=== PATIENT | male | born 1990 | race Caucasian/White ===

== ENCOUNTER 2020-04-14 19:24 | Inpatient (IN) | payer BC, OTHER ==
[~2020-04-14] VITALS: Ht 185.4 cm; Wt 106.0 kg
--- NOTE | 2020-04-14 19:30 | NUR ---
PT IGNACIA SOLIZ TO THIS ED FROM , PT TRANSFERRED HERE FOR ABNORMAL LABS H/H OF 5.7/16.3. PT GIVEN TRANSFUSION OF ONE UNIT PRIOR TO TRANSFER. PT STATES HE FEELS EXTREMELY DIZZY WHEN STANDING AND MOVING AROUND. ALSO REPORTS SLIGHT SOB WITH EXERTION LIKELY D/T ANEMIA. PT PLACED ON SPO2/BP/ECG MONITORING. PROVIDED WARM BLANKET FOR COMFORT, WCTM.
[2020-04-14] MEDS ORDERED: HYDROmorphone 1 MG/ML, 1ML INJ IVPush PRN (21:00)
[2020-04-14] MEDS ORDERED: HYDROmorphone 1 MG/ML, 1ML INJ ONE (21:04)
--- NOTE | 2020-04-14 21:24 | NUR ---
PT MEDICATED PER MAR FOR PAIN, CT COMPLETED WAITING FOR READ, PT RESTING ON GURNEY, NAD, DENIES ADDITIONAL QUESTIONS OR NEEDS AT THIS TIME. APPEARS COMFORTABLE, BED IN LOWEST, CALL LIGHT ON LAP, WCTM. WAITING FOR TEST RESULTS.
[2020-04-14 22:34] LABS: MEAN CORPUSCULAR HEMOGLOBIN 34.7 pg (27.5-34.5); RED BLOOD COUNT 1.86 x10^6/uL (4.38-5.82); RED CELL DISTRIBUTION WIDTH 17.4 % (9.4-14.8)
[2020-04-14 22:39] LABS: ALANINE AMINOTRANSFERASE 30 U/L (12-78); ALBUMIN 3.8 g/dL (3.4-5.0); ANION GAP 4 mmol/L (5-15); CALCIUM 8.7 mg/dL (8.5-10.1); CHLORIDE 109 mmol/L (98-107); CREATININE 0.91 mg/dL (0.7-1.3)
[2020-04-14 22:41] LABS: ALKALINE PHOSPHATASE 87 U/L (45-117); BILIRUBIN,TOTAL 0.4 mg/dL (0.2-1.0); TOTAL PROTEIN 7.6 g/dL (6.4-8.2)
[2020-04-14 23:13] LABS: PLATELET COUNT 11 x10^3/uL (130-400)
[2020-04-14 23:23] LABS: MD YES
[2020-04-14 23:34] LABS: LYMPH#(MANUAL) 1.95 x10^3/uL (1-3.4); LYMPHS% (MANUAL) 75 % (22-44); MONOS#(MANUAL) 0.03 x10^3/uL (0.3-2.7); MONOS% (MANUAL) 1 % (2-9); OTHER CELLS # (MANUAL) 0.16 x10^3/uL (0-0); REACTIVE LYMPHS # (MANUAL) 0.03 x10^3/uL (0-0); REACTIVE LYMPHS % (MANUAL) 1 % (0-0); SEG#(MANUAL) 0.44 x10^3/uL (1.8-6.8); SEGS% (MANUAL) 17 % (42-75)
--- NOTE | 2020-04-14 23:35 | NUR ---
ABSOLUTE NEUT COUNT 0.44
[2020-04-14 23:37] LABS: ANISOCYTOSIS 1+
[2020-04-14 23:39] LABS: OVALOCYTES 1+; ROULEAUX 1+
[2020-04-14 23:41] LABS: <PLATELET ESTIMATE> DECREASED; <PLT MORPHOLOGY> NORMAL PLT MORPH
[2020-04-14 23:46] LABS: OTHER CELLS % (MANUAL) 6 % (0-0)
[2020-04-15] VITALS (11 sets, daily range): BP systolic 113–133; BP diastolic 59–77
[2020-04-15 00:14] LABS: HCT (SEDRATE) 18.4 % (39.2-51.8)
--- NOTE | 2020-04-15 00:16 | NUR ---
PT RESTING ON GURNEY, EYES CLOSED, NAD, APPEARS COMFORTABLE, EVEN AND UNLABORED RESPIRATIONS, WCTM, WAITING FOR ADMIT BED.
--- NOTE | 2020-04-15 00:59 | NUR ---
REPORT FROM MILIND SAINZ
--- NOTE | 2020-04-15 01:03 | NUR ---
BEDSIDE REPORT TO ANANDA SAINZ, PT CARE TRANSFERRED AT THIS TIME. PT NAD, RESTING ON GURNEY, DENIES ADDITIONAL NEEDS, NO CHANGE IN CONDITION
--- NOTE | 2020-04-15 02:00 | NUR ---
PER LAB DO NOT WANT TO RUN ANTIBODY SCREEN "BECAUSE PT HAS ALREADY GOTTEN BLOOD AND IT WOULD NOT HELP TO RUN THE TEST." LAB INFORMED THAT DR VASQUEZ LIKELY WANTS THIS DONE FOR A PURPOSE AND RN WILL NOT CANCEL THE TEST BUT THEY ARE WELCOME TO CALL HER WITH THE CONCERNS. 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 ER SUP AND HOUSE SUP NOTIFIED OF LAB UNWILLINGNESS TO RUN TESTS.
--- NOTE | 2020-04-15 02:12 | NUR ---
BLOOD STILL INFUSING AT THIS TIME, NO ADVERSE REACTIONS NOTED. PT TOLERATING WELL
--- NOTE | 2020-04-15 02:43 | NUR ---
REPORT RECEIVED FROM ANANDA SAINZ
--- NOTE | 2020-04-15 02:44 | NUR ---
report received from bonita minor
--- NOTE | 2020-04-15 03:53 | NUR ---
pt placed on hospital bed.
--- NOTE | 2020-04-15 05:00 | NUR ---
PT SLEEPING, NO NEDS AT THIS TIME.
--- NOTE | 2020-04-15 06:07 | NUR ---
PT SLEEPING, NO NEEDS AT THIS TIME. RESP EVEN AND UNLABORED
[2020-04-15 06:15] LABS: ABSOLUTE RETICS # 0.029 x10^6/uL (0.5-1.5); MEAN CORPUSCULAR HGB CONC 34.7 g/dL (33.2-36.2); MEAN PLATELET VOLUME 8.1 fL (7.4-10.4); RED BLOOD COUNT 2.04 x10^6/uL (4.38-5.82); RETICULOCYTE COUNT % 1.43 % (0.5-1.5)
[2020-04-15 06:55] LABS: MD YES; PLATELET COUNT 12 x10^3/uL (130-400)
--- NOTE | 2020-04-15 06:58 | NUR ---
report given to rm minor
[2020-04-15 07:00] LABS: BAND#(MANUAL) 0.02 x10^3/uL; BANDS%(MANUAL) 1 % (0-7); EOS#(MANUAL) 0.02 x10^3/uL (0.0-0.4); EOS% (MANUAL) 1 % (1-7); LYMPH#(MANUAL) 1.05 x10^3/uL (1-3.4); LYMPHS% (MANUAL) 55 % (22-44); MONOS#(MANUAL) 0.04 x10^3/uL (0.3-2.7); MONOS% (MANUAL) 2 % (2-9); MYELOCYTES# (MANUAL) 0.02 x10^3/uL (0-0); MYELOCYTES% (MANUAL) 1 % (0-0); SEG#(MANUAL) 0.55 x10^3/uL (1.8-6.8); SEGS% (MANUAL) 29 % (42-75)
[2020-04-15 07:01] LABS: OTHER CELLS # (MANUAL) 0.21 x10^3/uL (0-0); OTHER CELLS % (MANUAL) 11 % (0-0)
[2020-04-15 07:03] LABS: <PLATELET ESTIMATE> DECREASED; ANISOCYTOSIS 1+; OVALOCYTES 1+
[2020-04-15 07:04] LABS: <PLT MORPHOLOGY> NORMAL PLT MORPH
[2020-04-15] MEDS: NICOTINE 14MG/24 HR PATCH.TD24 TD SCH (09:29)
[2020-04-15] MEDS ORDERED: ACETAMINOPHEN 325 MG TABLET PO ONE (12:00)
[2020-04-15] MEDS ORDERED: DIPHENHYDRAMINE 12.5MG/5ML, 10ML UDC PO ONE (12:00)
[2020-04-15] MEDS: OXYcodone IR 5MG TABLET PO PRN (16:04)
[2020-04-15 21:37] LABS: ABSOLUTE RETICS # 0.038 x10^6/uL (0.5-1.5); MEAN CORPUSCULAR HEMOGLOBIN 34.7 pg (27.5-34.5); MEAN CORPUSCULAR HGB CONC 35.9 g/dL (33.2-36.2); MEAN PLATELET VOLUME 7.8 fL (7.4-10.4); RED BLOOD COUNT 2.42 x10^6/uL (4.38-5.82); RED CELL DISTRIBUTION WIDTH 16.2 % (9.4-14.8); RETICULOCYTE COUNT % 1.57 % (0.5-1.5)
[2020-04-15 21:39] LABS: MD YES; PLATELET COUNT 40 x10^3/uL (130-400)
[2020-04-15 22:19] LABS: SEG#(MANUAL) 0.67 x10^3/uL (1.8-6.8); SEGS% (MANUAL) 29 % (42-75)
[2020-04-15 22:25] LABS: EOS#(MANUAL) 0.02 x10^3/uL (0.0-0.4); EOS% (MANUAL) 1 % (1-7); LYMPH#(MANUAL) 1.43 x10^3/uL (1-3.4); LYMPHS% (MANUAL) 62 % (22-44)
[2020-04-15 22:26] LABS: OTHER CELLS # (MANUAL) 0.18 x10^3/uL (0-0)
[2020-04-15 22:31] LABS: OTHER CELLS % (MANUAL) 8 % (0-0)
[2020-04-15 22:36] LABS: ANISOCYTOSIS 1+; OVALOCYTES 1+
[2020-04-15 22:37] LABS: <PLATELET ESTIMATE> DECREASED; <PLT MORPHOLOGY> NORMAL PLT MORPH; ROULEAUX 1+
[2020-04-16 04:00] VITALS: BP 126/75
[2020-04-16 05:08] VITALS: BP 126/75
[2020-04-16 06:13] LABS: MEAN CORPUSCULAR HEMOGLOBIN 34.5 pg (27.5-34.5); MEAN CORPUSCULAR HGB CONC 35.8 g/dL (33.2-36.2); MEAN PLATELET VOLUME 7.8 fL (7.4-10.4); RED BLOOD COUNT 2.51 x10^6/uL (4.38-5.82); RED CELL DISTRIBUTION WIDTH 16.3 % (9.4-14.8)
[2020-04-16 06:27] LABS: ALBUMIN 3.8 g/dL (3.4-5.0); ANION GAP 5 mmol/L (5-15); CALCIUM 9.1 mg/dL (8.5-10.1); CHLORIDE 107 mmol/L (98-107)
[2020-04-16 06:38] LABS: ALANINE AMINOTRANSFERASE 27 U/L (12-78); ALKALINE PHOSPHATASE 96 U/L (45-117); BILIRUBIN,TOTAL 0.4 mg/dL (0.2-1.0); CREATININE 1.02 mg/dL (0.7-1.3); TOTAL PROTEIN 7.9 g/dL (6.4-8.2)
[2020-04-16 06:40] LABS: PLATELET COUNT 36 x10^3/uL (130-400)
[2020-04-16 06:41] LABS: MD YES
[2020-04-16 06:45] LABS: ANISOCYTOSIS 1+; BLASTS # (MANUAL) 0.29 x10^3/uL (0-0); LYMPH#(MANUAL) 0.96 x10^3/uL (1-3.4); LYMPHS% (MANUAL) 37 % (22-44); METAMYELOCYTES# (MANUAL) 0.08 x10^3/uL (0-0); METAMYELOCYTES% (MANUAL) 3 % (0-1); OVALOCYTES 1+; SEG#(MANUAL) 1.27 x10^3/uL (1.8-6.8); SEGS% (MANUAL) 49 % (42-75)
[2020-04-16 06:46] LABS: POLYCHROMASIA 1+
[2020-04-16 06:48] LABS: <PLATELET ESTIMATE> DECREASED; <PLT MORPHOLOGY> NORMAL PLT MORPH; BLASTS % (MANUAL) 11 % (0-0)
[2020-04-16 06:50] LABS: TEAR DROPS 1+
[2020-04-16] MEDS: NICOTINE 14MG/24 HR PATCH.TD24 TD SCH (07:18)
[2020-04-16 07:55] VITALS: BP 128/79
[2020-04-16] MEDS: OXYcodone IR 5MG TABLET PO PRN ×2 (08:06→18:00)
[2020-04-16 11:06] LABS: D-DIMER 0.42 ug/mlFEU (0.00-0.52)
[2020-04-16 12:01] VITALS: BP 121/69
[2020-04-16 13:31] LABS: MICROSCOPIC NOT IND
[2020-04-16 18:54] VITALS: BP 182/82
[2020-04-16] MEDS: ACETAMINOPHEN 325 MG TABLET PO PRN (20:14)
[2020-04-17 00:36] VITALS: BP 123/76
[2020-04-17 05:58] LABS: MEAN CORPUSCULAR HEMOGLOBIN 34.8 pg (27.5-34.5); MEAN CORPUSCULAR HGB CONC 36.1 g/dL (33.2-36.2); MEAN PLATELET VOLUME 7.8 fL (7.4-10.4); RED BLOOD COUNT 2.72 x10^6/uL (4.38-5.82); RED CELL DISTRIBUTION WIDTH 15.9 % (9.4-14.8)
[2020-04-17 06:51] LABS: MD YES
[2020-04-17 06:53] LABS: BAND#(MANUAL) 0.03 x10^3/uL; BANDS%(MANUAL) 1 % (0-7); LYMPH#(MANUAL) 1.39 x10^3/uL (1-3.4); LYMPHS% (MANUAL) 41 % (22-44); MONOS#(MANUAL) 0.03 x10^3/uL (0.3-2.7); MONOS% (MANUAL) 1 % (2-9); SEG#(MANUAL) 1.53 x10^3/uL (1.8-6.8); SEGS% (MANUAL) 45 % (42-75)
[2020-04-17 06:58] LABS: ANISOCYTOSIS 1+; BLASTS # (MANUAL) 0.41 x10^3/uL (0-0); BLASTS % (MANUAL) 12 % (0-0); OVALOCYTES 1+; POLYCHROMASIA 1+; TEAR DROPS 1+
[2020-04-17 06:59] LABS: <PLATELET ESTIMATE> DECREASED; <PLT MORPHOLOGY> NORMAL PLT MORPH; PLATELET COUNT 28 x10^3/uL (130-400)
[2020-04-17] MEDS: NICOTINE 14MG/24 HR PATCH.TD24 TD SCH (07:05)
[2020-04-17] MEDS: ONDANSETRON 2MG/ML, 2ML IVPush PRN (07:43)
[2020-04-17 07:46] VITALS: BP 123/76
[2020-04-17] MEDS: OXYcodone IR 5MG TABLET PO PRN ×3 (08:46→19:41)
[2020-04-17 12:40] VITALS: BP 142/78
[2020-04-17] MEDS ORDERED: OMNIPAQUE 350 MG/ML, 100ML BOTTLE ONE (13:39)
[2020-04-17] MEDS ORDERED: ERTAPENEM 1 GM in SODIUM CHLORIDE 0.9% 50 ML IV SCH (15:00)
[2020-04-17] MEDS: ACETAMINOPHEN 325 MG TABLET PO PRN ×2 (16:23→20:37)
[2020-04-17 19:37] VITALS: BP 121/74
[2020-04-18 02:57] VITALS: BP 132/78
[2020-04-18] MEDS: ACETAMINOPHEN 325 MG TABLET PO PRN ×2 (03:09→18:44)
[2020-04-18] MEDS: OXYcodone IR 5MG TABLET PO PRN ×2 (03:10→13:13)
[2020-04-18 06:52] LABS: MEAN CORPUSCULAR HEMOGLOBIN 34.8 pg (27.5-34.5); MEAN CORPUSCULAR HGB CONC 35.8 g/dL (33.2-36.2); MEAN PLATELET VOLUME 7.7 fL (7.4-10.4); RED BLOOD COUNT 2.53 x10^6/uL (4.38-5.82); RED CELL DISTRIBUTION WIDTH 15.9 % (9.4-14.8)
[2020-04-18 07:00] LABS: ALBUMIN 3.6 g/dL (3.4-5.0); ANION GAP 8 mmol/L (5-15); CALCIUM 9.3 mg/dL (8.5-10.1); CHLORIDE 102 mmol/L (98-107)
[2020-04-18 07:04] LABS: ALANINE AMINOTRANSFERASE 24 U/L (12-78); ALKALINE PHOSPHATASE 84 U/L (45-117); BILIRUBIN,TOTAL 0.4 mg/dL (0.2-1.0); CREATININE 1.04 mg/dL (0.7-1.3); TOTAL PROTEIN 8.3 g/dL (6.4-8.2)
[2020-04-18 07:20] VITALS: BP 114/66
[2020-04-18] MEDS: ALLOPURINOL 300 MG TABLET PO SCH (07:55)
[2020-04-18 08:44] LABS: MD YES
[2020-04-18 08:45] LABS: PLATELET COUNT 21 x10^3/uL (130-400)
[2020-04-18 08:49] LABS: <PLATELET ESTIMATE> DECREASED; <PLT MORPHOLOGY> NORMAL PLT MORPH; ANISOCYTOSIS 1+; BAND#(MANUAL) 0.17 x10^3/uL; BANDS%(MANUAL) 5 % (0-7); BLASTS # (MANUAL) 0.99 x10^3/uL (0-0); LYMPH#(MANUAL) 0.79 x10^3/uL (1-3.4); LYMPHS% (MANUAL) 24 % (22-44); METAMYELOCYTES# (MANUAL) 0.07 x10^3/uL (0-0); METAMYELOCYTES% (MANUAL) 2 % (0-1); OVALOCYTES 1+; POLYCHROMASIA 1+; SEG#(MANUAL) 1.29 x10^3/uL (1.8-6.8); SEGS% (MANUAL) 39 % (42-75); TEAR DROPS 1+
[2020-04-18 08:51] LABS: BLASTS % (MANUAL) 30 % (0-0)
[2020-04-18 09:01] LABS: D-DIMER 0.48 ug/mlFEU (0.00-0.52); INTERNATIONAL NORMALIZED RATIO 1.08 (0.93-1.1); PROTHROMBIN TIME 11.4 Seconds (9.6-11.5)
[2020-04-18] MEDS ORDERED: FENTANYL PF 100 MCG/2ML ONE (10:07)
[2020-04-18] MEDS ORDERED: MIDAZOLAM 1 MG/ML, 5ML ONE ×2 (10:07)
[2020-04-18] MEDS ORDERED: NALOXONE 1 MG/ML, 2ML ONE (10:07)
[2020-04-18] MEDS ORDERED: FLUMAZENIL 0.1 MG/1 ML, 5ML ONE (10:07)
[2020-04-18] MEDS ORDERED: LIDOCAINE 1%, 10ML ONE (10:12)
[2020-04-18] MEDS ORDERED: MEROPENEM 1 GM in SODIUM CHLORIDE 0.9% 100 ML IV SCH (11:00)
[2020-04-18 12:00] VITALS: BP 126/77
[2020-04-18] MEDS: CEFEPIME 2 GM in DEXTROSE 5% 100 ML IV SCH ×2 (13:13→21:10)
[2020-04-18] MEDS: metroNIDAZOLE 500 MG TABLET PO SCH ×2 (13:13→21:10)
[2020-04-18 20:00] VITALS: BP 127/71
[2020-04-19] VITALS (8 sets, daily range): BP systolic 108–130; BP diastolic 49–85
[2020-04-19] MEDS: ACETAMINOPHEN 325 MG TABLET PO PRN (03:23)
[2020-04-19] MEDS: metroNIDAZOLE 500 MG TABLET PO SCH ×3 (06:37→21:47)
[2020-04-19] MEDS: CEFEPIME 2 GM in DEXTROSE 5% 100 ML IV SCH ×2 (06:37→13:32)
[2020-04-19 06:51] LABS: MEAN CORPUSCULAR HEMOGLOBIN 34.9 pg (27.5-34.5); MEAN CORPUSCULAR HGB CONC 35.3 g/dL (33.2-36.2); MEAN PLATELET VOLUME 8.3 fL (7.4-10.4); RED BLOOD COUNT 2.43 x10^6/uL (4.38-5.82); RED CELL DISTRIBUTION WIDTH 16.2 % (9.4-14.8)
[2020-04-19 06:53] LABS: PLATELET COUNT 12 x10^3/uL (130-400)
[2020-04-19 08:21] LABS: MD YES
[2020-04-19 08:27] LABS: BAND#(MANUAL) 0.27 x10^3/uL; BANDS%(MANUAL) 8 % (0-7); LYMPH#(MANUAL) 0.99 x10^3/uL (1-3.4); LYMPHS% (MANUAL) 29 % (22-44); METAMYELOCYTES# (MANUAL) 0.03 x10^3/uL (0-0); METAMYELOCYTES% (MANUAL) 1 % (0-1); MONOS#(MANUAL) 0.07 x10^3/uL (0.3-2.7); MONOS% (MANUAL) 2 % (2-9); SEG#(MANUAL) 1.12 x10^3/uL (1.8-6.8); SEGS% (MANUAL) 33 % (42-75)
[2020-04-19 08:28] LABS: BLASTS # (MANUAL) 0.92 x10^3/uL (0-0)
[2020-04-19 08:29] LABS: ANISOCYTOSIS 1+; BLASTS % (MANUAL) 27 % (0-0); OVALOCYTES 1+; POLYCHROMASIA 1+
[2020-04-19 08:30] LABS: <PLATELET ESTIMATE> DECREASED; <PLT MORPHOLOGY> NORMAL PLT MORPH
[2020-04-19] MEDS: ALLOPURINOL 300 MG TABLET PO SCH (11:20)
[2020-04-19] MEDS: OXYcodone IR 5MG TABLET PO PRN (13:35)
[2020-04-19] MEDS: ONDANSETRON ODT 4 MG PO PRN (16:15)
[2020-04-19] MEDS ORDERED: ACETAMINOPHEN 500 MG TABLET PO ONE (20:00)
[2020-04-19] MEDS ORDERED: SODIUM CHLORIDE 0.9% 1,000ML IVBOLUS ONE (20:00)
[2020-04-19 23:18] LABS: RAPID INFLUENZA A Negative (Negative); RAPID INFLUENZA B Negative (Negative)
[2020-04-20 00:05] VITALS: BP 118/73
[2020-04-20 00:33] VITALS: BP 115/75
[2020-04-20 00:38] VITALS: BP 115/75
[2020-04-20] MEDS: CEFEPIME 2 GM in DEXTROSE 5% 100 ML IV SCH ×3 (00:40→15:35)
[2020-04-20] MEDS: metroNIDAZOLE 500 MG TABLET PO SCH ×3 (05:04→20:15)
[2020-04-20 05:30] LABS: MEAN CORPUSCULAR HEMOGLOBIN 34.7 pg (27.5-34.5); MEAN CORPUSCULAR HGB CONC 35.3 g/dL (33.2-36.2); MEAN PLATELET VOLUME 7.5 fL (7.4-10.4); RED BLOOD COUNT 2.29 x10^6/uL (4.38-5.82); RED CELL DISTRIBUTION WIDTH 15.8 % (9.4-14.8)
[2020-04-20 05:34] LABS: PLATELET COUNT 26 x10^3/uL (130-400)
[2020-04-20 06:05] LABS: MD YES
[2020-04-20 06:08] LABS: BAND#(MANUAL) 0.16 x10^3/uL; BANDS%(MANUAL) 4 % (0-7); BLASTS # (MANUAL) 1.13 x10^3/uL (0-0); LYMPH#(MANUAL) 1.01 x10^3/uL (1-3.4); LYMPHS% (MANUAL) 26 % (22-44); MONOS#(MANUAL) 0.04 x10^3/uL (0.3-2.7); MONOS% (MANUAL) 1 % (2-9); SEG#(MANUAL) 1.56 x10^3/uL (1.8-6.8); SEGS% (MANUAL) 40 % (42-75)
[2020-04-20 06:10] LABS: BLASTS % (MANUAL) 29 % (0-0)
[2020-04-20 06:11] LABS: ANISOCYTOSIS 1+; OVALOCYTES 1+
[2020-04-20 06:12] LABS: TEAR DROPS 1+
[2020-04-20 06:13] LABS: <PLATELET ESTIMATE> DECREASED; <PLT MORPHOLOGY> NORMAL PLT MORPH
[2020-04-20 07:27] VITALS: BP 130/82
[2020-04-20] MEDS: ACETAMINOPHEN 325 MG TABLET PO PRN ×3 (08:39→21:34)
[2020-04-20] MEDS: ALLOPURINOL 300 MG TABLET PO SCH (08:39)
[2020-04-20] MEDS: THIAMINE 100MG TABLET PO SCH (08:39)
[2020-04-20] MEDS: CHOLECALCIFEROL 5,000u TAB PO SCH (08:40)
[2020-04-20] MEDS: ZINC SULFATE 220 MG CAPSULE PO SCH (08:40)
[2020-04-20] MEDS: ASCORBIC ACID 500 MG TABLET PO SCH ×2 (08:40→15:36)
[2020-04-20] MEDS: OXYcodone IR 5MG TABLET PO PRN (08:51)
[2020-04-20] MEDS: ONDANSETRON 2MG/ML, 2ML IVPush PRN (10:01)
[2020-04-20 15:08] VITALS: BP 137/70
[2020-04-20 21:05] VITALS: BP 115/52
[2020-04-21] MEDS: CEFEPIME 2 GM in DEXTROSE 5% 100 ML IV SCH ×3 (00:46→16:31)
[2020-04-21 03:17] VITALS: BP 134/78
[2020-04-21] MEDS ORDERED: CATHFLO-ALTEPLASE 2 MG/2 ML CATHFLUSH ONE (04:30)
[2020-04-21 04:31] LABS: MEAN CORPUSCULAR HEMOGLOBIN 35.8 pg (27.5-34.5); MEAN CORPUSCULAR HGB CONC 35.9 g/dL (33.2-36.2); MEAN PLATELET VOLUME 8.1 fL (7.4-10.4); RED BLOOD COUNT 2.36 x10^6/uL (4.38-5.82)
[2020-04-21 04:35] LABS: PLATELET COUNT 15 x10^3/uL (130-400)
[2020-04-21 04:38] LABS: CHLORIDE 99 mmol/L (98-107)
[2020-04-21 04:45] LABS: ALANINE AMINOTRANSFERASE 27 U/L (12-78); ALBUMIN 3.2 g/dL (3.4-5.0); ALKALINE PHOSPHATASE 74 U/L (45-117); ANION GAP 7 mmol/L (5-15); BILIRUBIN,TOTAL 0.4 mg/dL (0.2-1.0); CALCIUM 9.1 mg/dL (8.5-10.1); CREATININE 1.09 mg/dL (0.7-1.3); TOTAL PROTEIN 8.5 g/dL (6.4-8.2)
[2020-04-21] MEDS: metroNIDAZOLE 500 MG TABLET PO SCH ×3 (05:01→20:19)
[2020-04-21 06:09] LABS: MD YES
[2020-04-21 06:13] LABS: <PLATELET ESTIMATE> DECREASED; ANISOCYTOSIS 1+; BAND#(MANUAL) 0.06 x10^3/uL; BANDS%(MANUAL) 1 % (0-7); BLASTS # (MANUAL) 1.77 x10^3/uL (0-0); LYMPH#(MANUAL) 1.25 x10^3/uL (1-3.4); LYMPHS% (MANUAL) 22 % (22-44); METAMYELOCYTES# (MANUAL) 0.06 x10^3/uL (0-0); METAMYELOCYTES% (MANUAL) 1 % (0-1); MONOS#(MANUAL) 0.23 x10^3/uL (0.3-2.7); MONOS% (MANUAL) 4 % (2-9); OVALOCYTES 1+; SEG#(MANUAL) 2.34 x10^3/uL (1.8-6.8); SEGS% (MANUAL) 41 % (42-75)
[2020-04-21 06:14] LABS: <PLT MORPHOLOGY> NORMAL PLT MORPH
[2020-04-21 06:16] LABS: BLASTS % (MANUAL) 31 % (0-0)
[2020-04-21 06:17] LABS: PMNS WITH VACUOLES 1+
[2020-04-21 07:43] VITALS: BP 115/59
[2020-04-21] MEDS: ACETAMINOPHEN 325 MG TABLET PO PRN ×3 (08:04→16:32)
[2020-04-21] MEDS: ALLOPURINOL 300 MG TABLET PO SCH (08:04)
[2020-04-21] MEDS: THIAMINE 100MG TABLET PO SCH (08:04)
[2020-04-21] MEDS: ASCORBIC ACID 500 MG TABLET PO SCH ×2 (08:04→16:31)
[2020-04-21] MEDS: ZINC SULFATE 220 MG CAPSULE PO SCH (08:05)
[2020-04-21] MEDS: CHOLECALCIFEROL 5,000u TAB PO SCH (08:05)
[2020-04-21] MEDS: ONDANSETRON 2MG/ML, 2ML IVPush PRN (08:17)
[2020-04-21] MEDS: SODIUM CHLORIDE 0.9% 1,000 ML IV SCH ×2 (10:29→17:42)
[2020-04-21] MEDS: OXYcodone IR 5MG TABLET PO PRN (13:42)
[2020-04-21] MEDS ORDERED: PHARMACY INSTRUCTION MC SCH ×2 (18:00→18:30)
[2020-04-21] MEDS ORDERED: REMDESIVIR 200 MG in SODIUM CHLORIDE 0.9% 250 ML IVPB ONE (18:30)
[2020-04-21] MEDS: DEXAMETHASONE 4 MG/ML, 1ML IVPush SCH (20:19)
[2020-04-21 20:23] VITALS: BP 129/73
[2020-04-21] MEDS: ONDANSETRON ODT 4 MG PO PRN (20:52)
[2020-04-21 20:59] VITALS: BP 127/79
[2020-04-21 22:37] VITALS: BP 147/79
[2020-04-22] VITALS (7 sets, daily range): BP systolic 101–140; BP diastolic 62–79
[2020-04-22] MEDS: CEFEPIME 2 GM in DEXTROSE 5% 100 ML IV SCH ×4 (00:54→17:25)
[2020-04-22 04:47] LABS: ALBUMIN 2.7 g/dL (3.4-5.0); ANION GAP 4 mmol/L (5-15); CALCIUM 8.5 mg/dL (8.5-10.1); CHLORIDE 103 mmol/L (98-107)
[2020-04-22 04:51] LABS: ALANINE AMINOTRANSFERASE 22 U/L (12-78); ALKALINE PHOSPHATASE 64 U/L (45-117); BILIRUBIN,TOTAL 0.3 mg/dL (0.2-1.0); CREATININE 0.94 mg/dL (0.7-1.3); TOTAL PROTEIN 7.6 g/dL (6.4-8.2)
[2020-04-22] MEDS: metroNIDAZOLE 500 MG TABLET PO SCH ×3 (05:22→21:51)
[2020-04-22] MEDS: SODIUM CHLORIDE 0.9% 1,000 ML IV SCH (07:20)
[2020-04-22] MEDS: ALLOPURINOL 300 MG TABLET PO SCH (09:00)
[2020-04-22] MEDS: ASCORBIC ACID 500 MG TABLET PO SCH ×2 (09:00→16:48)
[2020-04-22] MEDS: DEXAMETHASONE 4 MG/ML, 1ML IVPush SCH (09:00)
[2020-04-22] MEDS: THIAMINE 100MG TABLET PO SCH (09:00)
[2020-04-22] MEDS: ZINC SULFATE 220 MG CAPSULE PO SCH (09:00)
[2020-04-22] MEDS: CHOLECALCIFEROL 5,000u TAB PO SCH (09:00)
[2020-04-22] MEDS ORDERED: DEXAMETHASONE 4 MG/ML, 1ML IVPush SCH (09:00)
[2020-04-22 09:46] LABS: MEAN CORPUSCULAR HEMOGLOBIN 34.8 pg (27.5-34.5); MEAN CORPUSCULAR HGB CONC 35.4 g/dL (33.2-36.2); MEAN PLATELET VOLUME 8.9 fL (7.4-10.4); RED CELL DISTRIBUTION WIDTH 16.2 % (9.4-14.8)
[2020-04-22 09:52] LABS: MD YES; PLATELET COUNT 10 x10^3/uL (130-400)
[2020-04-22 10:02] LABS: BAND#(MANUAL) 0.35 x10^3/uL; BANDS%(MANUAL) 5 % (0-7); BLASTS # (MANUAL) 1.75 x10^3/uL (0-0); LYMPH#(MANUAL) 0.84 x10^3/uL (1-3.4); LYMPHS% (MANUAL) 12 % (22-44); SEG#(MANUAL) 4.06 x10^3/uL (1.8-6.8); SEGS% (MANUAL) 58 % (42-75)
[2020-04-22 10:06] LABS: BLASTS % (MANUAL) 25 % (0-0)
[2020-04-22 10:09] LABS: ANISOCYTOSIS 1+
[2020-04-22 10:11] LABS: <PLATELET ESTIMATE> DECREASED; <PLT MORPHOLOGY> NORMAL PLT MORPH; OVALOCYTES 1+
[2020-04-22] MEDS: REMDESIVIR 100 MG in SODIUM CHLORIDE 0.9% 250 ML IVPB SCH (20:14)
[2020-04-23] VITALS (11 sets, daily range): BP systolic 105–134; BP diastolic 64–74
[2020-04-23] MEDS: CEFEPIME 2 GM in DEXTROSE 5% 100 ML IV SCH ×2 (01:19→07:35)
[2020-04-23] MEDS: SODIUM CHLORIDE 0.9% 1,000 ML IV SCH ×2 (03:07→13:10)
[2020-04-23 04:35] LABS: MEAN CORPUSCULAR HEMOGLOBIN 36.6 pg (27.5-34.5); MEAN CORPUSCULAR HGB CONC 36.1 g/dL (33.2-36.2); MEAN PLATELET VOLUME 9.6 fL (7.4-10.4); RED BLOOD COUNT 2.02 x10^6/uL (4.38-5.82); RED CELL DISTRIBUTION WIDTH 16.7 % (9.4-14.8)
[2020-04-23 04:49] LABS: ALBUMIN 2.6 g/dL (3.4-5.0); ANION GAP 4 mmol/L (5-15); CALCIUM 8.5 mg/dL (8.5-10.1); CHLORIDE 105 mmol/L (98-107)
[2020-04-23 04:53] LABS: ALANINE AMINOTRANSFERASE 26 U/L (12-78); ALKALINE PHOSPHATASE 64 U/L (45-117); BILIRUBIN,TOTAL 0.3 mg/dL (0.2-1.0); CREATININE 0.84 mg/dL (0.7-1.3); TOTAL PROTEIN 7.1 g/dL (6.4-8.2)
[2020-04-23] MEDS: metroNIDAZOLE 500 MG TABLET PO SCH (06:04)
[2020-04-23 06:18] LABS: PLATELET COUNT 8 x10^3/uL (130-400)
[2020-04-23 06:31] LABS: MD YES
[2020-04-23 06:35] LABS: BAND#(MANUAL) 0.53 x10^3/uL; BANDS%(MANUAL) 10 % (0-7); BLASTS # (MANUAL) 0.85 x10^3/uL (0-0); LYMPH#(MANUAL) 0.53 x10^3/uL (1-3.4); LYMPHS% (MANUAL) 10 % (22-44); MONOS#(MANUAL) 0.11 x10^3/uL (0.3-2.7); MONOS% (MANUAL) 2 % (2-9); SEG#(MANUAL) 3.29 x10^3/uL (1.8-6.8); SEGS% (MANUAL) 62 % (42-75)
[2020-04-23 06:37] LABS: ANISOCYTOSIS 1+; BLASTS % (MANUAL) 16 % (0-0); OVALOCYTES 1+
[2020-04-23 06:38] LABS: <PLATELET ESTIMATE> DECREASED; <PLT MORPHOLOGY> QNS FOR PLT MORPH
[2020-04-23] MEDS: ALLOPURINOL 300 MG TABLET PO SCH (07:36)
[2020-04-23] MEDS: ASCORBIC ACID 500 MG TABLET PO SCH ×2 (07:36→16:11)
[2020-04-23] MEDS: CHOLECALCIFEROL 5,000u TAB PO SCH (07:36)
[2020-04-23] MEDS: DEXAMETHASONE 4 MG/ML, 1ML IVPush SCH (07:36)
[2020-04-23] MEDS: THIAMINE 100MG TABLET PO SCH (07:36)
[2020-04-23] MEDS: ZINC SULFATE 220 MG CAPSULE PO SCH (07:36)
[2020-04-23] MEDS: REMDESIVIR 100 MG in SODIUM CHLORIDE 0.9% 250 ML IVPB SCH (19:49)
[2020-04-24] VITALS (9 sets, daily range): BP systolic 114–132; BP diastolic 68–76
[2020-04-24] MEDS: SODIUM CHLORIDE 0.9% 1,000 ML IV SCH ×3 (04:02→19:45)
[2020-04-24 05:58] LABS: MEAN CORPUSCULAR HEMOGLOBIN 37.5 pg (27.5-34.5); MEAN CORPUSCULAR HGB CONC 35.9 g/dL (33.2-36.2); RED BLOOD COUNT 1.78 x10^6/uL (4.38-5.82); RED CELL DISTRIBUTION WIDTH 17.2 % (9.4-14.8)
[2020-04-24 05:59] LABS: ALANINE AMINOTRANSFERASE 25 U/L (12-78); ALBUMIN 2.5 g/dL (3.4-5.0); ANION GAP 5 mmol/L (5-15); CALCIUM 8.6 mg/dL (8.5-10.1); CHLORIDE 106 mmol/L (98-107); CREATININE 0.74 mg/dL (0.7-1.3)
[2020-04-24 06:01] LABS: ALKALINE PHOSPHATASE 61 U/L (45-117); BILIRUBIN,TOTAL 0.3 mg/dL (0.2-1.0); TOTAL PROTEIN 6.9 g/dL (6.4-8.2)
[2020-04-24 07:28] LABS: MD YES; PLATELET COUNT 22 x10^3/uL (130-400)
[2020-04-24 07:31] LABS: BAND#(MANUAL) 0.24 x10^3/uL; BANDS%(MANUAL) 10 % (0-7); LYMPH#(MANUAL) 0.38 x10^3/uL (1-3.4); LYMPHS% (MANUAL) 16 % (22-44); METAMYELOCYTES# (MANUAL) 0.02 x10^3/uL (0-0); METAMYELOCYTES% (MANUAL) 1 % (0-1); MONOS#(MANUAL) 0.05 x10^3/uL (0.3-2.7); MONOS% (MANUAL) 2 % (2-9); MYELOCYTES# (MANUAL) 0.02 x10^3/uL (0-0); MYELOCYTES% (MANUAL) 1 % (0-0); SEG#(MANUAL) 1.32 x10^3/uL (1.8-6.8); SEGS% (MANUAL) 55 % (42-75)
[2020-04-24 07:32] LABS: <PLATELET ESTIMATE> DECREASED; <PLT MORPHOLOGY> NORMAL PLT MORPH; ANISOCYTOSIS 1+; BLASTS # (MANUAL) 0.36 x10^3/uL (0-0); BLASTS % (MANUAL) 15 % (0-0); OVALOCYTES 1+
[2020-04-24] MEDS ORDERED: ALBUTEROL HFA 90 MCG/SPRAY INH PRN (09:00)
[2020-04-24] MEDS: DEXAMETHASONE 4 MG/ML, 1ML IVPush SCH (10:49)
[2020-04-24] MEDS: CHOLECALCIFEROL 5,000u TAB PO SCH (10:49)
[2020-04-24] MEDS: ALLOPURINOL 300 MG TABLET PO SCH (10:49)
[2020-04-24] MEDS: THIAMINE 100MG TABLET PO SCH (10:50)
[2020-04-24] MEDS: ZINC SULFATE 220 MG CAPSULE PO SCH (10:50)
[2020-04-24] MEDS: ASCORBIC ACID 500 MG TABLET PO SCH ×2 (10:50→17:32)
[2020-04-24] MEDS: REMDESIVIR 100 MG in SODIUM CHLORIDE 0.9% 250 ML IVPB SCH (19:45)
[2020-04-25] VITALS (12 sets, daily range): BP systolic 122–150; BP diastolic 62–85
[2020-04-25] MEDS: SODIUM CHLORIDE 0.9% 1,000 ML IV SCH ×2 (05:45→20:14)
[2020-04-25 06:18] LABS: ALBUMIN 2.4 g/dL (3.4-5.0); ANION GAP 4 mmol/L (5-15); CALCIUM 8.3 mg/dL (8.5-10.1); CHLORIDE 109 mmol/L (98-107)
[2020-04-25 06:27] LABS: ALANINE AMINOTRANSFERASE 26 U/L (12-78); ALKALINE PHOSPHATASE 71 U/L (45-117); BILIRUBIN,TOTAL 0.4 mg/dL (0.2-1.0); CREATININE 0.74 mg/dL (0.7-1.3); TOTAL PROTEIN 6.9 g/dL (6.4-8.2)
[2020-04-25 06:32] LABS: MEAN CORPUSCULAR HEMOGLOBIN 37.5 pg (27.5-34.5); MEAN CORPUSCULAR HGB CONC 36.3 g/dL (33.2-36.2); RED BLOOD COUNT 1.86 x10^6/uL (4.38-5.82)
[2020-04-25 06:37] LABS: C-REACTIVE PROTEIN, QUANT > 19.00 mg/dL (0.02-0.49)
[2020-04-25 06:45] LABS: PLATELET COUNT 18 x10^3/uL (130-400)
[2020-04-25 06:46] LABS: HCT (SEDRATE) 19.2 % (39.2-51.8)
[2020-04-25 07:50] LABS: SEDIMENTATION RATE > 120 mm/hr (0-10)
[2020-04-25 08:31] LABS: MD YES
[2020-04-25 08:35] LABS: ANISOCYTOSIS 1+; BAND#(MANUAL) 0.04 x10^3/uL; BANDS%(MANUAL) 2 % (0-7); BLASTS # (MANUAL) 0.16 x10^3/uL (0-0); LYMPHS% (MANUAL) 40 % (22-44); METAMYELOCYTES# (MANUAL) 0.08 x10^3/uL (0-0); METAMYELOCYTES% (MANUAL) 4 % (0-1); MONOS#(MANUAL) 0.06 x10^3/uL (0.3-2.7); MONOS% (MANUAL) 3 % (2-9); MYELOCYTES# (MANUAL) 0.04 x10^3/uL (0-0); MYELOCYTES% (MANUAL) 2 % (0-0); OVALOCYTES 1+; SEG#(MANUAL) 0.82 x10^3/uL (1.8-6.8); SEGS% (MANUAL) 41 % (42-75)
[2020-04-25 08:36] LABS: <PLATELET ESTIMATE> DECREASED; <PLT MORPHOLOGY> NORMAL PLT MORPH
[2020-04-25 08:41] LABS: BLASTS % (MANUAL) 8 % (0-0)
[2020-04-25] MEDS: CHOLECALCIFEROL 5,000u TAB PO SCH (10:04)
[2020-04-25] MEDS: DEXAMETHASONE 4 MG/ML, 1ML IVPush SCH (10:04)
[2020-04-25] MEDS: ALLOPURINOL 300 MG TABLET PO SCH (10:04)
[2020-04-25] MEDS: ASCORBIC ACID 500 MG TABLET PO SCH ×2 (10:04→15:41)
[2020-04-25] MEDS: THIAMINE 100MG TABLET PO SCH (10:05)
[2020-04-25] MEDS: ZINC SULFATE 220 MG CAPSULE PO SCH (15:41)
[2020-04-25] MEDS: REMDESIVIR 100 MG in SODIUM CHLORIDE 0.9% 250 ML IVPB SCH (20:14)
[2020-04-26 00:17] VITALS: BP 156/77
[2020-04-26 05:50] VITALS: BP 148/73
[2020-04-26 06:02] LABS: MEAN CORPUSCULAR HEMOGLOBIN 34.6 pg (27.5-34.5); MEAN CORPUSCULAR HGB CONC 35.4 g/dL (33.2-36.2); MEAN PLATELET VOLUME 8.8 fL (7.4-10.4); RED BLOOD COUNT 2.76 x10^6/uL (4.38-5.82); RED CELL DISTRIBUTION WIDTH 17.7 % (9.4-14.8)
[2020-04-26 06:11] LABS: PLATELET COUNT 17 x10^3/uL (130-400)
[2020-04-26 06:50] LABS: MD YES
[2020-04-26 06:53] LABS: SEG#(MANUAL) 0.68 x10^3/uL (1.8-6.8); SEGS% (MANUAL) 36 % (42-75)
[2020-04-26 06:56] LABS: BAND#(MANUAL) 0.11 x10^3/uL; BANDS%(MANUAL) 6 % (0-7); BLASTS # (MANUAL) 0.15 x10^3/uL (0-0); BLASTS % (MANUAL) 8 % (0-0); LYMPH#(MANUAL) 0.84 x10^3/uL (1-3.4); LYMPHS% (MANUAL) 44 % (22-44); METAMYELOCYTES# (MANUAL) 0.04 x10^3/uL (0-0); METAMYELOCYTES% (MANUAL) 2 % (0-1); MONOS#(MANUAL) 0.04 x10^3/uL (0.3-2.7); MONOS% (MANUAL) 2 % (2-9); REACTIVE LYMPHS # (MANUAL) 0.04 x10^3/uL (0-0); REACTIVE LYMPHS % (MANUAL) 2 % (0-0)
[2020-04-26 06:57] LABS: <PLATELET ESTIMATE> DECREASED; <PLT MORPHOLOGY> NORMAL PLT MORPH; ANISOCYTOSIS 1+; OVALOCYTES 1+
[2020-04-26 07:03] VITALS: BP 156/102
[2020-04-26] MEDS: CHOLECALCIFEROL 5,000u TAB PO SCH (08:56)
[2020-04-26] MEDS: THIAMINE 100MG TABLET PO SCH (08:56)
[2020-04-26] MEDS: ASCORBIC ACID 500 MG TABLET PO SCH ×2 (08:56→16:31)
[2020-04-26] MEDS: ALLOPURINOL 300 MG TABLET PO SCH (08:56)
[2020-04-26] MEDS: DEXAMETHASONE 4 MG/ML, 1ML IVPush SCH (08:56)
[2020-04-26] MEDS: ZINC SULFATE 220 MG CAPSULE PO SCH (08:56)
[2020-04-26 11:58] VITALS: BP 140/82
[2020-04-26 19:47] VITALS: BP 119/59
[2020-04-27 01:16] VITALS: BP 130/76
[2020-04-27 06:21] LABS: MEAN CORPUSCULAR HEMOGLOBIN 34.3 pg (27.5-34.5); MEAN CORPUSCULAR HGB CONC 35.7 g/dL (33.2-36.2); MEAN PLATELET VOLUME 9.5 fL (7.4-10.4); RED BLOOD COUNT 2.86 x10^6/uL (4.38-5.82)
[2020-04-27 06:41] LABS: PLATELET COUNT 13 x10^3/uL (130-400)
[2020-04-27 06:57] LABS: MD YES
[2020-04-27 07:06] LABS: BAND#(MANUAL) 0.04 x10^3/uL; BANDS%(MANUAL) 2 % (0-7); SEG#(MANUAL) 0.54 x10^3/uL (1.8-6.8); SEGS% (MANUAL) 30 % (42-75)
[2020-04-27 07:07] LABS: <PLATELET ESTIMATE> DECREASED; <PLT MORPHOLOGY> NORMAL PLT MORPH; ANISOCYTOSIS 1+; BLASTS # (MANUAL) 0.13 x10^3/uL (0-0); LYMPH#(MANUAL) 0.86 x10^3/uL (1-3.4); LYMPHS% (MANUAL) 48 % (22-44); METAMYELOCYTES# (MANUAL) 0.05 x10^3/uL (0-0); METAMYELOCYTES% (MANUAL) 3 % (0-1); MONOS#(MANUAL) 0.07 x10^3/uL (0.3-2.7); MONOS% (MANUAL) 4 % (2-9); MYELOCYTES# (MANUAL) 0.11 x10^3/uL (0-0); MYELOCYTES% (MANUAL) 6 % (0-0); OVALOCYTES 1+
[2020-04-27 07:20] LABS: BLASTS % (MANUAL) 7 % (0-0)
[2020-04-27 09:04] VITALS: BP 129/73
[2020-04-27] MEDS: DEXAMETHASONE 4 MG/ML, 1ML IVPush SCH (09:06)
[2020-04-27] MEDS: ASCORBIC ACID 500 MG TABLET PO SCH ×2 (09:06→16:37)
[2020-04-27] MEDS: ALLOPURINOL 300 MG TABLET PO SCH (09:06)
[2020-04-27] MEDS: CHOLECALCIFEROL 5,000u TAB PO SCH (09:06)
[2020-04-27] MEDS: ZINC SULFATE 220 MG CAPSULE PO SCH (09:06)
[2020-04-27] MEDS: THIAMINE 100MG TABLET PO SCH (09:06)
[2020-04-27 12:10] VITALS: BP 113/76
[2020-04-27 16:13] VITALS: BP 117/69
[2020-04-27 19:47] VITALS: BP 106/64
[2020-04-28] VITALS: BP 124/78
[2020-04-28 04:46] VITALS: BP 124/78
[2020-04-28 05:14] LABS: BASOPHILS % (AUTO) 1 % (0-1); EOSINOPHILS % (AUTO) 0 % (1-7); LYMPHOCYTES % (AUTO) 50 % (22-44); MEAN CORPUSCULAR HEMOGLOBIN 33.8 pg (27.5-34.5); MEAN CORPUSCULAR HGB CONC 35.4 g/dL (33.2-36.2); MEAN PLATELET VOLUME 9.7 fL (7.4-10.4); MONOCYTES % (AUTO) 3 % (2-9); NEUTROPHILS % (AUTO) 45 % (42-75); RED BLOOD COUNT 3.09 x10^6/uL (4.38-5.82); RED CELL DISTRIBUTION WIDTH 16.6 % (9.4-14.8)
[2020-04-28 05:21] LABS: PLATELET COUNT 13 x10^3/uL (130-400)
[2020-04-28 05:27] LABS: ALBUMIN 2.6 g/dL (3.4-5.0); ANION GAP 5 mmol/L (5-15); CALCIUM 8.6 mg/dL (8.5-10.1); CHLORIDE 104 mmol/L (98-107)
[2020-04-28 05:31] LABS: CREATININE 0.84 mg/dL (0.7-1.3)
[2020-04-28 05:32] LABS: ALANINE AMINOTRANSFERASE 49 U/L (12-78); ALKALINE PHOSPHATASE 95 U/L (45-117); BILIRUBIN,TOTAL 0.4 mg/dL (0.2-1.0); TOTAL PROTEIN 7.4 g/dL (6.4-8.2)
[2020-04-28 06:00] LABS: MD NO
[2020-04-28 06:10] LABS: BLASTS # (MANUAL) 0.09 x10^3/uL (0-0); LYMPH#(MANUAL) 1.14 x10^3/uL (1-3.4); LYMPHS% (MANUAL) 52 % (22-44); METAMYELOCYTES# (MANUAL) 0.09 x10^3/uL (0-0); METAMYELOCYTES% (MANUAL) 4 % (0-1); MONOS#(MANUAL) 0.22 x10^3/uL (0.3-2.7); MONOS% (MANUAL) 10 % (2-9); MYELOCYTES# (MANUAL) 0.02 x10^3/uL (0-0); MYELOCYTES% (MANUAL) 1 % (0-0); SEG#(MANUAL) 0.64 x10^3/uL (1.8-6.8); SEGS% (MANUAL) 29 % (42-75)
[2020-04-28 06:11] LABS: <PLATELET ESTIMATE> DECREASED; <PLT MORPHOLOGY> NORMAL PLT MORPH; ANISOCYTOSIS 1+; OVALOCYTES 1+
[2020-04-28 06:12] LABS: BLASTS % (MANUAL) 4 % (0-0)
[2020-04-28] MEDS: CHOLECALCIFEROL 5,000u TAB PO SCH (08:39)
[2020-04-28] MEDS: THIAMINE 100MG TABLET PO SCH (08:39)
[2020-04-28] MEDS: ALLOPURINOL 300 MG TABLET PO SCH (08:39)
[2020-04-28] MEDS: ASCORBIC ACID 500 MG TABLET PO SCH ×2 (08:39→16:43)
[2020-04-28] MEDS: ZINC SULFATE 220 MG CAPSULE PO SCH (08:39)
[2020-04-28 08:40] VITALS: BP 116/78
[2020-04-28 13:49] VITALS: BP 118/80
[2020-04-28] MEDS ORDERED: CALCIUM CARBONATE 500 MG TAB.CHEW ONE (16:39)
[2020-04-28] MEDS: CALCIUM CARBONATE 500 MG TAB.CHEW PO PRN (16:43)
[2020-04-28 19:06] VITALS: BP 114/71
[2020-04-29 00:13] VITALS: BP 93/57
[2020-04-29 06:33] LABS: MEAN CORPUSCULAR HEMOGLOBIN 33.4 pg (27.5-34.5); MEAN CORPUSCULAR HGB CONC 35.1 g/dL (33.2-36.2); RED CELL DISTRIBUTION WIDTH 16.1 % (9.4-14.8)
[2020-04-29 07:38] LABS: PLATELET COUNT 11 x10^3/uL (130-400)
[2020-04-29 07:39] LABS: MD YES
[2020-04-29 07:41] LABS: BAND#(MANUAL) 0.34 x10^3/uL; BANDS%(MANUAL) 9 % (0-7); BLASTS # (MANUAL) 0.19 x10^3/uL (0-0); EOS#(MANUAL) 0.04 x10^3/uL (0.0-0.4); EOS% (MANUAL) 1 % (1-7); LYMPH#(MANUAL) 1.44 x10^3/uL (1-3.4); LYMPHS% (MANUAL) 38 % (22-44); METAMYELOCYTES# (MANUAL) 0.11 x10^3/uL (0-0); METAMYELOCYTES% (MANUAL) 3 % (0-1); MONOS#(MANUAL) 0.15 x10^3/uL (0.3-2.7); MONOS% (MANUAL) 4 % (2-9); MYELOCYTES# (MANUAL) 0.15 x10^3/uL (0-0); MYELOCYTES% (MANUAL) 4 % (0-0); SEG#(MANUAL) 1.37 x10^3/uL (1.8-6.8); SEGS% (MANUAL) 36 % (42-75)
[2020-04-29 07:42] LABS: ANISOCYTOSIS 1+
[2020-04-29 07:44] LABS: <PLATELET ESTIMATE> DECREASED; <PLT MORPHOLOGY> NORMAL PLT MORPH; OVALOCYTES 1+
[2020-04-29 07:47] LABS: BLASTS % (MANUAL) 5 % (0-0)
[2020-04-29] MEDS: CHOLECALCIFEROL 5,000u TAB PO SCH (08:07)
[2020-04-29] MEDS: ZINC SULFATE 220 MG CAPSULE PO SCH (08:07)
[2020-04-29] MEDS: ALLOPURINOL 300 MG TABLET PO SCH (08:07)
[2020-04-29] MEDS: ASCORBIC ACID 500 MG TABLET PO SCH ×2 (08:08→15:01)
[2020-04-29] MEDS: THIAMINE 100MG TABLET PO SCH (08:08)
[2020-04-29 09:49] VITALS: BP 104/66
[2020-04-29 13:56] VITALS: BP 111/52
[2020-04-29 19:12] VITALS: BP 120/62
[2020-04-30] VITALS (7 sets, daily range): BP systolic 98–116; BP diastolic 50–71
[2020-04-30] MEDS: ACETAMINOPHEN 325 MG TABLET PO PRN ×2 (00:08→16:31)
[2020-04-30 05:26] LABS: MEAN CORPUSCULAR HEMOGLOBIN 33.4 pg (27.5-34.5); MEAN CORPUSCULAR HGB CONC 34.8 g/dL (33.2-36.2); MEAN PLATELET VOLUME 9.1 fL (7.4-10.4); RED BLOOD COUNT 3.07 x10^6/uL (4.38-5.82); RED CELL DISTRIBUTION WIDTH 16.8 % (9.4-14.8)
[2020-04-30 05:32] LABS: PLATELET COUNT 9 x10^3/uL (130-400)
[2020-04-30 05:58] LABS: MD YES
[2020-04-30 06:06] LABS: BAND#(MANUAL) 0.39 x10^3/uL; BANDS%(MANUAL) 7 % (0-7); BLASTS # (MANUAL) 0.11 x10^3/uL (0-0); LYMPH#(MANUAL) 0.94 x10^3/uL (1-3.4); LYMPHS% (MANUAL) 17 % (22-44); METAMYELOCYTES# (MANUAL) 0.06 x10^3/uL (0-0); METAMYELOCYTES% (MANUAL) 1 % (0-1); MONOS#(MANUAL) 0.11 x10^3/uL (0.3-2.7); MONOS% (MANUAL) 2 % (2-9); MYELOCYTES# (MANUAL) 0.11 x10^3/uL (0-0); MYELOCYTES% (MANUAL) 2 % (0-0); SEGS% (MANUAL) 69 % (42-75)
[2020-04-30 06:08] LABS: <PLATELET ESTIMATE> DECREASED; <PLT MORPHOLOGY> NORMAL PLT MORPH; ANISOCYTOSIS 1+; BLASTS % (MANUAL) 2 % (0-0); OVALOCYTES 1+
[2020-04-30] MEDS: CEFEPIME 2 GM in DEXTROSE 5% 100 ML IV SCH ×2 (08:53→17:51)
[2020-04-30] MEDS: CHOLECALCIFEROL 5,000u TAB PO SCH (08:54)
[2020-04-30] MEDS: ZINC SULFATE 220 MG CAPSULE PO SCH (08:54)
[2020-04-30] MEDS: THIAMINE 100MG TABLET PO SCH (08:54)
[2020-04-30] MEDS: ALLOPURINOL 300 MG TABLET PO SCH (08:54)
[2020-04-30] MEDS: ASCORBIC ACID 500 MG TABLET PO SCH ×2 (08:54→17:51)
[2020-05-01 00:41] VITALS: BP 101/40
[2020-05-01] MEDS: CEFEPIME 2 GM in DEXTROSE 5% 100 ML IV SCH ×3 (01:56→17:19)
[2020-05-01] MEDS: OXYcodone IR 5MG TABLET PO PRN ×3 (02:04→23:54)
[2020-05-01 05:44] LABS: MEAN CORPUSCULAR HEMOGLOBIN 33.2 pg (27.5-34.5); MEAN CORPUSCULAR HGB CONC 34.9 g/dL (33.2-36.2); MEAN PLATELET VOLUME 7.7 fL (7.4-10.4); RED BLOOD COUNT 2.65 x10^6/uL (4.38-5.82); RED CELL DISTRIBUTION WIDTH 16.5 % (9.4-14.8)
[2020-05-01 05:47] LABS: CHLORIDE 102 mmol/L (98-107)
[2020-05-01 05:51] LABS: PLATELET COUNT 30 x10^3/uL (130-400)
[2020-05-01 05:54] LABS: ALANINE AMINOTRANSFERASE 46 U/L (12-78); ALBUMIN 2.3 g/dL (3.4-5.0); ALKALINE PHOSPHATASE 86 U/L (45-117); ANION GAP 4 mmol/L (5-15); BILIRUBIN,TOTAL 0.4 mg/dL (0.2-1.0); CALCIUM 7.9 mg/dL (8.5-10.1); CREATININE 0.71 mg/dL (0.7-1.3); TOTAL PROTEIN 6.9 g/dL (6.4-8.2)
[2020-05-01 06:15] LABS: MD YES
[2020-05-01 06:19] LABS: BAND#(MANUAL) 0.27 x10^3/uL; BANDS%(MANUAL) 5 % (0-7); BLASTS # (MANUAL) 0.22 x10^3/uL (0-0); LYMPH#(MANUAL) 1.19 x10^3/uL (1-3.4); LYMPHS% (MANUAL) 22 % (22-44); METAMYELOCYTES# (MANUAL) 0.22 x10^3/uL (0-0); METAMYELOCYTES% (MANUAL) 4 % (0-1); MONOS#(MANUAL) 0.16 x10^3/uL (0.3-2.7); MONOS% (MANUAL) 3 % (2-9); MYELOCYTES# (MANUAL) 0.05 x10^3/uL (0-0); MYELOCYTES% (MANUAL) 1 % (0-0); SEG#(MANUAL) 3.29 x10^3/uL (1.8-6.8); SEGS% (MANUAL) 61 % (42-75)
[2020-05-01 06:20] LABS: <PLATELET ESTIMATE> DECREASED; <PLT MORPHOLOGY> NORMAL PLT MORPH; ANISOCYTOSIS 1+; OVALOCYTES 1+
[2020-05-01 06:22] LABS: BLASTS % (MANUAL) 4 % (0-0)
[2020-05-01] MEDS: ZINC SULFATE 220 MG CAPSULE PO SCH (09:04)
[2020-05-01] MEDS: CHOLECALCIFEROL 5,000u TAB PO SCH (09:05)
[2020-05-01] MEDS: THIAMINE 100MG TABLET PO SCH (09:05)
[2020-05-01] MEDS: ALLOPURINOL 300 MG TABLET PO SCH (09:05)
[2020-05-01] MEDS: ASCORBIC ACID 500 MG TABLET PO SCH ×2 (09:05→17:19)
[2020-05-01 09:10] VITALS: BP 110/61
[2020-05-01 12:22] VITALS: BP 117/60
[2020-05-01] MEDS: ACETAMINOPHEN 325 MG TABLET PO PRN ×2 (15:14→23:54)
[2020-05-01 19:10] VITALS: BP 133/54
[2020-05-02] MEDS: OXYcodone IR 5MG TABLET PO PRN ×2 (00:05→18:25)
[2020-05-02 00:06] VITALS: BP 119/65
[2020-05-02] MEDS: CEFEPIME 2 GM in DEXTROSE 5% 100 ML IV SCH ×3 (02:54→18:26)
[2020-05-02 06:15] LABS: MEAN CORPUSCULAR HEMOGLOBIN 33.1 pg (27.5-34.5); MEAN PLATELET VOLUME 8.3 fL (7.4-10.4); RED BLOOD COUNT 2.54 x10^6/uL (4.38-5.82); RED CELL DISTRIBUTION WIDTH 16.5 % (9.4-14.8)
[2020-05-02 06:26] LABS: ALANINE AMINOTRANSFERASE 65 U/L (12-78); ALBUMIN 2.2 g/dL (3.4-5.0); ANION GAP 4 mmol/L (5-15); CALCIUM 8.3 mg/dL (8.5-10.1); CHLORIDE 103 mmol/L (98-107); CREATININE 0.69 mg/dL (0.7-1.3)
[2020-05-02 06:27] LABS: PLATELET COUNT 20 x10^3/uL (130-400)
[2020-05-02 06:28] LABS: ALKALINE PHOSPHATASE 90 U/L (45-117); BILIRUBIN,TOTAL 0.5 mg/dL (0.2-1.0); TOTAL PROTEIN 6.9 g/dL (6.4-8.2)
[2020-05-02 06:37] LABS: MD YES
[2020-05-02 06:44] LABS: BAND#(MANUAL) 0.07 x10^3/uL; BANDS%(MANUAL) 2 % (0-7); BLASTS # (MANUAL) 0.07 x10^3/uL (0-0); LYMPH#(MANUAL) 1.02 x10^3/uL (1-3.4); LYMPHS% (MANUAL) 29 % (22-44); METAMYELOCYTES# (MANUAL) 0.04 x10^3/uL (0-0); METAMYELOCYTES% (MANUAL) 1 % (0-1); MONOS#(MANUAL) 0.07 x10^3/uL (0.3-2.7); MONOS% (MANUAL) 2 % (2-9); SEG#(MANUAL) 2.24 x10^3/uL (1.8-6.8); SEGS% (MANUAL) 64 % (42-75)
[2020-05-02 06:46] LABS: ANISOCYTOSIS 1+; OVALOCYTES 1+
[2020-05-02 06:47] LABS: <PLATELET ESTIMATE> DECREASED; <PLT MORPHOLOGY> NORMAL PLT MORPH
[2020-05-02 06:48] LABS: BLASTS % (MANUAL) 2 % (0-0)
[2020-05-02] MEDS ORDERED: SODIUM CHLORIDE 0.9% 1,000ML IVBOLUS ONE (07:00)
[2020-05-02 07:30] VITALS: BP 119/61
[2020-05-02] MEDS: ASCORBIC ACID 500 MG TABLET PO SCH ×2 (08:23→16:15)
[2020-05-02] MEDS: ACETAMINOPHEN 325 MG TABLET PO PRN ×2 (08:24→16:15)
[2020-05-02] MEDS: ALLOPURINOL 300 MG TABLET PO SCH (08:24)
[2020-05-02] MEDS: THIAMINE 100MG TABLET PO SCH (08:24)
[2020-05-02] MEDS: ZINC SULFATE 220 MG CAPSULE PO SCH (08:24)
[2020-05-02] MEDS: CHOLECALCIFEROL 5,000u TAB PO SCH (08:24)
[2020-05-02] MEDS ORDERED: VANCOMYCIN 2,500 MG in SODIUM CHLORIDE 0.9% 500 ML IV ONE (09:00)
[2020-05-02] MEDS ORDERED: PHARMACOKINETIC MONITORING MC PRN (09:00)
[2020-05-02] MEDS ORDERED: VANCOMYCIN PER PHARMACY MC PRN (09:00)
[2020-05-02 11:29] LABS: HCT (SEDRATE) 22.1 % (39.2-51.8)
[2020-05-02 11:57] LABS: C-REACTIVE PROTEIN, QUANT > 19.00 mg/dL (0.02-0.49)
[2020-05-02 12:25] VITALS: BP 124/60
[2020-05-02 16:16] VITALS: BP 114/60
[2020-05-02 18:26] VITALS: BP 126/70
[2020-05-02] MEDS: VANCOMYCIN 2,000 MG in SODIUM CHLORIDE 0.9% 500 ML IV SCH (20:36)
[2020-05-03 01:23] VITALS: BP 108/59
[2020-05-03] MEDS: CEFEPIME 2 GM in DEXTROSE 5% 100 ML IV SCH ×3 (01:35→22:23)
[2020-05-03] MEDS: ACETAMINOPHEN 325 MG TABLET PO PRN ×2 (01:35→19:36)
[2020-05-03 07:33] VITALS: BP 126/71
[2020-05-03] MEDS: ALLOPURINOL 300 MG TABLET PO SCH (11:14)
[2020-05-03] MEDS: CHOLECALCIFEROL 5,000u TAB PO SCH (11:14)
[2020-05-03] MEDS: THIAMINE 100MG TABLET PO SCH (11:14)
[2020-05-03] MEDS: ZINC SULFATE 220 MG CAPSULE PO SCH (11:14)
[2020-05-03] MEDS: ASCORBIC ACID 500 MG TABLET PO SCH ×2 (11:14→16:56)
[2020-05-03] MEDS: VANCOMYCIN 2,000 MG in SODIUM CHLORIDE 0.9% 500 ML IV SCH ×2 (11:14→20:33)
[2020-05-03 11:24] LABS: MEAN CORPUSCULAR HEMOGLOBIN 33.4 pg (27.5-34.5); MEAN CORPUSCULAR HGB CONC 35.4 g/dL (33.2-36.2); MEAN PLATELET VOLUME 8.3 fL (7.4-10.4); RED BLOOD COUNT 2.32 x10^6/uL (4.38-5.82)
[2020-05-03 11:25] LABS: MD YES
[2020-05-03 11:26] LABS: PLATELET COUNT 17 x10^3/uL (130-400)
[2020-05-03 11:37] LABS: ALANINE AMINOTRANSFERASE 74 U/L (12-78); ALBUMIN 1.8 g/dL (3.4-5.0); ANION GAP 5 mmol/L (5-15); CHLORIDE 103 mmol/L (98-107); CREATININE 0.72 mg/dL (0.7-1.3)
[2020-05-03 11:39] LABS: ALKALINE PHOSPHATASE 99 U/L (45-117); BILIRUBIN,TOTAL 0.5 mg/dL (0.2-1.0); TOTAL PROTEIN 6.3 g/dL (6.4-8.2)
[2020-05-03 12:13] LABS: METAMYELOCYTES# (MANUAL) 0.05 x10^3/uL (0-0); METAMYELOCYTES% (MANUAL) 1 % (0-1)
[2020-05-03 12:14] LABS: ANISOCYTOSIS 1+; BAND#(MANUAL) 0.23 x10^3/uL; BANDS%(MANUAL) 5 % (0-7); BLASTS # (MANUAL) 0.18 x10^3/uL (0-0); LYMPHS% (MANUAL) 24 % (22-44); SEG#(MANUAL) 3.04 x10^3/uL (1.8-6.8); SEGS% (MANUAL) 66 % (42-75)
[2020-05-03 12:15] LABS: <PLATELET ESTIMATE> DECREASED; <PLT MORPHOLOGY> NORMAL PLT MORPH; OVALOCYTES 1+
[2020-05-03 12:20] LABS: BLASTS % (MANUAL) 4 % (0-0)
[2020-05-03 12:29] VITALS: BP 109/60
[2020-05-03 18:57] VITALS: BP 126/63
[2020-05-04] VITALS (7 sets, daily range): BP systolic 115–127; BP diastolic 63–77
[2020-05-04 05:56] LABS: MEAN CORPUSCULAR HEMOGLOBIN 33.3 pg (27.5-34.5); MEAN CORPUSCULAR HGB CONC 34.9 g/dL (33.2-36.2); MEAN PLATELET VOLUME 8.3 fL (7.4-10.4); RED BLOOD COUNT 2.01 x10^6/uL (4.38-5.82); RED CELL DISTRIBUTION WIDTH 16.6 % (9.4-14.8)
[2020-05-04] MEDS: CEFEPIME 2 GM in DEXTROSE 5% 100 ML IV SCH ×3 (05:56→22:08)
[2020-05-04 06:03] LABS: ALBUMIN 1.9 g/dL (3.4-5.0); ANION GAP 4 mmol/L (5-15); CALCIUM 7.9 mg/dL (8.5-10.1); CHLORIDE 104 mmol/L (98-107); CREATININE 0.61 mg/dL (0.7-1.3)
[2020-05-04 06:08] LABS: ALANINE AMINOTRANSFERASE 71 U/L (12-78); ALKALINE PHOSPHATASE 101 U/L (45-117); BILIRUBIN,TOTAL 0.5 mg/dL (0.2-1.0); CREATININE 0.61 mg/dL (0.7-1.3); TOTAL PROTEIN 6.3 g/dL (6.4-8.2); VANCOMYCIN,TROUGH 7.9 mcg/mL (5.0-10.0)
[2020-05-04 06:10] LABS: PLATELET COUNT 13 x10^3/uL (130-400)
[2020-05-04 06:33] LABS: MD YES
[2020-05-04 06:35] LABS: BAND#(MANUAL) 0.14 x10^3/uL; BANDS%(MANUAL) 5 % (0-7); BLASTS # (MANUAL) 0.03 x10^3/uL (0-0); LYMPH#(MANUAL) 0.76 x10^3/uL (1-3.4); LYMPHS% (MANUAL) 27 % (22-44); MONOS#(MANUAL) 0.08 x10^3/uL (0.3-2.7); MONOS% (MANUAL) 3 % (2-9); SEG#(MANUAL) 1.79 x10^3/uL (1.8-6.8); SEGS% (MANUAL) 64 % (42-75)
[2020-05-04 06:37] LABS: <PLATELET ESTIMATE> DECREASED; <PLT MORPHOLOGY> NORMAL PLT MORPH; ANISOCYTOSIS 1+; BLASTS % (MANUAL) 1 % (0-0); OVALOCYTES 1+
[2020-05-04] MEDS: ZINC SULFATE 220 MG CAPSULE PO SCH (08:47)
[2020-05-04] MEDS: ASCORBIC ACID 500 MG TABLET PO SCH ×2 (08:47→16:39)
[2020-05-04] MEDS: CHOLECALCIFEROL 5,000u TAB PO SCH (08:48)
[2020-05-04] MEDS: ALLOPURINOL 300 MG TABLET PO SCH (08:48)
[2020-05-04] MEDS: THIAMINE 100MG TABLET PO SCH (08:48)
[2020-05-04] MEDS: VANCOMYCIN 2,000 MG in SODIUM CHLORIDE 0.9% 500 ML IV SCH (09:57)
[2020-05-04] MEDS: VANCOMYCIN 1,700 MG in SODIUM CHLORIDE 0.9% 250 ML IV SCH (17:55)
[2020-05-04 18:13] LABS: CLOSTRIDIUM DIFFICILE ANTIGEN POSITIVE; CLOSTRIDIUM DIFFICILE TOXIN NEGATIVE (Negative)
[2020-05-05] MEDS: VANCOMYCIN 1,700 MG in SODIUM CHLORIDE 0.9% 250 ML IV SCH ×2 (01:28→10:56)
[2020-05-05] MEDS ORDERED: CATHFLO-ALTEPLASE 2 MG/2 ML CATHFLUSH ONE (02:00)
[2020-05-05 02:11] VITALS: BP 118/68
[2020-05-05 07:22] VITALS: BP 131/81
[2020-05-05 07:28] LABS: MEAN CORPUSCULAR HEMOGLOBIN 33.4 pg (27.5-34.5); MEAN CORPUSCULAR HGB CONC 35.7 g/dL (33.2-36.2); MEAN PLATELET VOLUME 8.2 fL (7.4-10.4); RED BLOOD COUNT 2.44 x10^6/uL (4.38-5.82); RED CELL DISTRIBUTION WIDTH 16.5 % (9.4-14.8)
[2020-05-05 07:30] LABS: ALANINE AMINOTRANSFERASE 76 U/L (12-78); ANION GAP 4 mmol/L (5-15); CALCIUM 8.1 mg/dL (8.5-10.1); CHLORIDE 106 mmol/L (98-107); CREATININE 0.63 mg/dL (0.7-1.3)
[2020-05-05 07:33] LABS: ALKALINE PHOSPHATASE 112 U/L (45-117); BILIRUBIN,TOTAL 0.5 mg/dL (0.2-1.0); TOTAL PROTEIN 6.4 g/dL (6.4-8.2)
[2020-05-05] MEDS: CEFEPIME 2 GM in DEXTROSE 5% 100 ML IV SCH ×2 (08:00→17:09)
[2020-05-05 08:06] LABS: PLATELET COUNT 12 x10^3/uL (130-400)
[2020-05-05 08:07] LABS: MD YES
[2020-05-05 08:08] LABS: BAND#(MANUAL) 0.06 x10^3/uL; BANDS%(MANUAL) 2 % (0-7); LYMPHS% (MANUAL) 32 % (22-44); MONOS#(MANUAL) 0.06 x10^3/uL (0.3-2.7); MONOS% (MANUAL) 2 % (2-9); SEG#(MANUAL) 1.68 x10^3/uL (1.8-6.8); SEGS% (MANUAL) 60 % (42-75)
[2020-05-05 08:09] LABS: BLASTS # (MANUAL) 0.08 x10^3/uL (0-0); BLASTS % (MANUAL) 3 % (0-0); REACTIVE LYMPHS # (MANUAL) 0.03 x10^3/uL (0-0); REACTIVE LYMPHS % (MANUAL) 1 % (0-0)
[2020-05-05 08:10] LABS: <PLATELET ESTIMATE> DECREASED; <PLT MORPHOLOGY> NORMAL PLT MORPH; ANISOCYTOSIS 1+; OVALOCYTES 1+
[2020-05-05] MEDS: ZINC SULFATE 220 MG CAPSULE PO SCH (09:08)
[2020-05-05] MEDS: CHOLECALCIFEROL 5,000u TAB PO SCH (09:08)
[2020-05-05] MEDS: ALLOPURINOL 300 MG TABLET PO SCH (09:08)
[2020-05-05] MEDS: THIAMINE 100MG TABLET PO SCH (09:09)
[2020-05-05] MEDS: ASCORBIC ACID 500 MG TABLET PO SCH ×2 (09:09→17:09)
[2020-05-05 12:53] VITALS: BP 131/77
[2020-05-05] MEDS: VANCOMYCIN 2,000 MG in SODIUM CHLORIDE 0.9% 500 ML IV SCH (20:09)
[2020-05-05 20:12] VITALS: BP 111/68
[2020-05-05] MEDS: ACETAMINOPHEN 325 MG TABLET PO PRN (20:30)
[2020-05-06] VITALS (7 sets, daily range): BP systolic 98–123; BP diastolic 53–78
[2020-05-06] MEDS: CEFEPIME 2 GM in DEXTROSE 5% 100 ML IV SCH ×3 (00:41→16:51)
[2020-05-06] MEDS: VANCOMYCIN 2,000 MG in SODIUM CHLORIDE 0.9% 500 ML IV SCH ×2 (04:14→06:00)
[2020-05-06 06:42] LABS: MEAN CORPUSCULAR HEMOGLOBIN 33.4 pg (27.5-34.5); MEAN CORPUSCULAR HGB CONC 35.3 g/dL (33.2-36.2); MEAN PLATELET VOLUME 8.1 fL (7.4-10.4); RED BLOOD COUNT 2.31 x10^6/uL (4.38-5.82); RED CELL DISTRIBUTION WIDTH 16.5 % (9.4-14.8)
[2020-05-06 06:47] LABS: ANION GAP 5 mmol/L (5-15); CALCIUM 8.3 mg/dL (8.5-10.1); CHLORIDE 104 mmol/L (98-107)
[2020-05-06 06:49] LABS: PLATELET COUNT 9 x10^3/uL (130-400)
[2020-05-06 06:50] LABS: ALANINE AMINOTRANSFERASE 100 U/L (12-78); ALKALINE PHOSPHATASE 119 U/L (45-117); BILIRUBIN,TOTAL 0.7 mg/dL (0.2-1.0); CREATININE 0.62 mg/dL (0.7-1.3); TOTAL PROTEIN 6.6 g/dL (6.4-8.2)
[2020-05-06 07:23] LABS: MD YES
[2020-05-06 07:26] LABS: <PLATELET ESTIMATE> DECREASED; <PLT MORPHOLOGY> NORMAL PLT MORPH; ANISOCYTOSIS 1+; BLASTS # (MANUAL) 0.05 x10^3/uL (0-0); LYMPH#(MANUAL) 0.89 x10^3/uL (1-3.4); LYMPHS% (MANUAL) 33 % (22-44); MONOS#(MANUAL) 0.16 x10^3/uL (0.3-2.7); MONOS% (MANUAL) 6 % (2-9); OVALOCYTES 1+; SEG#(MANUAL) 1.59 x10^3/uL (1.8-6.8); SEGS% (MANUAL) 59 % (42-75)
[2020-05-06 07:30] LABS: BLASTS % (MANUAL) 2 % (0-0)
[2020-05-06] MEDS: ZINC SULFATE 220 MG CAPSULE PO SCH (09:01)
[2020-05-06] MEDS: ASCORBIC ACID 500 MG TABLET PO SCH ×2 (09:01→16:51)
[2020-05-06] MEDS: ALLOPURINOL 300 MG TABLET PO SCH (09:01)
[2020-05-06] MEDS: THIAMINE 100MG TABLET PO SCH (09:01)
[2020-05-06] MEDS: CHOLECALCIFEROL 5,000u TAB PO SCH (09:01)
[2020-05-06 17:20] LABS: MICROSCOPIC NOT IND
[2020-05-06] MEDS: ACETAMINOPHEN 325 MG TABLET PO PRN (18:13)
[2020-05-07] MEDS: CEFEPIME 2 GM in DEXTROSE 5% 100 ML IV SCH ×2 (00:27→10:09)
[2020-05-07 00:29] VITALS: BP 100/58
[2020-05-07] MEDS: ACETAMINOPHEN 325 MG TABLET PO PRN (03:36)
[2020-05-07 04:09] LABS: MEAN CORPUSCULAR HGB CONC 34.8 g/dL (33.2-36.2); MEAN PLATELET VOLUME 8.1 fL (7.4-10.4); RED BLOOD COUNT 2.29 x10^6/uL (4.38-5.82); RED CELL DISTRIBUTION WIDTH 16.3 % (9.4-14.8)
[2020-05-07 04:17] LABS: CHLORIDE 104 mmol/L (98-107); PLATELET COUNT 27 x10^3/uL (130-400)
[2020-05-07 04:21] LABS: ALBUMIN 2.1 g/dL (3.4-5.0); ANION GAP 5 mmol/L (5-15); CALCIUM 8.2 mg/dL (8.5-10.1)
[2020-05-07 04:25] LABS: ALANINE AMINOTRANSFERASE 100 U/L (12-78); ALKALINE PHOSPHATASE 126 U/L (45-117); BILIRUBIN,TOTAL 0.4 mg/dL (0.2-1.0); CREATININE 0.66 mg/dL (0.7-1.3); TOTAL PROTEIN 6.7 g/dL (6.4-8.2)
[2020-05-07 04:46] LABS: MD YES
[2020-05-07 04:58] LABS: BAND#(MANUAL) 0.05 x10^3/uL; BANDS%(MANUAL) 2 % (0-7); BLASTS # (MANUAL) 0.12 x10^3/uL (0-0); LYMPH#(MANUAL) 0.69 x10^3/uL (1-3.4); LYMPHS% (MANUAL) 30 % (22-44); MONOS#(MANUAL) 0.09 x10^3/uL (0.3-2.7); MONOS% (MANUAL) 4 % (2-9); MYELOCYTES# (MANUAL) 0.02 x10^3/uL (0-0); MYELOCYTES% (MANUAL) 1 % (0-0); SEG#(MANUAL) 1.33 x10^3/uL (1.8-6.8); SEGS% (MANUAL) 58 % (42-75)
[2020-05-07 05:01] LABS: <PLATELET ESTIMATE> DECREASED; ANISOCYTOSIS 1+; BLASTS % (MANUAL) 5 % (0-0); OVALOCYTES 1+
[2020-05-07 05:02] LABS: <PLT MORPHOLOGY> NORMAL PLT MORPH
[2020-05-07 06:33] VITALS: BP 122/69
[2020-05-07] MEDS: THIAMINE 100MG TABLET PO SCH (09:00)
[2020-05-07] MEDS: ONDANSETRON IVPB SCH (10:07)
[2020-05-07] MEDS: DEXAMETHASONE IVPB SCH (10:07)
[2020-05-07] MEDS: ZINC SULFATE 220 MG CAPSULE PO SCH (10:07)
[2020-05-07] MEDS: SODIUM CHLORIDE 0.9% IVPB SCH (10:07)
[2020-05-07] MEDS: ASCORBIC ACID 500 MG TABLET PO SCH ×2 (10:07→16:47)
[2020-05-07] MEDS: ALLOPURINOL 300 MG TABLET PO SCH (10:08)
[2020-05-07] MEDS: CHOLECALCIFEROL 5,000u TAB PO SCH (10:08)
[2020-05-07] MEDS: SODIUM CHLORIDE 0.9% IV SCH ×2 (11:34→11:56)
[2020-05-07] MEDS: IDARUBICIN IV SCH (11:34)
[2020-05-07] MEDS: VANCOMYCIN 50 MG/ML ORAL SUSP PO SCH ×2 (11:45→16:47)
[2020-05-07] MEDS: PIPERACILLIN/TAZO/PMX 3.375GM 50 ML IV SCH ×2 (11:46→20:02)
[2020-05-07] MEDS: CYTARABINE IV SCH (11:56)
[2020-05-07 15:27] VITALS: BP 112/69
[2020-05-07 20:08] VITALS: BP 110/65
[2020-05-08] VITALS (8 sets, daily range): BP systolic 108–128; BP diastolic 66–74
[2020-05-08] MEDS: VANCOMYCIN 50 MG/ML ORAL SUSP PO SCH ×5 (00:10→23:35)
[2020-05-08] MEDS: PIPERACILLIN/TAZO/PMX 3.375GM 50 ML IV SCH ×3 (03:50→20:59)
[2020-05-08 06:08] LABS: MEAN CORPUSCULAR HEMOGLOBIN 32.8 pg (27.5-34.5); MEAN CORPUSCULAR HGB CONC 34.7 g/dL (33.2-36.2); MEAN PLATELET VOLUME 8.1 fL (7.4-10.4); RED BLOOD COUNT 2.03 x10^6/uL (4.38-5.82); RED CELL DISTRIBUTION WIDTH 16.6 % (9.4-14.8)
[2020-05-08 06:09] LABS: ANION GAP 5 mmol/L (5-15); CALCIUM 8.4 mg/dL (8.5-10.1); CHLORIDE 108 mmol/L (98-107)
[2020-05-08 06:12] LABS: ALANINE AMINOTRANSFERASE 72 U/L (12-78); ALKALINE PHOSPHATASE 115 U/L (45-117); BILIRUBIN,TOTAL 0.5 mg/dL (0.2-1.0); CREATININE 0.57 mg/dL (0.7-1.3); TOTAL PROTEIN 6.6 g/dL (6.4-8.2)
[2020-05-08 06:19] LABS: PLATELET COUNT 17 x10^3/uL (130-400)
[2020-05-08 06:46] LABS: MD YES
[2020-05-08 06:58] LABS: BAND#(MANUAL) 0.05 x10^3/uL; BANDS%(MANUAL) 4 % (0-7); BLASTS # (MANUAL) 0.04 x10^3/uL (0-0); METAMYELOCYTES# (MANUAL) 0.02 x10^3/uL (0-0); METAMYELOCYTES% (MANUAL) 2 % (0-1); MONOS#(MANUAL) 0.01 x10^3/uL (0.3-2.7); MONOS% (MANUAL) 1 % (2-9)
[2020-05-08 06:59] LABS: SEG#(MANUAL) 0.58 x10^3/uL (1.8-6.8); SEGS% (MANUAL) 48 % (42-75)
[2020-05-08 07:00] LABS: LYMPHS% (MANUAL) 42 % (22-44)
[2020-05-08 07:05] LABS: ANISOCYTOSIS 1+; BLASTS % (MANUAL) 3 % (0-0); OVALOCYTES 1+
[2020-05-08 07:06] LABS: <PLATELET ESTIMATE> DECREASED; <PLT MORPHOLOGY> NORMAL PLT MORPH
[2020-05-08] MEDS: ASCORBIC ACID 500 MG TABLET PO SCH ×2 (09:51→16:05)
[2020-05-08] MEDS: THIAMINE 100MG TABLET PO SCH (09:51)
[2020-05-08] MEDS: ALLOPURINOL 300 MG TABLET PO SCH (09:51)
[2020-05-08] MEDS: CHOLECALCIFEROL 5,000u TAB PO SCH (09:51)
[2020-05-08] MEDS: ZINC SULFATE 220 MG CAPSULE PO SCH (09:51)
[2020-05-08] MEDS: DEXAMETHASONE IVPB SCH (12:00)
[2020-05-08] MEDS: SODIUM CHLORIDE 0.9% IVPB SCH (12:00)
[2020-05-08] MEDS: ONDANSETRON IVPB SCH (12:00)
[2020-05-08 14:37] LABS: INTERNATIONAL NORMALIZED RATIO 1.14 (0.93-1.1); PROTHROMBIN TIME 12.1 Seconds (9.6-11.5)
[2020-05-08] MEDS: CYTARABINE IV SCH (14:52)
[2020-05-08] MEDS: IDARUBICIN IV SCH (14:52)
[2020-05-08] MEDS: SODIUM CHLORIDE 0.9% IV SCH ×2 (14:52)
[2020-05-09 03:17] VITALS: BP 118/74
[2020-05-09] MEDS: PIPERACILLIN/TAZO/PMX 3.375GM 50 ML IV SCH ×3 (04:33→20:09)
[2020-05-09] MEDS: OXYcodone IR 5MG TABLET PO PRN ×2 (04:54→08:50)
[2020-05-09 05:02] LABS: MEAN CORPUSCULAR HGB CONC 35.5 g/dL (33.2-36.2); MEAN PLATELET VOLUME 8.1 fL (7.4-10.4); RED BLOOD COUNT 2.44 x10^6/uL (4.38-5.82)
[2020-05-09 05:07] LABS: PLATELET COUNT 16 x10^3/uL (130-400)
[2020-05-09 05:12] LABS: ALBUMIN 2.2 g/dL (3.4-5.0); ANION GAP 4 mmol/L (5-15); CALCIUM 8.5 mg/dL (8.5-10.1); CHLORIDE 107 mmol/L (98-107)
[2020-05-09 05:16] LABS: ALANINE AMINOTRANSFERASE 58 U/L (12-78); ALKALINE PHOSPHATASE 109 U/L (45-117); BILIRUBIN,TOTAL 0.3 mg/dL (0.2-1.0); CREATININE 0.62 mg/dL (0.7-1.3); TOTAL PROTEIN 6.8 g/dL (6.4-8.2)
[2020-05-09 06:00] LABS: MD YES
[2020-05-09 06:12] LABS: LYMPH#(MANUAL) 0.71 x10^3/uL (1-3.4); LYMPHS% (MANUAL) 71 % (22-44); METAMYELOCYTES# (MANUAL) 0.02 x10^3/uL (0-0); METAMYELOCYTES% (MANUAL) 2 % (0-1); SEG#(MANUAL) 0.26 x10^3/uL (1.8-6.8); SEGS% (MANUAL) 26 % (42-75)
[2020-05-09 06:13] LABS: BLASTS # (MANUAL) 0.01 x10^3/uL (0-0)
[2020-05-09 06:14] LABS: ANISOCYTOSIS 1+
[2020-05-09 06:15] LABS: <PLATELET ESTIMATE> DECREASED; <PLT MORPHOLOGY> NORMAL PLT MORPH; OVALOCYTES 1+
[2020-05-09 06:22] LABS: BLASTS % (MANUAL) 1 % (0-0)
[2020-05-09] MEDS: VANCOMYCIN 50 MG/ML ORAL SUSP PO SCH ×3 (06:47→17:21)
[2020-05-09 08:03] VITALS: BP 110/71
[2020-05-09] MEDS: ASCORBIC ACID 500 MG TABLET PO SCH ×2 (08:49→17:21)
[2020-05-09] MEDS: ONDANSETRON 2MG/ML, 2ML IVPush PRN (08:50)
[2020-05-09] MEDS: ALLOPURINOL 300 MG TABLET PO SCH (08:50)
[2020-05-09] MEDS: ZINC SULFATE 220 MG CAPSULE PO SCH (08:50)
[2020-05-09] MEDS: CHOLECALCIFEROL 5,000u TAB PO SCH (08:50)
[2020-05-09] MEDS: THIAMINE 100MG TABLET PO SCH (08:50)
[2020-05-09 12:02] VITALS: BP 113/71
[2020-05-09] MEDS: ONDANSETRON IVPB SCH (14:10)
[2020-05-09] MEDS: SODIUM CHLORIDE 0.9% IVPB SCH (14:10)
[2020-05-09] MEDS: DEXAMETHASONE IVPB SCH (14:10)
[2020-05-09] MEDS: IDARUBICIN IV SCH (15:03)
[2020-05-09] MEDS: SODIUM CHLORIDE 0.9% IV SCH ×2 (15:03→15:30)
[2020-05-09] MEDS: CYTARABINE IV SCH (15:30)
[2020-05-09 19:49] VITALS: BP 91/50
[2020-05-10] MEDS: VANCOMYCIN 50 MG/ML ORAL SUSP PO SCH ×5 (00:21→23:25)
[2020-05-10 03:16] VITALS: BP 104/54
[2020-05-10] MEDS: PIPERACILLIN/TAZO/PMX 3.375GM 50 ML IV SCH ×3 (04:03→20:43)
[2020-05-10 05:55] LABS: MEAN CORPUSCULAR HEMOGLOBIN 32.6 pg (27.5-34.5); MEAN CORPUSCULAR HGB CONC 34.8 g/dL (33.2-36.2); MEAN PLATELET VOLUME 8.5 fL (7.4-10.4)
[2020-05-10 06:00] LABS: ALBUMIN 2.3 g/dL (3.4-5.0); ANION GAP 3 mmol/L (5-15); CALCIUM 8.4 mg/dL (8.5-10.1); CHLORIDE 107 mmol/L (98-107)
[2020-05-10 06:03] LABS: ALANINE AMINOTRANSFERASE 58 U/L (12-78); ALKALINE PHOSPHATASE 103 U/L (45-117); BILIRUBIN,TOTAL 0.5 mg/dL (0.2-1.0); CREATININE 0.66 mg/dL (0.7-1.3); TOTAL PROTEIN 6.5 g/dL (6.4-8.2)
[2020-05-10 06:15] LABS: PLATELET COUNT 15 x10^3/uL (130-400)
[2020-05-10 06:30] LABS: MD YES
[2020-05-10 06:35] LABS: BLASTS # (MANUAL) 0.02 x10^3/uL (0-0); LYMPH#(MANUAL) 0.61 x10^3/uL (1-3.4); LYMPHS% (MANUAL) 76 % (22-44); MONOS#(MANUAL) 0.01 x10^3/uL (0.3-2.7); MONOS% (MANUAL) 1 % (2-9); SEG#(MANUAL) 0.17 x10^3/uL (1.8-6.8); SEGS% (MANUAL) 21 % (42-75)
[2020-05-10 06:36] LABS: BLASTS % (MANUAL) 2 % (0-0)
[2020-05-10 06:37] LABS: <PLATELET ESTIMATE> DECREASED; ANISOCYTOSIS 1+; OVALOCYTES 1+
[2020-05-10 06:38] LABS: <PLT MORPHOLOGY> NORMAL PLT MORPH
[2020-05-10 07:54] VITALS: BP 118/74
[2020-05-10] MEDS: ALLOPURINOL 300 MG TABLET PO SCH (08:08)
[2020-05-10] MEDS: THIAMINE 100MG TABLET PO SCH (08:08)
[2020-05-10] MEDS: ZINC SULFATE 220 MG CAPSULE PO SCH (08:08)
[2020-05-10] MEDS: CHOLECALCIFEROL 5,000u TAB PO SCH (08:09)
[2020-05-10] MEDS: ASCORBIC ACID 500 MG TABLET PO SCH ×2 (08:09→17:16)
[2020-05-10] MEDS: OXYcodone IR 5MG TABLET PO PRN (08:12)
[2020-05-10] MEDS: ONDANSETRON IVPB SCH (09:13)
[2020-05-10] MEDS: SODIUM CHLORIDE 0.9% IVPB SCH (09:13)
[2020-05-10] MEDS: DEXAMETHASONE IVPB SCH (09:13)
[2020-05-10] MEDS ORDERED: SODIUM CHLORIDE 0.9% IVPB ONE (09:30)
[2020-05-10] MEDS ORDERED: [UNRECOGNIZED DRUG - OTHER] IVPB ONE (09:30)
[2020-05-10] MEDS ORDERED: FILTER 0.22 MICRON IV ONE (09:30)
[2020-05-10] MEDS ORDERED: ACETAMINOPHEN 325 MG TABLET PO ONE (10:00)
[2020-05-10] MEDS ORDERED: DIPHENHYDRAMINE 50 MG CAPSULE PO ONE (10:00)
[2020-05-10] MEDS ORDERED: methylPREDNISolone SOD SUCC 125 MG/2 ML IV ONE (10:30)
[2020-05-10] MEDS ORDERED: ONDANSETRON 16 MG in SODIUM CHLORIDE 0.9% 50 ML IVPB ONE (14:00)
[2020-05-10] MEDS: CYTARABINE IV SCH (15:57)
[2020-05-10] MEDS: SODIUM CHLORIDE 0.9% IV SCH (15:57)
[2020-05-10 15:58] VITALS: BP 112/66
[2020-05-10 19:13] VITALS: BP 105/54
[2020-05-11 02:34] VITALS: BP 109/62
[2020-05-11] MEDS: PIPERACILLIN/TAZO/PMX 3.375GM 50 ML IV SCH ×3 (04:04→20:41)
[2020-05-11] MEDS: VANCOMYCIN 50 MG/ML ORAL SUSP PO SCH ×4 (06:30→23:29)
[2020-05-11 06:49] LABS: MEAN CORPUSCULAR HEMOGLOBIN 32.5 pg (27.5-34.5); MEAN CORPUSCULAR HGB CONC 34.9 g/dL (33.2-36.2); MEAN PLATELET VOLUME 8.6 fL (7.4-10.4); RED BLOOD COUNT 2.41 x10^6/uL (4.38-5.82); RED CELL DISTRIBUTION WIDTH 15.3 % (9.4-14.8)
[2020-05-11 07:29] LABS: MD YES; PLATELET COUNT 12 x10^3/uL (130-400)
[2020-05-11 07:33] LABS: BAND#(MANUAL) 0.01 x10^3/uL; BANDS%(MANUAL) 1 % (0-7); EOS#(MANUAL) 0.01 x10^3/uL (0.0-0.4); EOS% (MANUAL) 1 % (1-7); LYMPH#(MANUAL) 0.53 x10^3/uL (1-3.4); LYMPHS% (MANUAL) 75 % (22-44); MONOS#(MANUAL) 0.03 x10^3/uL (0.3-2.7); MONOS% (MANUAL) 4 % (2-9); SEG#(MANUAL) 0.13 x10^3/uL (1.8-6.8); SEGS% (MANUAL) 19 % (42-75)
[2020-05-11 07:34] LABS: <PLATELET ESTIMATE> DECREASED; <PLT MORPHOLOGY> NORMAL PLT MORPH; ANISOCYTOSIS 1+; OVALOCYTES 1+
[2020-05-11] MEDS: THIAMINE 100MG TABLET PO SCH (07:41)
[2020-05-11] MEDS: CHOLECALCIFEROL 5,000u TAB PO SCH (07:41)
[2020-05-11] MEDS: ALLOPURINOL 300 MG TABLET PO SCH (07:41)
[2020-05-11] MEDS: ASCORBIC ACID 500 MG TABLET PO SCH ×2 (07:41→16:59)
[2020-05-11] MEDS: ZINC SULFATE 220 MG CAPSULE PO SCH (07:41)
[2020-05-11 07:45] LABS: ALANINE AMINOTRANSFERASE 67 U/L (12-78); ALBUMIN 2.6 g/dL (3.4-5.0); ANION GAP 4 mmol/L (5-15); CALCIUM 8.6 mg/dL (8.5-10.1); CHLORIDE 105 mmol/L (98-107)
[2020-05-11 07:48] LABS: ALKALINE PHOSPHATASE 92 U/L (45-117); BILIRUBIN,TOTAL 0.4 mg/dL (0.2-1.0); CREATININE 0.65 mg/dL (0.7-1.3); TOTAL PROTEIN 6.9 g/dL (6.4-8.2)
[2020-05-11 10:12] VITALS: BP 113/63
[2020-05-11 14:11] VITALS: BP 99/58
[2020-05-11] MEDS ORDERED: VORICONAZOLE 200 MG TABLET PO SCH (16:00)
[2020-05-11] MEDS: ONDANSETRON IVPB SCH (16:33)
[2020-05-11] MEDS: SODIUM CHLORIDE 0.9% IVPB SCH (16:33)
[2020-05-11] MEDS: DEXAMETHASONE IVPB SCH (16:33)
[2020-05-11] MEDS: SODIUM CHLORIDE 0.9% IV SCH (16:55)
[2020-05-11] MEDS: CYTARABINE IV SCH (16:55)
[2020-05-11 20:13] VITALS: BP 111/63
[2020-05-12] VITALS (7 sets, daily range): BP systolic 91–114; BP diastolic 47–68
[2020-05-12 04:47] LABS: MEAN CORPUSCULAR HEMOGLOBIN 32.1 pg (27.5-34.5); MEAN CORPUSCULAR HGB CONC 34.7 g/dL (33.2-36.2); MEAN PLATELET VOLUME 8.8 fL (7.4-10.4); RED BLOOD COUNT 2.38 x10^6/uL (4.38-5.82); RED CELL DISTRIBUTION WIDTH 15.6 % (9.4-14.8)
[2020-05-12 04:53] LABS: PLATELET COUNT 9 x10^3/uL (130-400)
[2020-05-12] MEDS: VANCOMYCIN 50 MG/ML ORAL SUSP PO SCH ×4 (04:54→23:34)
[2020-05-12 04:57] LABS: ALBUMIN 2.7 g/dL (3.4-5.0); CALCIUM 8.9 mg/dL (8.5-10.1); CHLORIDE 104 mmol/L (98-107)
[2020-05-12 05:01] LABS: ALANINE AMINOTRANSFERASE 95 U/L (12-78); ALKALINE PHOSPHATASE 97 U/L (45-117); ANION GAP 6 mmol/L (5-15); BILIRUBIN,TOTAL 0.4 mg/dL (0.2-1.0); CREATININE 0.66 mg/dL (0.7-1.3); TOTAL PROTEIN 6.9 g/dL (6.4-8.2)
[2020-05-12] MEDS ORDERED: VORICONAZOLE 200 MG TABLET PO SCH (05:22)
[2020-05-12] MEDS: PIPERACILLIN/TAZO/PMX 3.375GM 50 ML IV SCH ×3 (05:29→22:38)
[2020-05-12 05:47] LABS: MD YES
[2020-05-12 05:53] LABS: <PLATELET ESTIMATE> DECREASED; <PLT MORPHOLOGY> QNS FOR PLT MORPH; ANISOCYTOSIS 1+; LYMPH#(MANUAL) 0.49 x10^3/uL (1-3.4); LYMPHS% (MANUAL) 82 % (22-44); OVALOCYTES 1+; SEG#(MANUAL) 0.11 x10^3/uL (1.8-6.8); SEGS% (MANUAL) 18 % (42-75)
[2020-05-12] MEDS: ONDANSETRON 2MG/ML, 2ML IVPush PRN (08:11)
[2020-05-12] MEDS: CHOLECALCIFEROL 5,000u TAB PO SCH (09:45)
[2020-05-12] MEDS: ZINC SULFATE 220 MG CAPSULE PO SCH (09:45)
[2020-05-12] MEDS: ASCORBIC ACID 500 MG TABLET PO SCH ×2 (09:45→17:55)
[2020-05-12] MEDS: ALLOPURINOL 300 MG TABLET PO SCH (09:45)
[2020-05-12] MEDS: THIAMINE 100MG TABLET PO SCH (09:46)
[2020-05-12] MEDS ORDERED: VORICONAZOLE 50 MG TABLET PO SCH (16:00)
[2020-05-12] MEDS: ONDANSETRON IVPB SCH (16:44)
[2020-05-12] MEDS: DEXAMETHASONE IVPB SCH (16:44)
[2020-05-12] MEDS: SODIUM CHLORIDE 0.9% IVPB SCH (16:44)
[2020-05-12] MEDS: VORICONAZOLE 50 MG TABLET PO SCH (16:44)
[2020-05-12] MEDS: CYTARABINE IV SCH (17:55)
[2020-05-12] MEDS: SODIUM CHLORIDE 0.9% IV SCH (17:55)
[2020-05-13 01:30] VITALS: BP 94/59
[2020-05-13] MEDS: VORICONAZOLE 50 MG TABLET PO SCH ×2 (04:22→15:49)
[2020-05-13] MEDS: VANCOMYCIN 50 MG/ML ORAL SUSP PO SCH ×3 (05:33→21:06)
[2020-05-13 06:04] LABS: MEAN CORPUSCULAR HEMOGLOBIN 32.6 pg (27.5-34.5); MEAN CORPUSCULAR HGB CONC 35.3 g/dL (33.2-36.2); MEAN PLATELET VOLUME 8.3 fL (7.4-10.4); RED BLOOD COUNT 2.25 x10^6/uL (4.38-5.82); RED CELL DISTRIBUTION WIDTH 15.2 % (9.4-14.8)
[2020-05-13 06:10] LABS: ALBUMIN 2.8 g/dL (3.4-5.0); ANION GAP 5 mmol/L (5-15); CALCIUM 8.8 mg/dL (8.5-10.1); CHLORIDE 104 mmol/L (98-107)
[2020-05-13 06:13] LABS: ALANINE AMINOTRANSFERASE 68 U/L (12-78); ALKALINE PHOSPHATASE 97 U/L (45-117); BILIRUBIN,TOTAL 0.3 mg/dL (0.2-1.0); CREATININE 0.66 mg/dL (0.7-1.3); TOTAL PROTEIN 6.9 g/dL (6.4-8.2)
[2020-05-13 06:23] LABS: PLATELET COUNT 11 x10^3/uL (130-400)
[2020-05-13] MEDS: PIPERACILLIN/TAZO/PMX 3.375GM 50 ML IV SCH ×3 (06:23→22:40)
[2020-05-13 08:10] LABS: MD YES
[2020-05-13 08:31] LABS: SEG#(MANUAL) 0.04 x10^3/uL (1.8-6.8); SEGS% (MANUAL) 7 % (42-75)
[2020-05-13 08:33] LABS: EOS#(MANUAL) 0.01 x10^3/uL (0.0-0.4); EOS% (MANUAL) 1 % (1-7); LYMPH#(MANUAL) 0.46 x10^3/uL (1-3.4); LYMPHS% (MANUAL) 91 % (22-44); MONOS#(MANUAL) 0.01 x10^3/uL (0.3-2.7); MONOS% (MANUAL) 1 % (2-9)
[2020-05-13 08:35] LABS: HYPOCHROMIA 1+; OVALOCYTES 1+
[2020-05-13 08:36] LABS: <PLATELET ESTIMATE> DECREASED; <PLT MORPHOLOGY> QNS FOR PLT MORPH
[2020-05-13] MEDS: CHOLECALCIFEROL 5,000u TAB PO SCH (08:54)
[2020-05-13] MEDS: ZINC SULFATE 220 MG CAPSULE PO SCH (08:54)
[2020-05-13] MEDS: ALLOPURINOL 300 MG TABLET PO SCH (08:55)
[2020-05-13] MEDS: THIAMINE 100MG TABLET PO SCH (08:55)
[2020-05-13] MEDS: ASCORBIC ACID 500 MG TABLET PO SCH ×2 (08:55→15:49)
[2020-05-13 10:18] VITALS: BP 90/48
[2020-05-13 13:11] VITALS: BP 117/62
[2020-05-13] MEDS: ONDANSETRON 2MG/ML, 2ML IVPush PRN (14:05)
[2020-05-13] MEDS: SODIUM CHLORIDE 0.9% IVPB SCH (17:17)
[2020-05-13] MEDS: ONDANSETRON IVPB SCH (17:17)
[2020-05-13] MEDS: DEXAMETHASONE IVPB SCH (17:17)
[2020-05-13] MEDS: CYTARABINE IV SCH (18:19)
[2020-05-13] MEDS: SODIUM CHLORIDE 0.9% IV SCH (18:19)
[2020-05-13 18:53] VITALS: BP 114/59
[2020-05-14] VITALS (7 sets, daily range): BP systolic 93–124; BP diastolic 48–73
[2020-05-14] MEDS: VORICONAZOLE 50 MG TABLET PO SCH ×2 (04:10→16:35)
[2020-05-14] MEDS: ONDANSETRON 2MG/ML, 2ML IVPush PRN ×3 (05:10→23:52)
[2020-05-14 05:42] LABS: MEAN CORPUSCULAR HEMOGLOBIN 32.1 pg (27.5-34.5); MEAN CORPUSCULAR HGB CONC 35.1 g/dL (33.2-36.2); MEAN PLATELET VOLUME 8.5 fL (7.4-10.4); RED CELL DISTRIBUTION WIDTH 15.2 % (9.4-14.8)
[2020-05-14 05:43] LABS: ALBUMIN 2.7 g/dL (3.4-5.0); ANION GAP 4 mmol/L (5-15); CALCIUM 8.4 mg/dL (8.5-10.1); CHLORIDE 105 mmol/L (98-107)
[2020-05-14 05:45] LABS: PLATELET COUNT 7 x10^3/uL (130-400)
[2020-05-14 05:48] LABS: ALANINE AMINOTRANSFERASE 52 U/L (12-78); ALKALINE PHOSPHATASE 90 U/L (45-117); BILIRUBIN,TOTAL 0.2 mg/dL (0.2-1.0); CREATININE 0.55 mg/dL (0.7-1.3); TOTAL PROTEIN 6.6 g/dL (6.4-8.2)
[2020-05-14 06:36] LABS: MD YES
[2020-05-14 06:38] LABS: LYMPH#(MANUAL) 0.36 x10^3/uL (1-3.4); LYMPHS% (MANUAL) 89 % (22-44); SEG#(MANUAL) 0.04 x10^3/uL (1.8-6.8); SEGS% (MANUAL) 11 % (42-75)
[2020-05-14 06:40] LABS: <PLATELET ESTIMATE> DECREASED; <PLT MORPHOLOGY> QNS FOR PLT MORPH; ANISOCYTOSIS 1+; OVALOCYTES 1+
[2020-05-14] MEDS: PIPERACILLIN/TAZO/PMX 3.375GM 50 ML IV SCH ×3 (07:12→22:42)
[2020-05-14] MEDS: ZINC SULFATE 220 MG CAPSULE PO SCH (08:10)
[2020-05-14] MEDS: THIAMINE 100MG TABLET PO SCH (08:11)
[2020-05-14] MEDS: ASCORBIC ACID 500 MG TABLET PO SCH ×2 (08:11→16:36)
[2020-05-14] MEDS: ALLOPURINOL 300 MG TABLET PO SCH (08:11)
[2020-05-14] MEDS: CHOLECALCIFEROL 5,000u TAB PO SCH (08:11)
[2020-05-14] MEDS: VANCOMYCIN 50 MG/ML ORAL SUSP PO SCH ×2 (08:13→22:42)
[2020-05-14] MEDS: CALCIUM CARBONATE 500 MG TAB.CHEW PO PRN ×3 (10:19→22:41)
[2020-05-14] MEDS ORDERED: METOCLOPRAMIDE 5 MG/ML, 2ML ONE (14:19)
[2020-05-14] MEDS: METOCLOPRAMIDE 5 MG/ML, 2ML IVPush PRN (14:25)
[2020-05-14] MEDS: PROMETHAZINE 25MG TABLET PO PRN (21:32)
[2020-05-14] MEDS: OXYcodone IR 5MG TABLET PO PRN (23:57)
[2020-05-15 00:32] VITALS: BP 122/72
[2020-05-15] MEDS ORDERED: PROMETHAZINE 25 MG/ML, 1ML IM PRN (01:00)
[2020-05-15] MEDS: SODIUM CHLORIDE 0.9% 1,000 ML IV SCH ×2 (01:00→13:08)
[2020-05-15] MEDS: VORICONAZOLE 50 MG TABLET PO SCH ×2 (04:43→16:49)
[2020-05-15 05:46] LABS: MEAN CORPUSCULAR HEMOGLOBIN 32.2 pg (27.5-34.5); MEAN CORPUSCULAR HGB CONC 35.4 g/dL (33.2-36.2); MEAN PLATELET VOLUME 7.8 fL (7.4-10.4); RED BLOOD COUNT 2.18 x10^6/uL (4.38-5.82); RED CELL DISTRIBUTION WIDTH 14.8 % (9.4-14.8)
[2020-05-15 05:48] LABS: ALBUMIN 2.7 g/dL (3.4-5.0); ANION GAP 5 mmol/L (5-15); CALCIUM 8.6 mg/dL (8.5-10.1); CHLORIDE 102 mmol/L (98-107)
[2020-05-15 05:51] LABS: ALANINE AMINOTRANSFERASE 43 U/L (12-78); ALKALINE PHOSPHATASE 90 U/L (45-117); BILIRUBIN,TOTAL 0.5 mg/dL (0.2-1.0); CREATININE 0.66 mg/dL (0.7-1.3); TOTAL PROTEIN 6.5 g/dL (6.4-8.2)
[2020-05-15 05:57] LABS: PLATELET COUNT 35 x10^3/uL (130-400)
[2020-05-15 06:40] LABS: MD YES
[2020-05-15 06:45] LABS: LYMPH#(MANUAL) 0.36 x10^3/uL (1-3.4); LYMPHS% (MANUAL) 90 % (22-44); MONOS#(MANUAL) 0.01 x10^3/uL (0.3-2.7); MONOS% (MANUAL) 2 % (2-9); REACTIVE LYMPHS % (MANUAL) 1 % (0-0); SEG#(MANUAL) 0.03 x10^3/uL (1.8-6.8); SEGS% (MANUAL) 7 % (42-75)
[2020-05-15 06:50] LABS: <PLATELET ESTIMATE> DECREASED; <PLT MORPHOLOGY> NORMAL PLT MORPH; ANISOCYTOSIS 1+; OVALOCYTES 1+
[2020-05-15] MEDS: PIPERACILLIN/TAZO/PMX 3.375GM 50 ML IV SCH ×4 (07:58→23:37)
[2020-05-15] MEDS: ASCORBIC ACID 500 MG TABLET PO SCH ×2 (08:00→16:49)
[2020-05-15] MEDS: THIAMINE 100MG TABLET PO SCH (09:00)
[2020-05-15] MEDS: ZINC SULFATE 220 MG CAPSULE PO SCH (09:00)
[2020-05-15 09:13] VITALS: BP 112/69
[2020-05-15] MEDS ORDERED: PROCHLORPERAZINE 5 MG/ML, 2ML IV PRN (09:30)
[2020-05-15] MEDS ORDERED: LORazepam 2 MG/ML, 1ML IVPush PRN (09:30)
[2020-05-15] MEDS: ONDANSETRON ODT 4 MG PO PRN ×3 (10:12→20:37)
[2020-05-15] MEDS: VANCOMYCIN 50 MG/ML ORAL SUSP PO SCH ×2 (10:58→20:38)
[2020-05-15] MEDS: PROMETHAZINE 25MG TABLET PO PRN (10:59)
[2020-05-15] MEDS: OXYcodone IR 5MG TABLET PO PRN ×2 (12:58→20:38)
[2020-05-15] MEDS: METOCLOPRAMIDE 5 MG/ML, 2ML IVPush PRN ×2 (13:01→22:31)
[2020-05-15 13:24] VITALS: BP 113/75
[2020-05-15] MEDS: CHOLECALCIFEROL 5,000u TAB PO SCH (16:48)
[2020-05-15 18:10] VITALS: BP 107/73
[2020-05-15] MEDS: MORPHINE SULFATE 4 MG/ML, 1ML IVPush PRN (22:40)
[2020-05-16] VITALS (8 sets, daily range): BP systolic 104–119; BP diastolic 51–75
[2020-05-16] MEDS: SODIUM CHLORIDE 0.9% 1,000 ML IV SCH ×2 (04:25→18:18)
[2020-05-16] MEDS: VORICONAZOLE 50 MG TABLET PO SCH ×2 (04:43→17:13)
[2020-05-16] MEDS: ONDANSETRON 2MG/ML, 2ML IVPush PRN ×4 (04:43→23:12)
[2020-05-16] MEDS: MORPHINE SULFATE 4 MG/ML, 1ML IVPush PRN ×3 (04:44→20:29)
[2020-05-16 04:58] LABS: MEAN CORPUSCULAR HEMOGLOBIN 32.1 pg (27.5-34.5); MEAN CORPUSCULAR HGB CONC 35.2 g/dL (33.2-36.2); MEAN PLATELET VOLUME 7.2 fL (7.4-10.4); RED BLOOD COUNT 2.07 x10^6/uL (4.38-5.82); RED CELL DISTRIBUTION WIDTH 15.1 % (9.4-14.8)
[2020-05-16 05:03] LABS: ALBUMIN 2.2 g/dL (3.4-5.0); ANION GAP 4 mmol/L (5-15); CALCIUM 8.6 mg/dL (8.5-10.1); CHLORIDE 103 mmol/L (98-107)
[2020-05-16 05:06] LABS: ALANINE AMINOTRANSFERASE 26 U/L (12-78); ALKALINE PHOSPHATASE 84 U/L (45-117); BILIRUBIN,TOTAL 0.6 mg/dL (0.2-1.0); CREATININE 0.55 mg/dL (0.7-1.3); TOTAL PROTEIN 5.8 g/dL (6.4-8.2)
[2020-05-16 05:08] LABS: PLATELET COUNT 21 x10^3/uL (130-400)
[2020-05-16 05:52] LABS: MD YES
[2020-05-16 05:57] LABS: LYMPH#(MANUAL) 0.38 x10^3/uL (1-3.4); LYMPHS% (MANUAL) 96 % (22-44); SEG#(MANUAL) 0.02 x10^3/uL (1.8-6.8); SEGS% (MANUAL) 4 % (42-75)
[2020-05-16 05:58] LABS: <PLATELET ESTIMATE> DECREASED; <PLT MORPHOLOGY> NORMAL PLT MORPH; ANISOCYTOSIS 1+
[2020-05-16] MEDS: THIAMINE 100MG TABLET PO SCH (08:08)
[2020-05-16] MEDS: VANCOMYCIN 50 MG/ML ORAL SUSP PO SCH ×2 (08:08→21:10)
[2020-05-16] MEDS: PIPERACILLIN/TAZO/PMX 3.375GM 50 ML IV SCH (08:08)
[2020-05-16] MEDS: ASCORBIC ACID 500 MG TABLET PO SCH ×2 (08:08→16:42)
[2020-05-16] MEDS: CHOLECALCIFEROL 5,000u TAB PO SCH (08:09)
[2020-05-16] MEDS: ZINC SULFATE 220 MG CAPSULE PO SCH (08:09)
[2020-05-16] MEDS: CALCIUM CARBONATE 500 MG TAB.CHEW PO PRN (09:42)
[2020-05-16] MEDS: METOCLOPRAMIDE 5 MG/ML, 2ML IVPush PRN ×2 (12:13→19:58)
[2020-05-16] MEDS: PIPERACILLIN/TAZO/PMX 4.5GM 100 ML IV SCH (16:42)
[2020-05-17] MEDS: PIPERACILLIN/TAZO/PMX 4.5GM 100 ML IV SCH ×3 (00:45→16:45)
[2020-05-17] MEDS: MORPHINE SULFATE 4 MG/ML, 1ML IVPush PRN ×2 (02:53→09:26)
[2020-05-17 03:06] VITALS: BP 111/52
[2020-05-17 03:30] LABS: BASOPHILS % (AUTO) 0 % (0-1); EOSINOPHILS % (AUTO) 2 % (1-7); LYMPHOCYTES % (AUTO) 89 % (22-44); MEAN CORPUSCULAR HEMOGLOBIN 31.4 pg (27.5-34.5); MEAN CORPUSCULAR HGB CONC 35.4 g/dL (33.2-36.2); MEAN PLATELET VOLUME 7.4 fL (7.4-10.4); MONOCYTES % (AUTO) 2 % (2-9); NEUTROPHILS % (AUTO) 7 % (42-75); RED BLOOD COUNT 2.27 x10^6/uL (4.38-5.82); RED CELL DISTRIBUTION WIDTH 15.3 % (9.4-14.8)
[2020-05-17 03:38] LABS: ALANINE AMINOTRANSFERASE 22 U/L (12-78); ALBUMIN 2.1 g/dL (3.4-5.0); ANION GAP 6 mmol/L (5-15); CALCIUM 7.8 mg/dL (8.5-10.1); CHLORIDE 100 mmol/L (98-107); CREATININE 0.48 mg/dL (0.7-1.3)
[2020-05-17 03:40] LABS: ALKALINE PHOSPHATASE 79 U/L (45-117); BILIRUBIN,TOTAL 0.6 mg/dL (0.2-1.0); TOTAL PROTEIN 5.7 g/dL (6.4-8.2)
[2020-05-17 04:37] LABS: MD YES; PLATELET COUNT 14 x10^3/uL (130-400)
[2020-05-17 04:46] LABS: LYMPH#(MANUAL) 0.18 x10^3/uL (1-3.4); LYMPHS% (MANUAL) 88 % (22-44); MONOS% (MANUAL) 2 % (2-9); SEG#(MANUAL) 0.02 x10^3/uL (1.8-6.8); SEGS% (MANUAL) 10 % (42-75)
[2020-05-17 04:48] LABS: ANISOCYTOSIS 1+
[2020-05-17 04:49] LABS: <PLATELET ESTIMATE> DECREASED; <PLT MORPHOLOGY> NORMAL PLT MORPH; OVALOCYTES 1+
[2020-05-17] MEDS: VORICONAZOLE 50 MG TABLET PO SCH ×2 (05:44→16:45)
[2020-05-17 07:28] VITALS: BP 127/73
[2020-05-17] MEDS ORDERED: MAGNESIUM HYDROXIDE 8%, 30ML UDC PO PRN (08:00)
[2020-05-17] MEDS: CALCIUM CARBONATE 500 MG TAB.CHEW PO PRN (08:35)
[2020-05-17] MEDS: PANTOPRAZOLE 40MG TABLET PO SCH (08:35)
[2020-05-17] MEDS: VANCOMYCIN 50 MG/ML ORAL SUSP PO SCH ×2 (08:35→20:42)
[2020-05-17] MEDS: ASCORBIC ACID 500 MG TABLET PO SCH ×2 (08:35→16:44)
[2020-05-17] MEDS: DOCUSATE 100 MG CAPSULE PO PRN (08:35)
[2020-05-17] MEDS: ZINC SULFATE 220 MG CAPSULE PO SCH (08:36)
[2020-05-17] MEDS: THIAMINE 100MG TABLET PO SCH (08:36)
[2020-05-17] MEDS: CHOLECALCIFEROL 5,000u TAB PO SCH (08:36)
[2020-05-17] MEDS: SODIUM CHLORIDE 0.9% 1,000 ML IV SCH ×2 (08:36→23:22)
[2020-05-17] MEDS: ONDANSETRON 2MG/ML, 2ML IVPush PRN ×4 (08:54→20:41)
[2020-05-17] MEDS: OXYcodone IR 5MG TABLET PO PRN (13:20)
[2020-05-17 13:34] VITALS: BP 121/69
[2020-05-17 20:14] VITALS: BP 129/64
[2020-05-18] VITALS (13 sets, daily range): BP systolic 92–116; BP diastolic 41–76
[2020-05-18] MEDS: ONDANSETRON 2MG/ML, 2ML IVPush PRN ×6 (00:37→23:03)
[2020-05-18] MEDS: PIPERACILLIN/TAZO/PMX 4.5GM 100 ML IV SCH ×3 (00:37→16:31)
[2020-05-18] MEDS: VORICONAZOLE 50 MG TABLET PO SCH (04:37)
[2020-05-18 05:07] LABS: MEAN CORPUSCULAR HEMOGLOBIN 31.7 pg (27.5-34.5); MEAN CORPUSCULAR HGB CONC 35.9 g/dL (33.2-36.2); MEAN PLATELET VOLUME 7.7 fL (7.4-10.4); RED BLOOD COUNT 1.83 x10^6/uL (4.38-5.82)
[2020-05-18 05:13] LABS: PLATELET COUNT 8 x10^3/uL (130-400)
[2020-05-18 05:19] LABS: ALBUMIN 2.1 g/dL (3.4-5.0); ANION GAP 3 mmol/L (5-15); CHLORIDE 107 mmol/L (98-107)
[2020-05-18 05:23] LABS: ALANINE AMINOTRANSFERASE 17 U/L (12-78); ALKALINE PHOSPHATASE 73 U/L (45-117); BILIRUBIN,TOTAL 0.4 mg/dL (0.2-1.0); CREATININE 0.48 mg/dL (0.7-1.3); TOTAL PROTEIN 5.5 g/dL (6.4-8.2)
[2020-05-18 05:58] LABS: MD YES
[2020-05-18 06:05] LABS: <PLATELET ESTIMATE> DECREASED; <PLT MORPHOLOGY> NORMAL PLT MORPH; ANISOCYTOSIS 1+; LYMPHS% (MANUAL) 99 % (22-44); REACTIVE LYMPHS # (MANUAL) 0.01 x10^3/uL (0-0); REACTIVE LYMPHS % (MANUAL) 1 % (0-0)
[2020-05-18] MEDS: PANTOPRAZOLE 40MG TABLET PO SCH (06:29)
[2020-05-18] MEDS: CHOLECALCIFEROL 5,000u TAB PO SCH (08:11)
[2020-05-18] MEDS: ASCORBIC ACID 500 MG TABLET PO SCH ×2 (08:11→16:31)
[2020-05-18] MEDS: ZINC SULFATE 220 MG CAPSULE PO SCH (08:11)
[2020-05-18] MEDS: THIAMINE 100MG TABLET PO SCH (08:12)
[2020-05-18] MEDS: VANCOMYCIN 50 MG/ML ORAL SUSP PO SCH (08:42)
[2020-05-18] MEDS: OXYcodone IR 5MG TABLET PO PRN (09:30)
[2020-05-18] MEDS: SODIUM CHLORIDE 0.9% 1,000 ML IV SCH (12:30)
[2020-05-18] MEDS: VORICONAZOLE 200 MG TABLET PO SCH (16:31)
[2020-05-19 00:22] VITALS: BP 99/57
[2020-05-19] MEDS: PIPERACILLIN/TAZO/PMX 4.5GM 100 ML IV SCH ×3 (00:27→16:32)
[2020-05-19] MEDS: SODIUM CHLORIDE 0.9% 1,000 ML IV SCH ×3 (00:30→20:32)
[2020-05-19] MEDS: ONDANSETRON 2MG/ML, 2ML IVPush PRN ×4 (02:54→20:30)
[2020-05-19] MEDS: VORICONAZOLE 200 MG TABLET PO SCH ×2 (04:02→16:33)
[2020-05-19] MEDS: PANTOPRAZOLE 40MG TABLET PO SCH (05:50)
[2020-05-19 06:19] LABS: MEAN CORPUSCULAR HEMOGLOBIN 31.2 pg (27.5-34.5); MEAN CORPUSCULAR HGB CONC 35.7 g/dL (33.2-36.2); MEAN PLATELET VOLUME 8.1 fL (7.4-10.4); RED BLOOD COUNT 2.48 x10^6/uL (4.38-5.82)
[2020-05-19 06:24] LABS: ALANINE AMINOTRANSFERASE 19 U/L (12-78); ALBUMIN 2.1 g/dL (3.4-5.0); ANION GAP 4 mmol/L (5-15); CALCIUM 8.1 mg/dL (8.5-10.1); CHLORIDE 108 mmol/L (98-107)
[2020-05-19 06:26] LABS: ALKALINE PHOSPHATASE 77 U/L (45-117); BILIRUBIN,TOTAL 0.4 mg/dL (0.2-1.0); TOTAL PROTEIN 5.7 g/dL (6.4-8.2)
[2020-05-19 06:27] LABS: PLATELET COUNT 32 x10^3/uL (130-400)
[2020-05-19 06:49] VITALS: BP 93/51
[2020-05-19 07:36] LABS: MD YES
[2020-05-19 07:40] LABS: LYMPHS% (MANUAL) 100 % (22-44)
[2020-05-19 07:43] LABS: <PLATELET ESTIMATE> DECREASED; <PLT MORPHOLOGY> NORMAL PLT MORPH
[2020-05-19 07:44] LABS: ANISOCYTOSIS 1+
[2020-05-19] MEDS: ASCORBIC ACID 500 MG TABLET PO SCH ×2 (08:00→16:33)
[2020-05-19] MEDS: ZINC SULFATE 220 MG CAPSULE PO SCH (08:22)
[2020-05-19] MEDS: CHOLECALCIFEROL 5,000u TAB PO SCH (08:23)
[2020-05-19] MEDS: THIAMINE 100MG TABLET PO SCH (08:23)
[2020-05-19] MEDS: DOCUSATE 100 MG CAPSULE PO PRN (16:33)
[2020-05-19 19:20] VITALS: BP 102/66
[2020-05-20] MEDS: PIPERACILLIN/TAZO/PMX 4.5GM 100 ML IV SCH ×3 (00:06→16:18)
[2020-05-20] MEDS: ONDANSETRON 2MG/ML, 2ML IVPush PRN ×4 (00:39→16:18)
[2020-05-20 00:41] VITALS: BP 122/64
[2020-05-20] MEDS: VORICONAZOLE 200 MG TABLET PO SCH ×2 (03:43→16:18)
[2020-05-20] MEDS: PANTOPRAZOLE 40MG TABLET PO SCH (05:15)
[2020-05-20] MEDS: CATHFLO-ALTEPLASE 2 MG/2 ML CATHFLUSH ONE ×2 (06:00→10:59)
[2020-05-20 06:04] LABS: MEAN CORPUSCULAR HEMOGLOBIN 31.8 pg (27.5-34.5); MEAN CORPUSCULAR HGB CONC 35.8 g/dL (33.2-36.2); MEAN PLATELET VOLUME 7.4 fL (7.4-10.4); RED BLOOD COUNT 2.48 x10^6/uL (4.38-5.82)
[2020-05-20 06:19] LABS: MD YES; PLATELET COUNT 22 x10^3/uL (130-400)
[2020-05-20 06:20] LABS: CHLORIDE 110 mmol/L (98-107)
[2020-05-20 06:28] LABS: ALANINE AMINOTRANSFERASE 29 U/L (12-78); ALBUMIN 2.3 g/dL (3.4-5.0); ALKALINE PHOSPHATASE 89 U/L (45-117); ANION GAP 6 mmol/L (5-15); BILIRUBIN,TOTAL 0.3 mg/dL (0.2-1.0); CALCIUM 8.4 mg/dL (8.5-10.1); CREATININE 0.55 mg/dL (0.7-1.3); TOTAL PROTEIN 6.2 g/dL (6.4-8.2)
[2020-05-20 06:40] LABS: LYMPHS% (MANUAL) 100 % (22-44)
[2020-05-20 06:45] LABS: <RBC MORPHOLOGY> NORMAL
[2020-05-20 06:46] LABS: <PLATELET ESTIMATE> DECREASED; <PLT MORPHOLOGY> NORMAL PLT MORPH
[2020-05-20 07:07] VITALS: BP 116/73
[2020-05-20] MEDS: THIAMINE 100MG TABLET PO SCH (07:51)
[2020-05-20] MEDS: CHOLECALCIFEROL 5,000u TAB PO SCH (07:51)
[2020-05-20] MEDS: ASCORBIC ACID 500 MG TABLET PO SCH ×2 (07:51→16:18)
[2020-05-20] MEDS: ZINC SULFATE 220 MG CAPSULE PO SCH (07:52)
[2020-05-20] MEDS ORDERED: FENTANYL PF 100 MCG/2ML ONE (08:46)
[2020-05-20] MEDS ORDERED: FLUMAZENIL 0.1 MG/1 ML, 5ML ONE (08:46)
[2020-05-20] MEDS ORDERED: MIDAZOLAM 1 MG/ML, 5ML ONE (08:46)
[2020-05-20] MEDS ORDERED: NALOXONE 1 MG/ML, 2ML ONE (08:47)
[2020-05-20] MEDS: SODIUM CHLORIDE 0.9% 1,000 ML IV SCH (10:48)
[2020-05-20 12:27] VITALS: BP 121/80
[2020-05-20] MEDS: OXYcodone IR 5MG TABLET PO PRN (16:29)
[2020-05-20 19:17] VITALS: BP 123/77
[2020-05-20] MEDS: MORPHINE SULFATE 4 MG/ML, 1ML IVPush PRN (20:38)
[2020-05-21] MEDS: OXYcodone IR 5MG TABLET PO PRN ×4 (00:15→21:30)
[2020-05-21] MEDS: PIPERACILLIN/TAZO/PMX 4.5GM 100 ML IV SCH ×3 (00:16→16:04)
[2020-05-21 00:19] VITALS: BP 123/71
[2020-05-21] MEDS: SODIUM CHLORIDE 0.9% 1,000 ML IV SCH ×2 (01:08→17:06)
[2020-05-21] MEDS: VORICONAZOLE 200 MG TABLET PO SCH ×2 (03:33→16:05)
[2020-05-21] MEDS: MORPHINE SULFATE 4 MG/ML, 1ML IVPush PRN (03:34)
[2020-05-21 03:50] LABS: ALBUMIN 2.3 g/dL (3.4-5.0); ANION GAP 4 mmol/L (5-15); CALCIUM 8.3 mg/dL (8.5-10.1); CHLORIDE 109 mmol/L (98-107)
[2020-05-21 03:52] LABS: MEAN CORPUSCULAR HEMOGLOBIN 31.5 pg (27.5-34.5)
[2020-05-21 03:53] LABS: ALANINE AMINOTRANSFERASE 35 U/L (12-78); ALKALINE PHOSPHATASE 88 U/L (45-117); BILIRUBIN,TOTAL 0.3 mg/dL (0.2-1.0); CREATININE 0.65 mg/dL (0.7-1.3)
[2020-05-21 03:56] LABS: MEAN CORPUSCULAR HGB CONC 35.7 g/dL (33.2-36.2); MEAN PLATELET VOLUME 7.6 fL (7.4-10.4); RED BLOOD COUNT 2.34 x10^6/uL (4.38-5.82)
[2020-05-21 05:40] LABS: MD YES
[2020-05-21 05:47] LABS: PLATELET COUNT 15 x10^3/uL (130-400)
[2020-05-21 05:48] LABS: <PLATELET ESTIMATE> DECREASED; <PLT MORPHOLOGY> NORMAL PLT MORPH; <RBC MORPHOLOGY> NORMAL; LYMPH#(MANUAL) 0.69 x10^3/uL (1-3.4); LYMPHS% (MANUAL) 99 % (22-44); SEG#(MANUAL) 0.01 x10^3/uL (1.8-6.8); SEGS% (MANUAL) 1 % (42-75)
[2020-05-21] MEDS: ONDANSETRON 2MG/ML, 2ML IVPush PRN ×2 (06:41→18:27)
[2020-05-21] MEDS: PANTOPRAZOLE 40MG TABLET PO SCH (06:41)
[2020-05-21 07:00] VITALS: BP 99/61
[2020-05-21] MEDS: CHOLECALCIFEROL 5,000u TAB PO SCH (07:51)
[2020-05-21] MEDS: ASCORBIC ACID 500 MG TABLET PO SCH ×2 (07:51→16:04)
[2020-05-21] MEDS: THIAMINE 100MG TABLET PO SCH (07:52)
[2020-05-21] MEDS: ZINC SULFATE 220 MG CAPSULE PO SCH (07:52)
[2020-05-21] MEDS: ONDANSETRON ODT 4 MG PO PRN (12:31)
[2020-05-21 13:00] VITALS: BP 115/70
[2020-05-21 21:30] VITALS: BP 112/55
[2020-05-22] MEDS: PIPERACILLIN/TAZO/PMX 4.5GM 100 ML IV SCH ×3 (00:04→16:33)
[2020-05-22] MEDS: OXYcodone IR 5MG TABLET PO PRN (04:27)
[2020-05-22] MEDS: ONDANSETRON ODT 4 MG PO PRN (04:27)
[2020-05-22] MEDS: VORICONAZOLE 200 MG TABLET PO SCH ×2 (04:27→16:33)
[2020-05-22] MEDS: PANTOPRAZOLE 40MG TABLET PO SCH (04:27)
[2020-05-22 04:50] LABS: MEAN CORPUSCULAR HEMOGLOBIN 31.4 pg (27.5-34.5); MEAN CORPUSCULAR HGB CONC 35.7 g/dL (33.2-36.2); MEAN PLATELET VOLUME 7.6 fL (7.4-10.4); RED BLOOD COUNT 2.27 x10^6/uL (4.38-5.82); RED CELL DISTRIBUTION WIDTH 13.8 % (9.4-14.8)
[2020-05-22 04:59] LABS: ALBUMIN 2.4 g/dL (3.4-5.0); ANION GAP 7 mmol/L (5-15); CALCIUM 8.7 mg/dL (8.5-10.1); CHLORIDE 108 mmol/L (98-107)
[2020-05-22 05:03] LABS: ALANINE AMINOTRANSFERASE 43 U/L (12-78); ALKALINE PHOSPHATASE 99 U/L (45-117); BILIRUBIN,TOTAL 0.5 mg/dL (0.2-1.0); TOTAL PROTEIN 6.2 g/dL (6.4-8.2)
[2020-05-22 05:53] LABS: MD YES; PLATELET COUNT 10 x10^3/uL (130-400)
[2020-05-22 05:54] LABS: <PLATELET ESTIMATE> DECREASED; <PLT MORPHOLOGY> QNS FOR PLT MORPH; <RBC MORPHOLOGY> NORMAL; LYMPH#(MANUAL) 0.69 x10^3/uL (1-3.4); LYMPHS% (MANUAL) 99 % (22-44); SEG#(MANUAL) 0.01 x10^3/uL (1.8-6.8); SEGS% (MANUAL) 1 % (42-75)
[2020-05-22] MEDS ORDERED: POTASSIUM CHLORIDE 20 MEQ TAB.ER.PRT PO ONE (07:30)
[2020-05-22] MEDS: THIAMINE 100MG TABLET PO SCH (08:23)
[2020-05-22 08:29] VITALS: BP 124/75
[2020-05-22 11:52] VITALS: BP 108/55
[2020-05-22 11:54] VITALS: BP 108/55
[2020-05-22 12:11] VITALS: BP 124/66
[2020-05-22 13:14] VITALS: BP 102/48
[2020-05-22 20:33] VITALS: BP 108/56
[2020-05-23] VITALS (7 sets, daily range): BP systolic 95–126; BP diastolic 55–74
[2020-05-23] MEDS: PIPERACILLIN/TAZO/PMX 4.5GM 100 ML IV SCH ×3 (00:23→17:00)
[2020-05-23] MEDS: VORICONAZOLE 200 MG TABLET PO SCH ×2 (04:17→17:00)
[2020-05-23] MEDS: PANTOPRAZOLE 40MG TABLET PO SCH (05:32)
[2020-05-23 07:20] LABS: MEAN CORPUSCULAR HEMOGLOBIN 31.2 pg (27.5-34.5); MEAN CORPUSCULAR HGB CONC 35.1 g/dL (33.2-36.2); MEAN PLATELET VOLUME 7.6 fL (7.4-10.4); RED BLOOD COUNT 2.23 x10^6/uL (4.38-5.82); RED CELL DISTRIBUTION WIDTH 13.5 % (9.4-14.8)
[2020-05-23 07:25] LABS: ALANINE AMINOTRANSFERASE 54 U/L (12-78); ALBUMIN 2.6 g/dL (3.4-5.0); ANION GAP 8 mmol/L (5-15); CALCIUM 8.9 mg/dL (8.5-10.1); CHLORIDE 108 mmol/L (98-107); CREATININE 0.58 mg/dL (0.7-1.3)
[2020-05-23 07:27] LABS: ALKALINE PHOSPHATASE 113 U/L (45-117); BILIRUBIN,TOTAL 0.3 mg/dL (0.2-1.0); TOTAL PROTEIN 6.6 g/dL (6.4-8.2)
[2020-05-23 08:48] LABS: MD YES; PLATELET COUNT 13 x10^3/uL (130-400)
[2020-05-23 08:51] LABS: LYMPH#(MANUAL) 0.49 x10^3/uL (1-3.4); LYMPHS% (MANUAL) 98 % (22-44); MONOS#(MANUAL) 0.01 x10^3/uL (0.3-2.7); MONOS% (MANUAL) 2 % (2-9)
[2020-05-23 08:52] LABS: <PLATELET ESTIMATE> DECREASED; <PLT MORPHOLOGY> NORMAL PLT MORPH; <RBC MORPHOLOGY> NORMAL
[2020-05-23] MEDS: THIAMINE 100MG TABLET PO SCH (09:03)
[2020-05-23] MEDS: DIPHENHYDRAMINE 50 MG CAPSULE PO PRN (21:40)
[2020-05-24] VITALS (9 sets, daily range): BP systolic 119–133; BP diastolic 57–81
[2020-05-24] MEDS: PIPERACILLIN/TAZO/PMX 4.5GM 100 ML IV SCH ×3 (00:07→15:56)
[2020-05-24] MEDS: OXYcodone IR 5MG TABLET PO PRN ×4 (00:21→21:31)
[2020-05-24] MEDS: VORICONAZOLE 200 MG TABLET PO SCH ×2 (03:21→15:55)
[2020-05-24] MEDS: PANTOPRAZOLE 40MG TABLET PO SCH (05:24)
[2020-05-24 05:44] LABS: MEAN CORPUSCULAR HEMOGLOBIN 31.4 pg (27.5-34.5); MEAN CORPUSCULAR HGB CONC 35.1 g/dL (33.2-36.2); MEAN PLATELET VOLUME 8.1 fL (7.4-10.4); RED BLOOD COUNT 2.38 x10^6/uL (4.38-5.82); RED CELL DISTRIBUTION WIDTH 14.2 % (9.4-14.8)
[2020-05-24 05:50] LABS: PLATELET COUNT 8 x10^3/uL (130-400)
[2020-05-24 05:57] LABS: ALANINE AMINOTRANSFERASE 43 U/L (12-78); ALBUMIN 2.4 g/dL (3.4-5.0); ANION GAP 8 mmol/L (5-15); CALCIUM 8.4 mg/dL (8.5-10.1); CHLORIDE 110 mmol/L (98-107); CREATININE 0.59 mg/dL (0.7-1.3)
[2020-05-24 05:59] LABS: ALKALINE PHOSPHATASE 108 U/L (45-117); BILIRUBIN,TOTAL 0.2 mg/dL (0.2-1.0); TOTAL PROTEIN 6.4 g/dL (6.4-8.2)
[2020-05-24 06:15] LABS: MD YES
[2020-05-24 06:20] LABS: LYMPH#(MANUAL) 0.69 x10^3/uL (1-3.4); LYMPHS% (MANUAL) 99 % (22-44); MONOS#(MANUAL) 0.01 x10^3/uL (0.3-2.7); MONOS% (MANUAL) 1 % (2-9)
[2020-05-24 06:21] LABS: <PLATELET ESTIMATE> DECREASED; <PLT MORPHOLOGY> NORMAL PLT MORPH; <RBC MORPHOLOGY> NORMAL
[2020-05-24] MEDS ORDERED: POTASSIUM CHLORIDE 20 MEQ TAB.ER.PRT PO ONE (08:00)
[2020-05-24] MEDS: THIAMINE 100MG TABLET PO SCH (08:37)
[2020-05-24] MEDS: DIPHENHYDRAMINE 50 MG CAPSULE PO PRN (21:31)
[2020-05-25] VITALS (9 sets, daily range): BP systolic 102–134; BP diastolic 57–81
[2020-05-25] MEDS: PIPERACILLIN/TAZO/PMX 4.5GM 100 ML IV SCH ×3 (00:10→16:17)
[2020-05-25] MEDS: VORICONAZOLE 200 MG TABLET PO SCH ×2 (03:56→16:17)
[2020-05-25 04:25] LABS: MEAN CORPUSCULAR HEMOGLOBIN 31.3 pg (27.5-34.5); MEAN PLATELET VOLUME 8.3 fL (7.4-10.4); RED BLOOD COUNT 2.19 x10^6/uL (4.38-5.82)
[2020-05-25 04:27] LABS: MD YES; PLATELET COUNT 40 x10^3/uL (130-400)
[2020-05-25 04:35] LABS: ALBUMIN 2.4 g/dL (3.4-5.0); ANION GAP 6 mmol/L (5-15); CALCIUM 8.5 mg/dL (8.5-10.1); CHLORIDE 108 mmol/L (98-107)
[2020-05-25 04:39] LABS: ALANINE AMINOTRANSFERASE 52 U/L (12-78); ALKALINE PHOSPHATASE 112 U/L (45-117); BILIRUBIN,TOTAL 0.3 mg/dL (0.2-1.0); CREATININE 0.61 mg/dL (0.7-1.3); TOTAL PROTEIN 6.4 g/dL (6.4-8.2)
[2020-05-25 05:15] LABS: <PLATELET ESTIMATE> DECREASED; <PLT MORPHOLOGY> NORMAL PLT MORPH; <RBC MORPHOLOGY> NORMAL; LYMPH#(MANUAL) 0.69 x10^3/uL (1-3.4); LYMPHS% (MANUAL) 98 % (22-44); MONOS#(MANUAL) 0.01 x10^3/uL (0.3-2.7); MONOS% (MANUAL) 1 % (2-9); REACTIVE LYMPHS # (MANUAL) 0.01 x10^3/uL (0-0); REACTIVE LYMPHS % (MANUAL) 1 % (0-0)
[2020-05-25] MEDS: PANTOPRAZOLE 40MG TABLET PO SCH (06:02)
[2020-05-25] MEDS: OXYcodone IR 5MG TABLET PO PRN ×3 (08:17→20:52)
[2020-05-25] MEDS: THIAMINE 100MG TABLET PO SCH (08:17)
[2020-05-25] MEDS: VALACYCLOVIR 500MG TABLET PO SCH ×2 (09:26→20:51)
[2020-05-25] MEDS: POTASSIUM CHLORIDE 20 MEQ TAB.ER.PRT PO SCH ×2 (09:26→18:04)
[2020-05-25] MEDS: LIDOCAINE 2% VISCOUS 15 ML UDC MM PRN (09:26)
[2020-05-25] MEDS: ONDANSETRON ODT 4 MG PO PRN (21:37)
[2020-05-26 00:57] VITALS: BP 112/69
[2020-05-26] MEDS: PIPERACILLIN/TAZO/PMX 4.5GM 100 ML IV SCH ×3 (01:07→16:35)
[2020-05-26] MEDS: DIPHENHYDRAMINE 50 MG CAPSULE PO PRN (01:10)
[2020-05-26] MEDS: VORICONAZOLE 200 MG TABLET PO SCH ×2 (03:29→16:36)
[2020-05-26] MEDS: PANTOPRAZOLE 40MG TABLET PO SCH (05:19)
[2020-05-26] MEDS: OXYcodone IR 5MG TABLET PO PRN (05:21)
[2020-05-26 05:54] LABS: MEAN CORPUSCULAR HGB CONC 35.9 g/dL (33.2-36.2); MEAN PLATELET VOLUME 8.4 fL (7.4-10.4); RED BLOOD COUNT 2.62 x10^6/uL (4.38-5.82); RED CELL DISTRIBUTION WIDTH 13.9 % (9.4-14.8)
[2020-05-26 06:00] LABS: PLATELET COUNT 31 x10^3/uL (130-400)
[2020-05-26 06:08] LABS: ANION GAP 6 mmol/L (5-15); CALCIUM 8.5 mg/dL (8.5-10.1); CHLORIDE 109 mmol/L (98-107)
[2020-05-26 06:11] LABS: MD YES
[2020-05-26 06:19] LABS: <PLATELET ESTIMATE> DECREASED; <PLT MORPHOLOGY> NORMAL PLT MORPH; <RBC MORPHOLOGY> NORMAL; LYMPH#(MANUAL) 0.59 x10^3/uL (1-3.4); LYMPHS% (MANUAL) 98 % (22-44); MONOS#(MANUAL) 0.01 x10^3/uL (0.3-2.7); MONOS% (MANUAL) 2 % (2-9)
[2020-05-26 07:24] VITALS: BP 127/62
[2020-05-26] MEDS: THIAMINE 100MG TABLET PO SCH (09:13)
[2020-05-26] MEDS: VALACYCLOVIR 500MG TABLET PO SCH ×2 (09:13→20:54)
[2020-05-26] MEDS: LIDOCAINE 2% VISCOUS 15 ML UDC MM PRN (11:33)
[2020-05-26] MEDS ORDERED: ZOLPIDEM 5MG TABLET PO PRN (12:00)
[2020-05-26] MEDS: ACETAMINOPHEN 325 MG TABLET PO PRN (12:14)
[2020-05-26] MEDS: CETIRIZINE 10 MG TABLET PO SCH (12:14)
[2020-05-26 12:40] VITALS: BP 127/61
[2020-05-26 19:28] VITALS: BP 126/65
[2020-05-27] MEDS: PIPERACILLIN/TAZO/PMX 4.5GM 100 ML IV SCH ×2 (00:27→08:37)
[2020-05-27] MEDS: OXYcodone IR 5MG TABLET PO PRN ×3 (04:27→20:37)
[2020-05-27] MEDS: VORICONAZOLE 200 MG TABLET PO SCH ×2 (04:27→16:24)
[2020-05-27 05:15] VITALS: BP 129/72
[2020-05-27] MEDS: PANTOPRAZOLE 40MG TABLET PO SCH (05:18)
[2020-05-27 05:45] LABS: ANION GAP 4 mmol/L (5-15); CALCIUM 9.1 mg/dL (8.5-10.1); CHLORIDE 107 mmol/L (98-107); CREATININE 0.66 mg/dL (0.7-1.3)
[2020-05-27 07:01] LABS: MEAN CORPUSCULAR HEMOGLOBIN 31.3 pg (27.5-34.5); MEAN CORPUSCULAR HGB CONC 34.8 g/dL (33.2-36.2); PLATELET COUNT 50 x10^3/uL (130-400); RED BLOOD COUNT 2.79 x10^6/uL (4.38-5.82)
[2020-05-27 07:05] VITALS: BP 124/81
[2020-05-27 08:04] LABS: MD YES
[2020-05-27 08:20] LABS: LYMPH#(MANUAL) 0.48 x10^3/uL (1-3.4); LYMPHS% (MANUAL) 96 % (22-44); MONOS#(MANUAL) 0.02 x10^3/uL (0.3-2.7); MONOS% (MANUAL) 3 % (2-9); REACTIVE LYMPHS # (MANUAL) 0.01 x10^3/uL (0-0); REACTIVE LYMPHS % (MANUAL) 1 % (0-0)
[2020-05-27 08:21] LABS: <PLATELET ESTIMATE> DECREASED; <PLT MORPHOLOGY> NORMAL PLT MORPH; <RBC MORPHOLOGY> NORMAL
[2020-05-27] MEDS: THIAMINE 100MG TABLET PO SCH (08:38)
[2020-05-27] MEDS: VALACYCLOVIR 500MG TABLET PO SCH ×2 (08:38→20:31)
[2020-05-27] MEDS: CETIRIZINE 10 MG TABLET PO SCH (08:38)
[2020-05-27] MEDS: LEVOFLOXACIN 750 MG TABLET PO SCH (12:56)
[2020-05-27 13:19] VITALS: BP 116/76
[2020-05-27 18:38] VITALS: BP 108/53
[2020-05-27] MEDS: DIPHENHYDRAMINE 50 MG CAPSULE PO PRN (20:36)
[2020-05-28 05:33] VITALS: BP 121/72
[2020-05-28] MEDS: PANTOPRAZOLE 40MG TABLET PO SCH (05:54)
[2020-05-28] MEDS: VORICONAZOLE 200 MG TABLET PO SCH ×2 (05:54→16:49)
[2020-05-28] MEDS: OXYcodone IR 5MG TABLET PO PRN (05:56)
[2020-05-28 06:22] LABS: MEAN CORPUSCULAR HEMOGLOBIN 31.1 pg (27.5-34.5); MEAN PLATELET VOLUME 8.1 fL (7.4-10.4); PLATELET COUNT 119 x10^3/uL (130-400); RED BLOOD COUNT 2.65 x10^6/uL (4.38-5.82); RED CELL DISTRIBUTION WIDTH 13.8 % (9.4-14.8)
[2020-05-28 06:52] LABS: MD YES
[2020-05-28 07:37] LABS: BLASTS # (MANUAL) 0.02 x10^3/uL (0-0); LYMPH#(MANUAL) 0.81 x10^3/uL (1-3.4); LYMPHS% (MANUAL) 90 % (22-44); MONOS#(MANUAL) 0.06 x10^3/uL (0.3-2.7); MONOS% (MANUAL) 7 % (2-9); SEG#(MANUAL) 0.01 x10^3/uL (1.8-6.8); SEGS% (MANUAL) 1 % (42-75)
[2020-05-28 07:38] LABS: <PLATELET ESTIMATE> DECREASED; <PLT MORPHOLOGY> NORMAL PLT MORPH; <RBC MORPHOLOGY> NORMAL
[2020-05-28 07:39] LABS: BLASTS % (MANUAL) 2 % (0-0)
[2020-05-28 07:49] VITALS: BP 116/62
[2020-05-28] MEDS: CETIRIZINE 10 MG TABLET PO SCH (09:01)
[2020-05-28] MEDS: THIAMINE 100MG TABLET PO SCH (09:01)
[2020-05-28] MEDS: VALACYCLOVIR 500MG TABLET PO SCH ×2 (09:01→21:39)
[2020-05-28] MEDS: LEVOFLOXACIN 750 MG TABLET PO SCH (09:01)
[2020-05-28] MEDS ORDERED: LIDODERM 5% PATCH TD PRN (09:30)
[2020-05-28 11:29] VITALS: BP 114/68
[2020-05-28 12:38] VITALS: BP 124/77
[2020-05-28 14:13] VITALS: BP 108/71
[2020-05-28 18:26] VITALS: BP 112/71
[2020-05-28] MEDS: DIPHENHYDRAMINE 50 MG CAPSULE PO PRN (21:38)
[2020-05-29] MEDS: VORICONAZOLE 200 MG TABLET PO SCH ×2 (04:42→16:19)
[2020-05-29 05:00] VITALS: BP 118/73
[2020-05-29 05:10] LABS: MEAN CORPUSCULAR HEMOGLOBIN 31.1 pg (27.5-34.5); MEAN CORPUSCULAR HGB CONC 35.1 g/dL (33.2-36.2); MEAN PLATELET VOLUME 7.8 fL (7.4-10.4); PLATELET COUNT 248 x10^3/uL (130-400); RED BLOOD COUNT 3.07 x10^6/uL (4.38-5.82); RED CELL DISTRIBUTION WIDTH 13.8 % (9.4-14.8)
[2020-05-29 05:25] LABS: ALANINE AMINOTRANSFERASE 64 U/L (12-78); ALBUMIN 2.9 g/dL (3.4-5.0); ANION GAP 6 mmol/L (5-15); CALCIUM 9.1 mg/dL (8.5-10.1); CHLORIDE 108 mmol/L (98-107)
[2020-05-29 05:27] LABS: ALKALINE PHOSPHATASE 150 U/L (45-117); BILIRUBIN,TOTAL 0.2 mg/dL (0.2-1.0); TOTAL PROTEIN 7.6 g/dL (6.4-8.2)
[2020-05-29 06:09] LABS: MD YES
[2020-05-29 06:17] LABS: BAND#(MANUAL) 0.01 x10^3/uL; BANDS%(MANUAL) 1 % (0-7); BLASTS # (MANUAL) 0.03 x10^3/uL (0-0); LYMPH#(MANUAL) 0.95 x10^3/uL (1-3.4); LYMPHS% (MANUAL) 86 % (22-44); MONOS% (MANUAL) 9 % (2-9); SEG#(MANUAL) 0.01 x10^3/uL (1.8-6.8); SEGS% (MANUAL) 1 % (42-75)
[2020-05-29] MEDS: PANTOPRAZOLE 40MG TABLET PO SCH (06:17)
[2020-05-29 06:18] LABS: <PLATELET ESTIMATE> ADEQUATE; <PLT MORPHOLOGY> NORMAL PLT MORPH; <RBC MORPHOLOGY> NORMAL
[2020-05-29 06:19] LABS: BLASTS % (MANUAL) 3 % (0-0)
[2020-05-29 07:09] VITALS: BP 118/84
[2020-05-29] MEDS: VALACYCLOVIR 500MG TABLET PO SCH ×2 (08:44→21:04)
[2020-05-29] MEDS: CETIRIZINE 10 MG TABLET PO SCH (08:44)
[2020-05-29] MEDS: THIAMINE 100MG TABLET PO SCH (08:44)
[2020-05-29] MEDS: LEVOFLOXACIN 750 MG TABLET PO SCH (08:44)
[2020-05-29 13:21] VITALS: BP 122/73
[2020-05-29] MEDS: OXYcodone IR 5MG TABLET PO PRN ×2 (15:05→21:04)
[2020-05-29] MEDS: MUPIROCIN OINT 2%, 22GM TP SCH ×2 (16:19→21:05)
[2020-05-29 18:40] VITALS: BP 116/73
[2020-05-29] MEDS: DIPHENHYDRAMINE 50 MG CAPSULE PO PRN (21:04)
[2020-05-30 04:25] VITALS: BP 112/58
[2020-05-30] MEDS: VORICONAZOLE 200 MG TABLET PO SCH ×2 (04:37→15:49)
[2020-05-30] MEDS: PANTOPRAZOLE 40MG TABLET PO SCH (04:37)
[2020-05-30 05:03] LABS: MEAN CORPUSCULAR HEMOGLOBIN 31.4 pg (27.5-34.5); MEAN CORPUSCULAR HGB CONC 35.3 g/dL (33.2-36.2); MEAN PLATELET VOLUME 7.3 fL (7.4-10.4); PLATELET COUNT 417 x10^3/uL (130-400); RED BLOOD COUNT 2.81 x10^6/uL (4.38-5.82)
[2020-05-30 05:06] LABS: ALANINE AMINOTRANSFERASE 65 U/L (12-78); ALBUMIN 2.7 g/dL (3.4-5.0); ANION GAP 5 mmol/L (5-15); CALCIUM 8.7 mg/dL (8.5-10.1); CHLORIDE 109 mmol/L (98-107); CREATININE 0.87 mg/dL (0.7-1.3)
[2020-05-30 05:08] LABS: ALKALINE PHOSPHATASE 139 U/L (45-117); BILIRUBIN,TOTAL 0.1 mg/dL (0.2-1.0); TOTAL PROTEIN 6.9 g/dL (6.4-8.2)
[2020-05-30 06:01] LABS: MD YES
[2020-05-30 06:07] LABS: BLASTS # (MANUAL) 0.05 x10^3/uL (0-0); LYMPH#(MANUAL) 1.24 x10^3/uL (1-3.4); LYMPHS% (MANUAL) 69 % (22-44); METAMYELOCYTES# (MANUAL) 0.04 x10^3/uL (0-0); METAMYELOCYTES% (MANUAL) 2 % (0-1); MONOS% (MANUAL) 22 % (2-9); SEG#(MANUAL) 0.07 x10^3/uL (1.8-6.8); SEGS% (MANUAL) 4 % (42-75)
[2020-05-30 06:11] LABS: <PLATELET ESTIMATE> INCREASED; <PLT MORPHOLOGY> NORMAL PLT MORPH; POLYCHROMASIA 1+
[2020-05-30 06:12] LABS: BLASTS % (MANUAL) 3 % (0-0)
[2020-05-30 07:02] VITALS: BP 116/76
[2020-05-30] MEDS ORDERED: FENTANYL PF 100 MCG/2ML ONE (08:07)
[2020-05-30] MEDS ORDERED: FLUMAZENIL 0.1 MG/1 ML, 5ML ONE (08:07)
[2020-05-30] MEDS ORDERED: MIDAZOLAM 1 MG/ML, 5ML ONE (08:07)
[2020-05-30] MEDS ORDERED: NALOXONE 1 MG/ML, 2ML ONE (08:08)
[2020-05-30] MEDS: CETIRIZINE 10 MG TABLET PO SCH (09:33)
[2020-05-30] MEDS: VALACYCLOVIR 500MG TABLET PO SCH ×2 (09:33→20:14)
[2020-05-30] MEDS: THIAMINE 100MG TABLET PO SCH (09:33)
[2020-05-30] MEDS: LEVOFLOXACIN 750 MG TABLET PO SCH (09:33)
[2020-05-30] MEDS: MUPIROCIN OINT 2%, 22GM TP SCH ×3 (09:34→20:14)
[2020-05-30 12:46] VITALS: BP 112/74
[2020-05-30] MEDS: OXYcodone IR 5MG TABLET PO PRN (15:50)
[2020-05-30] MEDS: MORPHINE SULFATE 4 MG/ML, 1ML IVPush PRN (18:02)
[2020-05-30 19:16] VITALS: BP 124/76
[2020-05-31 02:03] VITALS: BP 106/53
[2020-05-31] MEDS: PANTOPRAZOLE 40MG TABLET PO SCH (04:50)
[2020-05-31] MEDS: VORICONAZOLE 200 MG TABLET PO SCH ×2 (04:50→17:09)
[2020-05-31] MEDS: ONDANSETRON ODT 4 MG PO PRN (04:51)
[2020-05-31 05:31] LABS: MEAN CORPUSCULAR HEMOGLOBIN 31.9 pg (27.5-34.5); MEAN CORPUSCULAR HGB CONC 35.6 g/dL (33.2-36.2); MEAN PLATELET VOLUME 7.1 fL (7.4-10.4); PLATELET COUNT 634 x10^3/uL (130-400); RED BLOOD COUNT 2.95 x10^6/uL (4.38-5.82); RED CELL DISTRIBUTION WIDTH 13.9 % (9.4-14.8)
[2020-05-31 05:38] LABS: ALBUMIN 2.7 g/dL (3.4-5.0); ANION GAP 7 mmol/L (5-15); CALCIUM 8.4 mg/dL (8.5-10.1); CHLORIDE 109 mmol/L (98-107)
[2020-05-31 05:41] LABS: ALANINE AMINOTRANSFERASE 154 U/L (12-78); ALKALINE PHOSPHATASE 246 U/L (45-117); BILIRUBIN,TOTAL 0.4 mg/dL (0.2-1.0); CREATININE 0.82 mg/dL (0.7-1.3); TOTAL PROTEIN 6.9 g/dL (6.4-8.2)
[2020-05-31 06:11] LABS: MD YES
[2020-05-31 06:15] LABS: BAND#(MANUAL) 0.07 x10^3/uL; BANDS%(MANUAL) 3 % (0-7); BLASTS # (MANUAL) 0.04 x10^3/uL (0-0); LYMPH#(MANUAL) 1.45 x10^3/uL (1-3.4); LYMPHS% (MANUAL) 66 % (22-44); METAMYELOCYTES# (MANUAL) 0.07 x10^3/uL (0-0); METAMYELOCYTES% (MANUAL) 3 % (0-1); MONOS#(MANUAL) 0.44 x10^3/uL (0.3-2.7); MONOS% (MANUAL) 20 % (2-9); SEG#(MANUAL) 0.13 x10^3/uL (1.8-6.8); SEGS% (MANUAL) 6 % (42-75)
[2020-05-31 06:16] LABS: BLASTS % (MANUAL) 2 % (0-0)
[2020-05-31 06:17] LABS: POLYCHROMASIA 1+
[2020-05-31 06:18] LABS: <PLATELET ESTIMATE> INCREASED; SMALL PLATELETS 1+
[2020-05-31 07:21] VITALS: BP 105/60
[2020-05-31] MEDS: MUPIROCIN OINT 2%, 22GM TP SCH ×3 (09:52→20:46)
[2020-05-31] MEDS: THIAMINE 100MG TABLET PO SCH (09:52)
[2020-05-31] MEDS: LEVOFLOXACIN 750 MG TABLET PO SCH (09:53)
[2020-05-31] MEDS: CETIRIZINE 10 MG TABLET PO SCH (09:53)
[2020-05-31] MEDS: VALACYCLOVIR 500MG TABLET PO SCH ×2 (09:53→20:39)
[2020-05-31 13:04] VITALS: BP 112/70
[2020-05-31] MEDS: OXYcodone IR 5MG TABLET PO PRN ×2 (13:37→20:44)
[2020-05-31 18:36] VITALS: BP 132/71
[2020-05-31] MEDS: DIPHENHYDRAMINE 50 MG CAPSULE PO PRN (22:01)
[2020-06-01] MEDS: PANTOPRAZOLE 40MG TABLET PO SCH (05:32)
[2020-06-01] MEDS: VORICONAZOLE 200 MG TABLET PO SCH (05:32)
[2020-06-01 05:48] VITALS: BP 107/65
[2020-06-01 06:12] LABS: MEAN CORPUSCULAR HGB CONC 35.7 g/dL (33.2-36.2); MEAN PLATELET VOLUME 6.9 fL (7.4-10.4); PLATELET COUNT 763 x10^3/uL (130-400); RED BLOOD COUNT 3.13 x10^6/uL (4.38-5.82); RED CELL DISTRIBUTION WIDTH 13.8 % (9.4-14.8)
[2020-06-01 06:24] LABS: ALANINE AMINOTRANSFERASE 121 U/L (12-78); ALBUMIN 2.7 g/dL (3.4-5.0); ANION GAP 5 mmol/L (5-15); CALCIUM 8.3 mg/dL (8.5-10.1); CHLORIDE 109 mmol/L (98-107); CREATININE 0.78 mg/dL (0.7-1.3)
[2020-06-01 06:26] LABS: ALKALINE PHOSPHATASE 238 U/L (45-117); TOTAL PROTEIN 6.7 g/dL (6.4-8.2)
[2020-06-01 06:28] LABS: BILIRUBIN,TOTAL < 0.1 mg/dL (0.2-1.0)
[2020-06-01 06:42] LABS: MD YES
[2020-06-01 06:46] LABS: BAND#(MANUAL) 0.06 x10^3/uL; BANDS%(MANUAL) 2 % (0-7); BLASTS # (MANUAL) 0.03 x10^3/uL (0-0); LYMPHS% (MANUAL) 58 % (22-44); METAMYELOCYTES# (MANUAL) 0.06 x10^3/uL (0-0); METAMYELOCYTES% (MANUAL) 2 % (0-1); MONOS#(MANUAL) 0.59 x10^3/uL (0.3-2.7); MONOS% (MANUAL) 19 % (2-9); MYELOCYTES# (MANUAL) 0.03 x10^3/uL (0-0); MYELOCYTES% (MANUAL) 1 % (0-0); SEG#(MANUAL) 0.53 x10^3/uL (1.8-6.8); SEGS% (MANUAL) 17 % (42-75)
[2020-06-01 06:48] LABS: <PLATELET ESTIMATE> INCREASED; <PLT MORPHOLOGY> NORMAL PLT MORPH; BLASTS % (MANUAL) 1 % (0-0); POLYCHROMASIA 1+
[2020-06-01] MEDS ORDERED: POTASSIUM CHLORIDE 20 MEQ TAB.ER.PRT PO ONE (07:30)
[2020-06-01] MEDS: MUPIROCIN OINT 2%, 22GM TP SCH ×3 (07:38→20:26)
[2020-06-01] MEDS: THIAMINE 100MG TABLET PO SCH (07:38)
[2020-06-01] MEDS: CETIRIZINE 10 MG TABLET PO SCH (07:38)
[2020-06-01] MEDS: LEVOFLOXACIN 750 MG TABLET PO SCH (07:38)
[2020-06-01] MEDS: VALACYCLOVIR 500MG TABLET PO SCH ×2 (07:39→20:26)
[2020-06-01 14:59] VITALS: BP 112/75
[2020-06-01 20:21] VITALS: BP 123/81
[2020-06-01] MEDS: DIPHENHYDRAMINE 50 MG CAPSULE PO PRN (20:26)
[2020-06-02 02:20] VITALS: BP 109/73
[2020-06-02] MEDS: PANTOPRAZOLE 40MG TABLET PO SCH (06:09)
[2020-06-02 06:39] LABS: MEAN CORPUSCULAR HEMOGLOBIN 31.9 pg (27.5-34.5); MEAN CORPUSCULAR HGB CONC 35.4 g/dL (33.2-36.2); MEAN PLATELET VOLUME 6.9 fL (7.4-10.4); PLATELET COUNT 967 x10^3/uL (130-400); RED BLOOD COUNT 2.99 x10^6/uL (4.38-5.82); RED CELL DISTRIBUTION WIDTH 14.2 % (9.4-14.8)
[2020-06-02 06:46] LABS: ALANINE AMINOTRANSFERASE 105 U/L (12-78); ALBUMIN 2.9 g/dL (3.4-5.0); ANION GAP 5 mmol/L (5-15); CALCIUM 9.1 mg/dL (8.5-10.1); CHLORIDE 110 mmol/L (98-107); CREATININE 0.78 mg/dL (0.7-1.3)
[2020-06-02 06:49] LABS: ALKALINE PHOSPHATASE 214 U/L (45-117); BILIRUBIN,TOTAL < 0.1 mg/dL (0.2-1.0); TOTAL PROTEIN 7.1 g/dL (6.4-8.2)
[2020-06-02 07:42] LABS: MD YES
[2020-06-02 07:46] LABS: <PLATELET ESTIMATE> INCREASED; <PLT MORPHOLOGY> NORMAL PLT MORPH; LYMPHS% (MANUAL) 31 % (22-44); MONOS#(MANUAL) 1.39 x10^3/uL (0.3-2.7); MONOS% (MANUAL) 33 % (2-9); MYELOCYTES# (MANUAL) 0.08 x10^3/uL (0-0); MYELOCYTES% (MANUAL) 2 % (0-0); POLYCHROMASIA 1+; SEG#(MANUAL) 1.43 x10^3/uL (1.8-6.8); SEGS% (MANUAL) 34 % (42-75)
[2020-06-02 07:51] VITALS: BP 121/64
[2020-06-02] MEDS: MUPIROCIN OINT 2%, 22GM TP SCH ×2 (09:00→16:00)
[2020-06-02] MEDS: THIAMINE 100MG TABLET PO SCH (09:49)
[2020-06-02] MEDS: VALACYCLOVIR 500MG TABLET PO SCH (09:49)
[2020-06-02] MEDS: CETIRIZINE 10 MG TABLET PO SCH (09:50)
[2020-06-02] MEDS: LEVOFLOXACIN 750 MG TABLET PO SCH (09:50)
[2020-06-02] MEDS ORDERED: THIA100T67 PO (14:10)
[2020-06-02] MEDS ORDERED: PANT40TA6 PO (14:10)
[2020-06-02] MEDS ORDERED: ONDA4TAB13 PO (14:10)
[2020-06-02] MEDS ORDERED: OXYC5TAB98 PO (14:10)
[2020-06-02] MEDS ORDERED: MUPI22OI2 TP (14:10)
[2020-06-02 14:14] VITALS: BP 113/77
== END 2020-06-02 16:22 | disposition home health service (06) | DRG 808 ==
LOC: ED 22:34 → EDIP 04-15 00:35 → 4NW 04-15 07:11 → 3N 04-19 04:24 → 4NW 05-05 16:40
PROVIDERS: ADMIT Family Medicine; ATTEND Internal Medicine
PROC: 30233R1 Transfusion of Nonautologous Platelets into Peripheral Vein, Percutaneous Approach (ICD-10-PCS; principal; 2020-04-15)
PROC: 30233N1 Transfusion of Nonautologous Red Blood Cells into Peripheral Vein, Percutaneous Approach (ICD-10-PCS; 2020-04-15)
PROC: 07DR3ZX Extraction of Iliac Bone Marrow, Percutaneous Approach, Diagnostic (ICD-10-PCS; 2020-04-18)
PROC: 02HV33Z Insertion of Infusion Device into Superior Vena Cava, Percutaneous Approach (ICD-10-PCS; 2020-04-18)
PROC: B548ZZA Ultrasonography of Superior Vena Cava, Guidance (ICD-10-PCS; 2020-04-18)
PROC: 02HV33Z Insertion of Infusion Device into Superior Vena Cava, Percutaneous Approach (ICD-10-PCS; 2020-05-07)
PROC: 02HV33Z Insertion of Infusion Device into Superior Vena Cava, Percutaneous Approach (ICD-10-PCS; 2020-05-07)
PROC: 07DR3ZX Extraction of Iliac Bone Marrow, Percutaneous Approach, Diagnostic (ICD-10-PCS; 2020-05-20)
PROC: 07DR3ZX Extraction of Iliac Bone Marrow, Percutaneous Approach, Diagnostic (ICD-10-PCS; 2020-05-30)
DX: D61.818 Other pancytopenia (principal); J12.82 Pneumonia due to coronavirus disease 2019; J96.01 Acute respiratory failure with hypoxia; K83.1 Obstruction of bile duct; U07.1 COVID-19; A41.89 Other specified sepsis; A04.72 Enterocolitis due to Clostridium difficile, not specified as recurrent; C92.00 Acute myeloblastic leukemia, not having achieved remission; D70.9 Neutropenia, unspecified; E87.6 Hypokalemia; F32.9 Major depressive disorder, single episode, unspecified; G47.00 Insomnia, unspecified; J32.0 Chronic maxillary sinusitis; K04.7 Periapical abscess without sinus; K05.10 Chronic gingivitis, plaque induced; K30 Functional dyspepsia; B00.1 Herpesviral vesicular dermatitis; K59.00 Constipation, unspecified; K82.8 Other specified diseases of gallbladder; T36.1X5A Adverse effect of cephalosporins and other beta-lactam antibiotics, initial encounter; Z72.0 Tobacco use; Z82.0 Family history of epilepsy and other diseases of the nervous system; Z88.0 Allergy status to penicillin; Z90.49 Acquired absence of other specified parts of digestive tract; Z79.899 Other long term (current) drug therapy; Z79.891 Long term (current) use of opiate analgesic; Z79.01 Long term (current) use of anticoagulants
CPT/HCPCS: 36415; 70100; 74018; 77001; 84145; 87400; 87806; 96374; 99285; J3370; J3490; Q0169; 36573; 38222; 70487; 71045; 71046; 76705; 77012; 80048; 80053; 80074; 80202; 81003; 82565; 82607; 83010; 83605; 83615; 83735; 84100; 84443; 84550; 85025; 85045; 85060; 85097; 85379; 85384; 85610; 85651; 85730; 86140; 86308; 86644; 86645; 86850; 86880; 86900; 86923; 87040; 87081; 87324; 87496; 87635; 88237; 88264; 88280; 88305; 88311; 88313; 88341; 88342; 88360; 93005; 93306; 99156; 99157; G0378; J1100; J1170; J1335; J2250; J2405; J2543; J2550; J2997; J3010; J9100; J9211; Q0162; Q9967; C1751; G0475; J0780; J2270; J2310; J2765; J2930; J7030; J7040; J7050; J9203; P9016; P9035; P9037; P9040; U0003

== ENCOUNTER 2020-06-14 09:52 | Day surgery (SDC) | payer BC ==
[~2020-06-14] VITALS: Ht 185.4 cm; Wt 110.0 kg
[~2020-06-14 09:52] MED LIST: MUPI22OI2 TP; ONDA4TAB13 PO; OXYC5TAB98 PO; PANT40TA6 PO; THIA100T67 PO
[2020-06-14] MEDS ORDERED: THIA100T67 PO (10:31)
[2020-06-14] MEDS ORDERED: ONDA4TAB7 PO (10:31)
[2020-06-14] MEDS ORDERED: OXYC1TAB14 PO (10:31)
[2020-06-14] MEDS ORDERED: MULT-658 PO (10:31)
[2020-06-14 10:33] VITALS: BP 136/83
[2020-06-14] MEDS ORDERED: SODIUM CHLORIDE 0.9% 1,000 ML IV SCH (11:00)
[2020-06-14 11:22] LABS: MEAN CORPUSCULAR HEMOGLOBIN 33.6 pg (27.5-34.5); MEAN CORPUSCULAR HGB CONC 35.5 g/dL (33.2-36.2); MEAN PLATELET VOLUME 8.2 fL (7.4-10.4); PLATELET COUNT 524 x10^3/uL (130-400); RED BLOOD COUNT 3.37 x10^6/uL (4.38-5.82); RED CELL DISTRIBUTION WIDTH 17.3 % (9.4-14.8)
[2020-06-14 11:39] LABS: MD YES
[2020-06-14 11:46] LABS: BAND#(MANUAL) 0.11 x10^3/uL; BANDS%(MANUAL) 2 % (0-7); BASOS#(MANUAL) 0.11 x10^3/uL (0-0.1); BASOS% (MANUAL) 2 % (0-1); REACTIVE LYMPHS # (MANUAL) 0.06 x10^3/uL (0-0); REACTIVE LYMPHS % (MANUAL) 1 % (0-0)
[2020-06-14 11:47] LABS: LYMPHS% (MANUAL) 21 % (22-44)
[2020-06-14 11:48] LABS: MONOS#(MANUAL) 0.91 x10^3/uL (0.3-2.7); MONOS% (MANUAL) 16 % (2-9); SEG#(MANUAL) 3.31 x10^3/uL (1.8-6.8); SEGS% (MANUAL) 58 % (42-75)
[2020-06-14 11:49] LABS: ANISOCYTOSIS 1+; OVALOCYTES 1+
[2020-06-14 11:50] LABS: <PLATELET ESTIMATE> INCREASED; <PLT MORPHOLOGY> NORMAL PLT MORPH
[2020-06-14] MEDS ORDERED: FENTANYL PF 100 MCG/2ML ONE (11:53)
[2020-06-14] MEDS ORDERED: MIDAZOLAM 1 MG/ML, 5ML ONE ×2 (11:53→11:54)
[2020-06-14] MEDS ORDERED: NALOXONE 1 MG/ML, 2ML ONE (11:54)
[2020-06-14] MEDS ORDERED: FLUMAZENIL 0.1 MG/1 ML, 5ML ONE (11:54)
[2020-06-14] MEDS ORDERED: OXYcodone/APAP 5/325MG TABLET ONE (14:21)
[2020-06-14] MEDS ORDERED: OXYcodone/APAP 5/325MG TABLET PO PRN (14:30)
== END 2020-06-14 14:30 | disposition home or self-care (01) ==
LOC: OUT 09:52
PROVIDERS: ATTEND Internal Medicine Hematology & Oncology
DX: C92.01 Acute myeloblastic leukemia, in remission (principal); Z79.899 Other long term (current) drug therapy
CPT/HCPCS: 36415; 38222; 77012; 85025; 85060; 85097; 88237; 88264; 88280; 88305; 88311; 88313; 99156; 99157; J2250; J3010; 88341; 88342; J2310

== ENCOUNTER 2020-07-04 14:36 | Inpatient (IN) | payer MEDICAID ==
[~2020-07-04] VITALS: Ht 185.4 cm; Wt 113.7 kg
[~2020-07-04 14:36] MED LIST changes: +ALPHA BRAIN PO; +MULT-658 PO; +ONDA4TAB7 PO; +OXYC1TAB14 PO
--- NOTE | 2020-07-04 15:06 | NUR ---
Pt presents to the ER for abnormal labs including neutropenia. 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 Pt also complaining bloody nose starting last night. Pt complains of abd pain, "I had diarrhea for like 3 days but it went away." Still passing gas. Pt states "I've been living it up and I ate a bunch of fresh fruit and veggies since I've been out." Law at bedside to update pt on POC including admission.
[2020-07-04] MEDS ORDERED: MORPHINE SULFATE 4 MG/ML, 1ML IVPush PRN (15:30)
[2020-07-04] MEDS ORDERED: SODIUM CHLORIDE 0.9% 1,000ML IVBOLUS ONE (15:30)
[2020-07-04] MEDS ORDERED: SODIUM CHLORIDE FLUSH 10ML SYR IVF ONE (15:30)
[2020-07-04] MEDS ORDERED: MORPHINE SULFATE 4 MG/ML, 1ML IVPush ONE (15:30)
[2020-07-04] MEDS ORDERED: ONDANSETRON 2MG/ML, 2ML ONE (15:54)
[2020-07-04] MEDS ORDERED: MORPHINE SULFATE 4 MG/ML, 1ML ONE (15:55)
[2020-07-04] MEDS ORDERED: ONDANSETRON 2MG/ML, 2ML IVPush ONE (16:00)
--- NOTE | 2020-07-04 16:12 | NUR ---
Pt medicated per JUL, laying in bed in position of comfort. Provided with blanket and pillow, call light in reach, bedrails up, all needs met at this time.
[2020-07-04 16:24] LABS: MEAN CORPUSCULAR HEMOGLOBIN 31.9 pg (27.5-34.5); MEAN CORPUSCULAR HGB CONC 34.6 g/dL (33.2-36.2); RED BLOOD COUNT 2.99 x10^6/uL (4.38-5.82); RED CELL DISTRIBUTION WIDTH 14.3 % (9.4-14.8)
[2020-07-04 16:33] LABS: ALBUMIN 3.7 g/dL (3.4-5.0); ANION GAP 9 mmol/L (5-15); CALCIUM 9.1 mg/dL (8.5-10.1); CHLORIDE 109 mmol/L (98-107)
[2020-07-04 16:35] LABS: ALANINE AMINOTRANSFERASE 68 U/L (12-78); ALKALINE PHOSPHATASE 99 U/L (45-117); BILIRUBIN,TOTAL 0.3 mg/dL (0.2-1.0); CREATININE 0.78 mg/dL (0.7-1.3); TOTAL PROTEIN 6.9 g/dL (6.4-8.2)
[2020-07-04 16:41] LABS: MD YES; PLATELET COUNT 4 x10^3/uL (130-400)
[2020-07-04] MEDS ORDERED: FLUC200T4 PO (17:37)
[2020-07-04] MEDS ORDERED: LEVO500T8 PO (17:37)
[2020-07-04] MEDS ORDERED: PANT40GR PO (17:37)
[2020-07-04] MEDS ORDERED: ACYC-114 PO (17:37)
[2020-07-04] MEDS ORDERED: DIPH25CA61 PO (17:40)
[2020-07-04] MEDS ORDERED: ACETAMINOPHEN 325 MG TABLET PO PRN (18:00)
[2020-07-04] MEDS ORDERED: POLYETHYLENE GLYCOL 17 GM PACKET PO PRN (18:00)
[2020-07-04] MEDS ORDERED: DIPHENHYDRAMINE 25 MG CAPSULE PO PRN (18:00)
[2020-07-04] MEDS ORDERED: BISACODYL 10 MG SUPP PR PRN (18:00)
[2020-07-04 18:08] LABS: SEG#(MANUAL) 0.01 x10^3/uL (1.8-6.8); SEGS% (MANUAL) 1 % (42-75)
[2020-07-04 18:09] LABS: BASOS#(MANUAL) 0.02 x10^3/uL (0-0.1); BASOS% (MANUAL) 3 % (0-1); EOS#(MANUAL) 0.02 x10^3/uL (0.0-0.4); EOS% (MANUAL) 3 % (1-7); LYMPH#(MANUAL) 0.45 x10^3/uL (1-3.4); LYMPHS% (MANUAL) 90 % (22-44); REACTIVE LYMPHS # (MANUAL) 0.02 x10^3/uL (0-0); REACTIVE LYMPHS % (MANUAL) 3 % (0-0)
[2020-07-04 18:16] LABS: ANISOCYTOSIS 1+; ROULEAUX 1+
[2020-07-04 18:21] LABS: <PLATELET ESTIMATE> DECREASED; <PLT MORPHOLOGY> QNS FOR PLT MORPH
[2020-07-04 18:28] VITALS: BP 120/72
[2020-07-04 18:32] VITALS: BP 120/72
[2020-07-04 18:49] VITALS: BP 118/67
[2020-07-04 19:19] VITALS: BP 118/67
[2020-07-04 19:34] VITALS: BP 129/75
[2020-07-04] MEDS: HYDROcodone/APAP 5/325 TABLET PO PRN (20:16)
[2020-07-04 20:30] VITALS: BP 118/49
[2020-07-04] MEDS ORDERED: LEVOFLOXACIN 500 MG TABLET PO ONE (20:30)
[2020-07-04] MEDS: ACYCLOVIR 400 MG TABLET PO SCH (21:15)
[2020-07-05] VITALS (7 sets, daily range): BP systolic 104–129; BP diastolic 57–73
[2020-07-05 05:28] LABS: MEAN CORPUSCULAR HEMOGLOBIN 31.8 pg (27.5-34.5); MEAN CORPUSCULAR HGB CONC 34.5 g/dL (33.2-36.2); MEAN PLATELET VOLUME 12.5 fL (7.4-10.4); RED BLOOD COUNT 2.71 x10^6/uL (4.38-5.82); RED CELL DISTRIBUTION WIDTH 14.4 % (9.4-14.8)
[2020-07-05 05:35] LABS: ALBUMIN 3.2 g/dL (3.4-5.0); ANION GAP 7 mmol/L (5-15); CALCIUM 8.5 mg/dL (8.5-10.1); CHLORIDE 108 mmol/L (98-107)
[2020-07-05 05:37] LABS: CREATININE 0.66 mg/dL (0.7-1.3)
[2020-07-05 05:38] LABS: ALANINE AMINOTRANSFERASE 61 U/L (12-78); ALKALINE PHOSPHATASE 87 U/L (45-117); BILIRUBIN,TOTAL 0.4 mg/dL (0.2-1.0); TOTAL PROTEIN 6.5 g/dL (6.4-8.2)
[2020-07-05 05:42] LABS: PLATELET COUNT 4 x10^3/uL (130-400)
[2020-07-05 06:27] LABS: MD YES
[2020-07-05 06:35] LABS: BASOS#(MANUAL) 0.01 x10^3/uL (0-0.1); BASOS% (MANUAL) 1 % (0-1); EOS#(MANUAL) 0.01 x10^3/uL (0.0-0.4); EOS% (MANUAL) 1 % (1-7); LYMPH#(MANUAL) 0.48 x10^3/uL (1-3.4); LYMPHS% (MANUAL) 96 % (22-44); SEG#(MANUAL) 0.01 x10^3/uL (1.8-6.8); SEGS% (MANUAL) 2 % (42-75)
[2020-07-05 06:38] LABS: TEAR DROPS 1+
[2020-07-05 06:39] LABS: ANISOCYTOSIS 1+
[2020-07-05 06:40] LABS: <PLATELET ESTIMATE> DECREASED; <PLT MORPHOLOGY> QNS FOR PLT MORPH
[2020-07-05] MEDS: THIAMINE 100MG TABLET PO SCH (09:00)
[2020-07-05] MEDS ORDERED: LEVOFLOXACIN 500 MG TABLET PO SCH (09:00)
[2020-07-05] MEDS: HYDROcodone/APAP 5/325 TABLET PO PRN ×3 (09:42→20:25)
[2020-07-05] MEDS: ONDANSETRON 2MG/ML, 2ML IVPush PRN (09:42)
[2020-07-05] MEDS: FLUCONAZOLE 200 MG TABLET PO SCH (09:43)
[2020-07-05] MEDS: ACYCLOVIR 400 MG TABLET PO SCH ×2 (09:43→21:26)
[2020-07-05] MEDS: PANTOPRAZOLE GRAN. PKT 40 MG PO SCH (09:43)
[2020-07-05] MEDS: MULTIVITAMIN 1 TABLET PO SCH (09:43)
[2020-07-05] MEDS: DOCUSATE 100 MG CAPSULE PO PRN (20:25)
[2020-07-05] MEDS: MEROPENEM 1 GM in SODIUM CHLORIDE 0.9% 100 ML IV SCH (21:26)
[2020-07-05 21:35] LABS: MICROSCOPIC NOT IND
[2020-07-06 03:50] VITALS: BP 115/69
[2020-07-06] MEDS: MEROPENEM 1 GM in SODIUM CHLORIDE 0.9% 100 ML IV SCH (05:20)
[2020-07-06 05:49] LABS: ANION GAP 5 mmol/L (5-15); CALCIUM 9.1 mg/dL (8.5-10.1); CHLORIDE 106 mmol/L (98-107); CREATININE 0.69 mg/dL (0.7-1.3); MEAN CORPUSCULAR HEMOGLOBIN 31.9 pg (27.5-34.5); MEAN CORPUSCULAR HGB CONC 34.6 g/dL (33.2-36.2); MEAN PLATELET VOLUME 8.8 fL (7.4-10.4); RED BLOOD COUNT 2.56 x10^6/uL (4.38-5.82); RED CELL DISTRIBUTION WIDTH 14.2 % (9.4-14.8)
[2020-07-06 06:22] LABS: MD YES; PLATELET COUNT 26 x10^3/uL (130-400)
[2020-07-06] MEDS ORDERED: DIPHENHYDRAMINE 50 MG CAPSULE PO PRN (06:30)
[2020-07-06] MEDS ORDERED: ACETAMINOPHEN 325 MG TABLET PO ONE (06:30)
[2020-07-06] MEDS ORDERED: DIPHENHYDRAMINE 25 MG CAPSULE PO PRN (06:30)
[2020-07-06] MEDS ORDERED: ACETAMINOPHEN 325 MG TABLET PO PRN (07:00)
[2020-07-06 07:09] VITALS: BP 90/51
[2020-07-06 07:20] LABS: EOS#(MANUAL) 0.02 x10^3/uL (0.0-0.4); EOS% (MANUAL) 4 % (1-7); LYMPH#(MANUAL) 0.57 x10^3/uL (1-3.4); LYMPHS% (MANUAL) 95 % (22-44); SEG#(MANUAL) 0.01 x10^3/uL (1.8-6.8); SEGS% (MANUAL) 1 % (42-75)
[2020-07-06 07:21] LABS: <PLATELET ESTIMATE> DECREASED; <PLT MORPHOLOGY> NORMAL PLT MORPH; <RBC MORPHOLOGY> NORMAL
[2020-07-06] MEDS: FLUCONAZOLE 200 MG TABLET PO SCH (09:22)
[2020-07-06] MEDS: PANTOPRAZOLE GRAN. PKT 40 MG PO SCH (09:22)
[2020-07-06] MEDS: THIAMINE 100MG TABLET PO SCH (09:22)
[2020-07-06] MEDS: MULTIVITAMIN 1 TABLET PO SCH (09:22)
[2020-07-06] MEDS: ACYCLOVIR 400 MG TABLET PO SCH ×2 (09:22→21:57)
[2020-07-06] MEDS: HYDROcodone/APAP 5/325 TABLET PO PRN ×3 (09:24→20:38)
[2020-07-06] MEDS: DOCUSATE 100 MG CAPSULE PO PRN (09:27)
[2020-07-06] MEDS ORDERED: OMNIPAQUE 350 MG/ML, 100ML BOTTLE ONE (10:07)
[2020-07-06] MEDS: PIPERACILLIN/TAZO/PMX 3.375GM 50 ML IV SCH ×3 (11:02→21:58)
[2020-07-06 12:59] VITALS: BP 109/63
[2020-07-06 19:57] VITALS: BP 133/77
[2020-07-07 04:09] VITALS: BP 103/57
[2020-07-07] MEDS: PIPERACILLIN/TAZO/PMX 3.375GM 50 ML IV SCH ×4 (04:29→22:47)
[2020-07-07 04:56] LABS: MEAN CORPUSCULAR HEMOGLOBIN 31.7 pg (27.5-34.5); MEAN CORPUSCULAR HGB CONC 35.1 g/dL (33.2-36.2); MEAN PLATELET VOLUME 8.4 fL (7.4-10.4); RED BLOOD COUNT 2.64 x10^6/uL (4.38-5.82); RED CELL DISTRIBUTION WIDTH 14.1 % (9.4-14.8)
[2020-07-07 05:02] LABS: PLATELET COUNT 19 x10^3/uL (130-400)
[2020-07-07 05:04] LABS: ANION GAP 7 mmol/L (5-15); CALCIUM 8.9 mg/dL (8.5-10.1); CHLORIDE 104 mmol/L (98-107); CREATININE 0.78 mg/dL (0.7-1.3)
[2020-07-07 05:56] LABS: MD YES
[2020-07-07 06:01] LABS: EOS#(MANUAL) 0.01 x10^3/uL (0.0-0.4); EOS% (MANUAL) 2 % (1-7); LYMPH#(MANUAL) 0.55 x10^3/uL (1-3.4); LYMPHS% (MANUAL) 92 % (22-44); MONOS#(MANUAL) 0.01 x10^3/uL (0.3-2.7); MONOS% (MANUAL) 1 % (2-9); SEG#(MANUAL) 0.03 x10^3/uL (1.8-6.8); SEGS% (MANUAL) 5 % (42-75)
[2020-07-07 06:03] LABS: <PLATELET ESTIMATE> DECREASED; <PLT MORPHOLOGY> NORMAL PLT MORPH
[2020-07-07 07:11] VITALS: BP 111/71
[2020-07-07] MEDS: MULTIVITAMIN 1 TABLET PO SCH (09:40)
[2020-07-07] MEDS: PANTOPRAZOLE GRAN. PKT 40 MG PO SCH (09:40)
[2020-07-07] MEDS: THIAMINE 100MG TABLET PO SCH (09:40)
[2020-07-07] MEDS: FLUCONAZOLE 200 MG TABLET PO SCH (09:40)
[2020-07-07] MEDS: ACYCLOVIR 400 MG TABLET PO SCH ×2 (09:40→20:49)
[2020-07-07] MEDS: HYDROcodone/APAP 5/325 TABLET PO PRN ×3 (09:45→20:50)
[2020-07-07 12:30] VITALS: BP 137/86
[2020-07-07] MEDS: LACTOBACILLUS CHEW TABLET PO SCH ×3 (12:52→20:48)
[2020-07-07 19:19] VITALS: BP 123/68
[2020-07-08] MEDS: HYDROcodone/APAP 5/325 TABLET PO PRN ×5 (01:18→20:21)
[2020-07-08 01:24] VITALS: BP 125/74
[2020-07-08] MEDS: PIPERACILLIN/TAZO/PMX 3.375GM 50 ML IV SCH ×4 (04:08→22:30)
[2020-07-08 05:47] LABS: MEAN CORPUSCULAR HEMOGLOBIN 31.3 pg (27.5-34.5); MEAN CORPUSCULAR HGB CONC 34.3 g/dL (33.2-36.2); MEAN PLATELET VOLUME 8.4 fL (7.4-10.4); RED BLOOD COUNT 2.72 x10^6/uL (4.38-5.82)
[2020-07-08 05:49] LABS: ANION GAP 8 mmol/L (5-15); CALCIUM 9.1 mg/dL (8.5-10.1); CHLORIDE 105 mmol/L (98-107); CREATININE 0.79 mg/dL (0.7-1.3); PLATELET COUNT 17 x10^3/uL (130-400)
[2020-07-08 06:10] LABS: MD YES
[2020-07-08 06:15] LABS: BAND#(MANUAL) 0.17 x10^3/uL; BANDS%(MANUAL) 10 % (0-7); SEG#(MANUAL) 0.26 x10^3/uL (1.8-6.8); SEGS% (MANUAL) 15 % (42-75)
[2020-07-08 06:16] LABS: EOS#(MANUAL) 0.02 x10^3/uL (0.0-0.4); EOS% (MANUAL) 1 % (1-7); LYMPH#(MANUAL) 1.17 x10^3/uL (1-3.4); LYMPHS% (MANUAL) 69 % (22-44); METAMYELOCYTES# (MANUAL) 0.02 x10^3/uL (0-0); METAMYELOCYTES% (MANUAL) 1 % (0-1); MONOS#(MANUAL) 0.03 x10^3/uL (0.3-2.7); MONOS% (MANUAL) 2 % (2-9); OTHER CELLS # (MANUAL) 0.03 x10^3/uL (0-0)
[2020-07-08 06:22] LABS: OTHER CELLS % (MANUAL) 2 % (0-0)
[2020-07-08 06:23] LABS: <PLATELET ESTIMATE> DECREASED; <PLT MORPHOLOGY> NORMAL PLT MORPH
[2020-07-08 06:43] LABS: <RBC MORPHOLOGY> NORMAL
[2020-07-08 07:59] VITALS: BP 130/75
[2020-07-08] MEDS: LACTOBACILLUS CHEW TABLET PO SCH ×3 (08:12→20:19)
[2020-07-08] MEDS: THIAMINE 100MG TABLET PO SCH (08:13)
[2020-07-08] MEDS: ACYCLOVIR 400 MG TABLET PO SCH ×2 (08:13→20:19)
[2020-07-08] MEDS: FLUCONAZOLE 200 MG TABLET PO SCH (08:13)
[2020-07-08] MEDS: PANTOPRAZOLE GRAN. PKT 40 MG PO SCH (08:13)
[2020-07-08] MEDS: MULTIVITAMIN 1 TABLET PO SCH (08:13)
[2020-07-08] MEDS: ONDANSETRON 2MG/ML, 2ML IVPush PRN (11:27)
[2020-07-08 12:44] VITALS: BP 124/67
[2020-07-08 19:58] VITALS: BP 114/65
[2020-07-09] MEDS: HYDROcodone/APAP 5/325 TABLET PO PRN ×3 (01:56→09:39)
[2020-07-09 01:58] VITALS: BP 111/59
[2020-07-09] MEDS: PIPERACILLIN/TAZO/PMX 3.375GM 50 ML IV SCH (04:07)
[2020-07-09 06:39] LABS: MEAN CORPUSCULAR HEMOGLOBIN 31.5 pg (27.5-34.5); MEAN CORPUSCULAR HGB CONC 34.5 g/dL (33.2-36.2); MEAN PLATELET VOLUME 8.2 fL (7.4-10.4); RED BLOOD COUNT 2.73 x10^6/uL (4.38-5.82)
[2020-07-09 06:42] LABS: ALANINE AMINOTRANSFERASE 59 U/L (12-78); ALBUMIN 3.2 g/dL (3.4-5.0); ANION GAP 3 mmol/L (5-15); CALCIUM 8.9 mg/dL (8.5-10.1); CHLORIDE 107 mmol/L (98-107)
[2020-07-09 06:44] LABS: ALKALINE PHOSPHATASE 87 U/L (45-117); BILIRUBIN,TOTAL 0.1 mg/dL (0.2-1.0); TOTAL PROTEIN 6.9 g/dL (6.4-8.2)
[2020-07-09 06:53] LABS: PLATELET COUNT 26 x10^3/uL (130-400)
[2020-07-09 07:43] VITALS: BP 117/67
[2020-07-09 08:18] LABS: MD YES
[2020-07-09 08:26] LABS: BAND#(MANUAL) 0.22 x10^3/uL; BANDS%(MANUAL) 5 % (0-7); LYMPH#(MANUAL) 1.32 x10^3/uL (1-3.4); LYMPHS% (MANUAL) 30 % (22-44); METAMYELOCYTES# (MANUAL) 0.09 x10^3/uL (0-0); METAMYELOCYTES% (MANUAL) 2 % (0-1); MONOS#(MANUAL) 0.35 x10^3/uL (0.3-2.7); MONOS% (MANUAL) 8 % (2-9); MYELOCYTES# (MANUAL) 0.31 x10^3/uL (0-0); MYELOCYTES% (MANUAL) 7 % (0-0); SEG#(MANUAL) 1.98 x10^3/uL (1.8-6.8); SEGS% (MANUAL) 45 % (42-75)
[2020-07-09 08:27] LABS: OTHER CELLS # (MANUAL) 0.13 x10^3/uL (0-0); OTHER CELLS % (MANUAL) 3 % (0-0)
[2020-07-09 08:31] LABS: <PLATELET ESTIMATE> DECREASED; <PLT MORPHOLOGY> NORMAL PLT MORPH; <RBC MORPHOLOGY> NORMAL
[2020-07-09] MEDS ORDERED: AMOX1TAB64 PO (08:43)
[2020-07-09] MEDS: MULTIVITAMIN 1 TABLET PO SCH (09:00)
[2020-07-09] MEDS ORDERED: LEVOFLOXACIN 500 MG TABLET PO SCH (09:00)
[2020-07-09] MEDS ORDERED: AMOXICILLIN/CLAV 875-125MG TABLET PO SCH (09:00)
[2020-07-09] MEDS: PANTOPRAZOLE GRAN. PKT 40 MG PO SCH (09:00)
[2020-07-09] MEDS: LACTOBACILLUS CHEW TABLET PO SCH (09:01)
[2020-07-09] MEDS: FLUCONAZOLE 200 MG TABLET PO SCH (09:02)
[2020-07-09] MEDS: ACYCLOVIR 400 MG TABLET PO SCH (09:02)
[2020-07-09] MEDS: THIAMINE 100MG TABLET PO SCH (09:02)
== END 2020-07-09 09:40 | disposition home health service (06) | DRG 660 ==
LOC: ED 15:35 → EDIP 15:55 → 4NW 17:13
PROVIDERS: ADMIT Hospitalist; ATTEND Internal Medicine
PROC: 30233R1 Transfusion of Nonautologous Platelets into Peripheral Vein, Percutaneous Approach (ICD-10-PCS; principal; 2020-07-04)
DX: D61.810 Antineoplastic chemotherapy induced pancytopenia (principal); A04.72 Enterocolitis due to Clostridium difficile, not specified as recurrent; D70.9 Neutropenia, unspecified; C92.00 Acute myeloblastic leukemia, not having achieved remission; D63.8 Anemia in other chronic diseases classified elsewhere; Z20.822 Contact with and (suspected) exposure to COVID-19; K59.00 Constipation, unspecified; R50.81 Fever presenting with conditions classified elsewhere; T45.1X5A Adverse effect of antineoplastic and immunosuppressive drugs, initial encounter; Z82.49 Family history of ischemic heart disease and other diseases of the circulatory system; Z86.19 Personal history of other infectious and parasitic diseases; Z90.49 Acquired absence of other specified parts of digestive tract; Y92.89 Other specified places as the place of occurrence of the external cause; Z88.0 Allergy status to penicillin; Z88.8 Allergy status to other drugs, medicaments and biological substances; Z79.899 Other long term (current) drug therapy
CPT/HCPCS: 36415; 71045; 74018; 74177; 80048; 80053; 81003; 82607; 83735; 84100; 85025; 85049; 87040; 93005; 96374; 96375; 99291; G0378; J2185; J2405; J2543; Q9967; J2270; J7030; P9037

== ENCOUNTER 2020-07-22 12:46 | Inpatient (IN) | payer MEDICAID ==
[~2020-07-22] VITALS: Ht 185.4 cm; Wt 119.3 kg
[~2020-07-22 12:46] MED LIST changes: +ACYC-114 PO; +AMOX1TAB64 PO; +DIPH25CA61 PO; +FLUC200T4 PO; +LEVO500T8 PO; +PANT40GR PO
[2020-07-22 13:35] VITALS: BP 137/80
[2020-07-22 14:18] LABS: MEAN CORPUSCULAR HEMOGLOBIN 33.1 pg (27.5-34.5); MEAN CORPUSCULAR HGB CONC 33.6 g/dL (33.2-36.2); MEAN PLATELET VOLUME 7.1 fL (7.4-10.4); PLATELET COUNT 371 x10^3/uL (130-400); RED BLOOD COUNT 3.44 x10^6/uL (4.38-5.82); RED CELL DISTRIBUTION WIDTH 21.9 % (9.4-14.8)
[2020-07-22 14:24] LABS: ALANINE AMINOTRANSFERASE 54 U/L (12-78); ALBUMIN 4.2 g/dL (3.4-5.0); ANION GAP 6 mmol/L (5-15); CALCIUM 9.4 mg/dL (8.5-10.1); CHLORIDE 106 mmol/L (98-107)
[2020-07-22 14:26] LABS: ALKALINE PHOSPHATASE 90 U/L (45-117); BILIRUBIN,TOTAL 0.1 mg/dL (0.2-1.0); CREATININE 0.88 mg/dL (0.7-1.3); TOTAL PROTEIN 7.8 g/dL (6.4-8.2)
[2020-07-22] MEDS ORDERED: ONDANSETRON 16 MG, DEXAMETHASONE 12 MG in SODIUM CHLORIDE 0.9% 50 ML IVPB SCH (15:00)
[2020-07-22 15:07] LABS: MD YES
[2020-07-22 15:22] LABS: BASOS#(MANUAL) 0.03 x10^3/uL (0-0.1); BASOS% (MANUAL) 1 % (0-1); LYMPH#(MANUAL) 0.95 x10^3/uL (1-3.4); LYMPHS% (MANUAL) 35 % (22-44); METAMYELOCYTES# (MANUAL) 0.03 x10^3/uL (0-0); METAMYELOCYTES% (MANUAL) 1 % (0-1); MONOS#(MANUAL) 0.51 x10^3/uL (0.3-2.7); MONOS% (MANUAL) 19 % (2-9); SEG#(MANUAL) 1.19 x10^3/uL (1.8-6.8); SEGS% (MANUAL) 44 % (42-75)
[2020-07-22] MEDS: ONDANSETRON 16 MG, DEXAMETHASONE 12 MG in SODIUM CHLORIDE 0.9% 50 ML IVPB SCH (15:30)
[2020-07-22] MEDS: predniSOLONE OPHTH SUSP 1%, 5ML OP SCH ×2 (15:30→21:15)
[2020-07-22] MEDS ORDERED: predniSOLONE OPHTH SUSP 1%, 5ML OP SCH (15:30)
[2020-07-22] MEDS ORDERED: FOSAPREPITANT 150 MG in SODIUM CHLORIDE 0.9% 145 ML IV ONE ×3 (15:30)
[2020-07-22 15:37] LABS: ANISOCYTOSIS 1+; POLYCHROMASIA 1+
[2020-07-22 15:39] LABS: <PLATELET ESTIMATE> ADEQUATE
[2020-07-22] MEDS: ACETAMINOPHEN 500 MG TABLET PO PRN (16:37)
[2020-07-22] MEDS: SODIUM CHLORIDE 0.9% IV SCH (17:25)
[2020-07-22] MEDS: CYTARABINE IV SCH (17:25)
[2020-07-22] MEDS: SODIUM CHLORIDE 0.9% 1,000 ML IV SCH (17:54)
[2020-07-22] MEDS ORDERED: SODIUM CHLORIDE 0.9% 1,000 ML IV SCH (18:00)
[2020-07-22] MEDS ORDERED: ONDANSETRON 8 MG TABLET PO PRN (18:30)
[2020-07-22] MEDS: ACYCLOVIR 200 MG CAPSULE PO SCH (21:13)
[2020-07-22 21:17] VITALS: BP 135/96
[2020-07-23 03:19] VITALS: BP 139/70
[2020-07-23] MEDS: predniSOLONE OPHTH SUSP 1%, 5ML OP SCH ×4 (03:26→21:13)
[2020-07-23 04:20] LABS: MEAN CORPUSCULAR HEMOGLOBIN 33.5 pg (27.5-34.5); MEAN CORPUSCULAR HGB CONC 34.1 g/dL (33.2-36.2); MEAN PLATELET VOLUME 7.3 fL (7.4-10.4); PLATELET COUNT 336 x10^3/uL (130-400); RED BLOOD COUNT 3.36 x10^6/uL (4.38-5.82); RED CELL DISTRIBUTION WIDTH 21.7 % (9.4-14.8)
[2020-07-23 04:22] LABS: ALANINE AMINOTRANSFERASE 45 U/L (12-78); ALBUMIN 3.9 g/dL (3.4-5.0); ANION GAP 6 mmol/L (5-15); CHLORIDE 107 mmol/L (98-107); CREATININE 0.89 mg/dL (0.7-1.3)
[2020-07-23 04:25] LABS: ALKALINE PHOSPHATASE 88 U/L (45-117); BILIRUBIN,TOTAL 0.3 mg/dL (0.2-1.0); TOTAL PROTEIN 7.6 g/dL (6.4-8.2)
[2020-07-23 05:23] LABS: MD YES
[2020-07-23 05:26] LABS: BAND#(MANUAL) 0.17 x10^3/uL; BANDS%(MANUAL) 4 % (0-7); LYMPH#(MANUAL) 0.17 x10^3/uL (1-3.4); LYMPHS% (MANUAL) 4 % (22-44); MONOS#(MANUAL) 0.04 x10^3/uL (0.3-2.7); MONOS% (MANUAL) 1 % (2-9); SEG#(MANUAL) 3.91 x10^3/uL (1.8-6.8); SEGS% (MANUAL) 91 % (42-75)
[2020-07-23 05:27] LABS: <PLATELET ESTIMATE> ADEQUATE; <PLT MORPHOLOGY> NORMAL PLT MORPH; ANISOCYTOSIS 1+; POLYCHROMASIA 1+
[2020-07-23] MEDS: SODIUM CHLORIDE 0.9% IV SCH (05:38)
[2020-07-23] MEDS: CYTARABINE IV SCH (05:38)
[2020-07-23] MEDS: SODIUM CHLORIDE 0.9% 1,000 ML IV SCH ×2 (05:46→21:23)
[2020-07-23] MEDS: PANTOPRAZOLE 40MG TABLET PO SCH (06:36)
[2020-07-23 07:18] VITALS: BP 118/60
[2020-07-23] MEDS: ENOXAPARIN 40 MG/0.4 ML SQ SCH (08:56)
[2020-07-23] MEDS: ACYCLOVIR 200 MG CAPSULE PO SCH ×2 (09:05→21:12)
[2020-07-23 09:25] VITALS: BP 118/60
[2020-07-23] MEDS: ONDANSETRON 2MG/ML, 2ML IVPush PRN (09:47)
[2020-07-23 15:00] VITALS: BP 130/70
[2020-07-23] MEDS ORDERED: ONDANSETRON 8 MG TABLET PO PRN (15:30)
[2020-07-23 20:24] VITALS: BP 133/72
[2020-07-24 04:18] VITALS: BP 132/74
[2020-07-24] MEDS: predniSOLONE OPHTH SUSP 1%, 5ML OP SCH ×4 (04:28→21:30)
[2020-07-24 05:31] LABS: MEAN CORPUSCULAR HEMOGLOBIN 33.5 pg (27.5-34.5); MEAN CORPUSCULAR HGB CONC 33.7 g/dL (33.2-36.2); MEAN PLATELET VOLUME 7.8 fL (7.4-10.4); PLATELET COUNT 256 x10^3/uL (130-400); RED BLOOD COUNT 2.95 x10^6/uL (4.38-5.82); RED CELL DISTRIBUTION WIDTH 22.4 % (9.4-14.8)
[2020-07-24 05:41] LABS: ALBUMIN 3.3 g/dL (3.4-5.0); ANION GAP 5 mmol/L (5-15); CALCIUM 8.1 mg/dL (8.5-10.1); CHLORIDE 112 mmol/L (98-107)
[2020-07-24 05:45] LABS: ALANINE AMINOTRANSFERASE 32 U/L (12-78); ALKALINE PHOSPHATASE 75 U/L (45-117); BILIRUBIN,TOTAL 0.2 mg/dL (0.2-1.0); CREATININE 0.85 mg/dL (0.7-1.3); TOTAL PROTEIN 6.2 g/dL (6.4-8.2)
[2020-07-24] MEDS: PANTOPRAZOLE 40MG TABLET PO SCH (05:51)
[2020-07-24 06:06] LABS: MD YES
[2020-07-24 06:10] LABS: BAND#(MANUAL) 0.05 x10^3/uL; BANDS%(MANUAL) 1 % (0-7); LYMPH#(MANUAL) 0.24 x10^3/uL (1-3.4); LYMPHS% (MANUAL) 5 % (22-44); MONOS#(MANUAL) 0.58 x10^3/uL (0.3-2.7); MONOS% (MANUAL) 12 % (2-9); SEG#(MANUAL) 3.94 x10^3/uL (1.8-6.8); SEGS% (MANUAL) 82 % (42-75)
[2020-07-24 06:11] LABS: ANISOCYTOSIS 1+
[2020-07-24 06:12] LABS: POLYCHROMASIA 1+; TEAR DROPS 1+
[2020-07-24 06:15] LABS: <PLATELET ESTIMATE> ADEQUATE; <PLT MORPHOLOGY> NORMAL PLT MORPH
[2020-07-24 07:22] VITALS: BP 118/68
[2020-07-24] MEDS: ACYCLOVIR 200 MG CAPSULE PO SCH ×2 (09:03→21:30)
[2020-07-24] MEDS: ENOXAPARIN 40 MG/0.4 ML SQ SCH (09:04)
[2020-07-24] MEDS: SODIUM CHLORIDE 0.9% 1,000 ML IV SCH ×2 (13:31→23:20)
[2020-07-24 13:50] VITALS: BP 143/81
[2020-07-24] MEDS: ONDANSETRON 16 MG, DEXAMETHASONE 12 MG in SODIUM CHLORIDE 0.9% 50 ML IVPB SCH (15:28)
[2020-07-24] MEDS: SODIUM CHLORIDE 0.9% IV SCH (17:37)
[2020-07-24] MEDS: CYTARABINE IV SCH (17:37)
[2020-07-24 19:29] VITALS: BP 146/80
[2020-07-25 03:58] VITALS: BP 134/81
[2020-07-25] MEDS: predniSOLONE OPHTH SUSP 1%, 5ML OP SCH ×4 (05:25→21:08)
[2020-07-25] MEDS: PANTOPRAZOLE 40MG TABLET PO SCH (05:25)
[2020-07-25] MEDS: CYTARABINE IV SCH (05:35)
[2020-07-25] MEDS: SODIUM CHLORIDE 0.9% IV SCH (05:35)
[2020-07-25 06:04] LABS: BASOPHILS % (AUTO) 1 % (0-1); EOSINOPHILS % (AUTO) 0 % (1-7); LYMPHOCYTES % (AUTO) 5 % (22-44); MEAN CORPUSCULAR HEMOGLOBIN 33.3 pg (27.5-34.5); MEAN CORPUSCULAR HGB CONC 33.9 g/dL (33.2-36.2); MEAN PLATELET VOLUME 7.7 fL (7.4-10.4); MONOCYTES % (AUTO) 3 % (2-9); NEUTROPHILS % (AUTO) 91 % (42-75); PLATELET COUNT 254 x10^3/uL (130-400); RED BLOOD COUNT 3.05 x10^6/uL (4.38-5.82); RED CELL DISTRIBUTION WIDTH 20.7 % (9.4-14.8)
[2020-07-25 06:06] LABS: ALBUMIN 3.6 g/dL (3.4-5.0); ANION GAP 6 mmol/L (5-15); CALCIUM 8.9 mg/dL (8.5-10.1); CHLORIDE 107 mmol/L (98-107)
[2020-07-25 06:09] LABS: ALANINE AMINOTRANSFERASE 30 U/L (12-78); ALKALINE PHOSPHATASE 58 U/L (45-117); BILIRUBIN,TOTAL 0.4 mg/dL (0.2-1.0); CREATININE 0.76 mg/dL (0.7-1.3); TOTAL PROTEIN 6.9 g/dL (6.4-8.2)
[2020-07-25 06:37] LABS: MD SCAN
[2020-07-25 07:52] VITALS: BP 130/65
[2020-07-25] MEDS: ENOXAPARIN 40 MG/0.4 ML SQ SCH (08:39)
[2020-07-25] MEDS: ACYCLOVIR 200 MG CAPSULE PO SCH ×2 (09:13→21:07)
[2020-07-25 14:00] VITALS: BP 133/74
[2020-07-25 19:19] VITALS: BP 118/71
[2020-07-25] MEDS: SODIUM CHLORIDE 0.9% 1,000 ML IV SCH (20:55)
[2020-07-26 03:55] VITALS: BP 105/67
[2020-07-26] MEDS: predniSOLONE OPHTH SUSP 1%, 5ML OP SCH ×4 (05:31→20:53)
[2020-07-26] MEDS: PANTOPRAZOLE 40MG TABLET PO SCH (05:31)
[2020-07-26 05:48] LABS: BASOPHILS % (AUTO) 1 % (0-1); EOSINOPHILS % (AUTO) 0 % (1-7); LYMPHOCYTES % (AUTO) 17 % (22-44); MEAN CORPUSCULAR HEMOGLOBIN 33.4 pg (27.5-34.5); MEAN CORPUSCULAR HGB CONC 34.3 g/dL (33.2-36.2); MEAN PLATELET VOLUME 7.2 fL (7.4-10.4); MONOCYTES % (AUTO) 4 % (2-9); NEUTROPHILS % (AUTO) 79 % (42-75); PLATELET COUNT 233 x10^3/uL (130-400); RED BLOOD COUNT 2.87 x10^6/uL (4.38-5.82)
[2020-07-26 05:49] LABS: MD NO
[2020-07-26 06:00] LABS: CHLORIDE 110 mmol/L (98-107)
[2020-07-26 06:08] LABS: ALANINE AMINOTRANSFERASE 33 U/L (12-78); ALBUMIN 3.3 g/dL (3.4-5.0); ALKALINE PHOSPHATASE 64 U/L (45-117); ANION GAP 4 mmol/L (5-15); BILIRUBIN,TOTAL 0.2 mg/dL (0.2-1.0); CALCIUM 8.5 mg/dL (8.5-10.1); CREATININE 0.76 mg/dL (0.7-1.3); TOTAL PROTEIN 6.1 g/dL (6.4-8.2)
[2020-07-26 08:08] VITALS: BP 127/70
[2020-07-26] MEDS: ENOXAPARIN 40 MG/0.4 ML SQ SCH (09:00)
[2020-07-26] MEDS: ACYCLOVIR 200 MG CAPSULE PO SCH ×2 (09:52→20:54)
[2020-07-26] MEDS: PROCHLORPERAZINE 10MG TABLET PO PRN (12:00)
[2020-07-26 13:40] VITALS: BP 119/63
[2020-07-26] MEDS ORDERED: FOSAPREPITANT 150 MG in SODIUM CHLORIDE 0.9% 145 ML IV ONE ×2 (15:00→15:30)
[2020-07-26] MEDS: SODIUM CHLORIDE 0.9% 1,000 ML IV SCH (15:15)
[2020-07-26] MEDS: ONDANSETRON 16 MG, DEXAMETHASONE 12 MG in SODIUM CHLORIDE 0.9% 50 ML IVPB SCH (15:42)
[2020-07-26] MEDS: CYTARABINE IV SCH (16:50)
[2020-07-26] MEDS: SODIUM CHLORIDE 0.9% IV SCH (16:50)
[2020-07-26 19:41] VITALS: BP 119/64
[2020-07-27 03:20] VITALS: BP 128/64
[2020-07-27] MEDS: ACETAMINOPHEN 500 MG TABLET PO PRN (03:23)
[2020-07-27] MEDS: ONDANSETRON 2MG/ML, 2ML IVPush PRN (03:23)
[2020-07-27 04:07] LABS: BASOPHILS % (AUTO) 1 % (0-1); EOSINOPHILS % (AUTO) 0 % (1-7); LYMPHOCYTES % (AUTO) 4 % (22-44); MEAN CORPUSCULAR HEMOGLOBIN 33.5 pg (27.5-34.5); MEAN CORPUSCULAR HGB CONC 34.2 g/dL (33.2-36.2); MEAN PLATELET VOLUME 7.4 fL (7.4-10.4); MONOCYTES % (AUTO) 1 % (2-9); NEUTROPHILS % (AUTO) 94 % (42-75); PLATELET COUNT 262 x10^3/uL (130-400); RED BLOOD COUNT 3.18 x10^6/uL (4.38-5.82); RED CELL DISTRIBUTION WIDTH 19.4 % (9.4-14.8)
[2020-07-27 04:09] LABS: MD SCAN
[2020-07-27 04:13] LABS: ALANINE AMINOTRANSFERASE 36 U/L (12-78); ALBUMIN 3.8 g/dL (3.4-5.0); ANION GAP 4 mmol/L (5-15); CALCIUM 9.5 mg/dL (8.5-10.1); CHLORIDE 103 mmol/L (98-107)
[2020-07-27 04:16] LABS: ALKALINE PHOSPHATASE 69 U/L (45-117); BILIRUBIN,TOTAL 0.4 mg/dL (0.2-1.0); CREATININE 0.85 mg/dL (0.7-1.3); TOTAL PROTEIN 7.1 g/dL (6.4-8.2)
[2020-07-27] MEDS: SODIUM CHLORIDE 0.9% 1,000 ML IV SCH (04:20)
[2020-07-27] MEDS: SODIUM CHLORIDE 0.9% IV SCH (05:28)
[2020-07-27] MEDS: CYTARABINE IV SCH (05:28)
[2020-07-27] MEDS: PANTOPRAZOLE 40MG TABLET PO SCH (05:33)
[2020-07-27] MEDS: predniSOLONE OPHTH SUSP 1%, 5ML OP SCH ×2 (05:33→10:30)
[2020-07-27 07:21] VITALS: BP 122/73
[2020-07-27] MEDS ORDERED: PRED5DRO20 EACHEYE (07:55)
[2020-07-27] MEDS ORDERED: ONDA8TAB18 PO (07:58)
[2020-07-27] MEDS ORDERED: PANT40TA6 PO (07:59)
[2020-07-27] MEDS ORDERED: PROC10TA78 PO (08:00)
[2020-07-27] MEDS: ENOXAPARIN 40 MG/0.4 ML SQ SCH (08:54)
[2020-07-27] MEDS: PROCHLORPERAZINE 10MG TABLET PO PRN (09:39)
[2020-07-27] MEDS: ACYCLOVIR 200 MG CAPSULE PO SCH (09:39)
== END 2020-07-27 11:06 | disposition home health service (06) | DRG 690 ==
LOC: 4NW 13:15
PROVIDERS: ADMIT Internal Medicine Hematology & Oncology; ATTEND Internal Medicine Hematology & Oncology
DX: C92.00 Acute myeloblastic leukemia, not having achieved remission (principal); K21.9 Gastro-esophageal reflux disease without esophagitis; D69.6 Thrombocytopenia, unspecified; Z51.11 Encounter for antineoplastic chemotherapy; Z87.891 Personal history of nicotine dependence; K29.70 Gastritis, unspecified, without bleeding; H53.8 Other visual disturbances; Z88.0 Allergy status to penicillin; Z88.8 Allergy status to other drugs, medicaments and biological substances; Z86.16 Personal history of COVID-19
CPT/HCPCS: 36415; 71045; 80053; 85025; G0378; J1100; J1453; J2405; J9100; Q0162; Q0164; J7030; J7040

== ENCOUNTER 2020-08-19 09:00 | Inpatient (IN) | payer MEDICAID ==
[~2020-08-19] VITALS: Ht 185.4 cm; Wt 118.9 kg
[~2020-08-19 09:00] MED LIST changes: -ACYC-114 PO; +ACYC-40 PO; +ONDA8TAB18 PO; +PRED5DRO20 EACHEYE; +PROC10TA78 PO
[2020-08-19] MEDS ORDERED: PROC10TA2 PO (10:30)
[2020-08-19] MEDS ORDERED: LEVO500T8 PO (10:41)
[2020-08-19] MEDS ORDERED: OXYC1TAB14 PO (10:42)
[2020-08-19] MEDS ORDERED: ONDANSETRON 8 MG TABLET PO SCH (11:00)
[2020-08-19] MEDS ORDERED: [UNRECOGNIZED DRUG - OTHER] EACHEYE SCH (11:00)
[2020-08-19] MEDS ORDERED: PROCHLORPERAZINE 10MG TABLET PO SCH (11:00)
[2020-08-19] MEDS ORDERED: FLUCONAZOLE 200 MG TABLET PO SCH (11:00)
[2020-08-19] MEDS ORDERED: LEVOFLOXACIN 500 MG TABLET PO SCH (11:00)
[2020-08-19 11:10] LABS: MEAN CORPUSCULAR HEMOGLOBIN 32.5 pg (27.5-34.5); MEAN CORPUSCULAR HGB CONC 34.4 g/dL (33.2-36.2); MEAN PLATELET VOLUME 9.2 fL (7.4-10.4); PLATELET COUNT 194 x10^3/uL (130-400); RED BLOOD COUNT 2.74 x10^6/uL (4.38-5.82); RED CELL DISTRIBUTION WIDTH 17.1 % (9.4-14.8)
[2020-08-19 11:12] LABS: ALANINE AMINOTRANSFERASE 32 U/L (12-78); ALBUMIN 3.9 g/dL (3.4-5.0); ANION GAP 3 mmol/L (5-15); CALCIUM 9.2 mg/dL (8.5-10.1); CHLORIDE 109 mmol/L (98-107); CREATININE 0.81 mg/dL (0.7-1.3)
[2020-08-19 11:14] LABS: ALKALINE PHOSPHATASE 98 U/L (45-117); TOTAL PROTEIN 7.9 g/dL (6.4-8.2)
[2020-08-19 11:15] LABS: BILIRUBIN,TOTAL < 0.1 mg/dL (0.2-1.0)
[2020-08-19 11:26] LABS: MD YES
[2020-08-19 11:29] LABS: BAND#(MANUAL) 0.11 x10^3/uL; BANDS%(MANUAL) 3 % (0-7); BASOS#(MANUAL) 0.04 x10^3/uL (0-0.1); BASOS% (MANUAL) 1 % (0-1); LYMPH#(MANUAL) 1.08 x10^3/uL (1-3.4); LYMPHS% (MANUAL) 30 % (22-44); METAMYELOCYTES# (MANUAL) 0.04 x10^3/uL (0-0); METAMYELOCYTES% (MANUAL) 1 % (0-1); MONOS#(MANUAL) 0.83 x10^3/uL (0.3-2.7); MONOS% (MANUAL) 23 % (2-9); SEG#(MANUAL) 1.51 x10^3/uL (1.8-6.8); SEGS% (MANUAL) 42 % (42-75)
[2020-08-19 11:30] LABS: <PLATELET ESTIMATE> ADEQUATE; <PLT MORPHOLOGY> NORMAL PLT MORPH; ANISOCYTOSIS 1+; POLYCHROMASIA 1+
[2020-08-19] MEDS: predniSOLONE OPHTH SUSP 1%, 5ML HOMEOPHTH SCH ×2 (12:00→18:30)
[2020-08-19] MEDS: ENOXAPARIN 40 MG/0.4 ML SQ SCH (12:30)
[2020-08-19] MEDS: PANTOPRAZOLE 40MG TABLET PO SCH (12:43)
[2020-08-19] MEDS: SODIUM CHLORIDE 0.9% 1,000 ML IV SCH (12:43)
[2020-08-19] MEDS ORDERED: FOSAPREPITANT 150 MG in SODIUM CHLORIDE 0.9% 145 ML IV ONE (13:00)
[2020-08-19] MEDS: ONDANSETRON 16 MG, DEXAMETHASONE 12 MG in SODIUM CHLORIDE 0.9% 50 ML IVPB SCH (13:51)
[2020-08-19 14:05] VITALS: BP 97/45
[2020-08-19] MEDS: SODIUM CHLORIDE 0.9% IV SCH (15:04)
[2020-08-19] MEDS: CYTARABINE IV SCH (15:04)
[2020-08-19 18:49] VITALS: BP 122/71
[2020-08-19] MEDS: PROCHLORPERAZINE 10MG TABLET PO PRN (19:51)
[2020-08-19] MEDS: ACYCLOVIR 400 MG TABLET PO SCH (20:46)
[2020-08-19] MEDS: OXYcodone/APAP 5/325MG TABLET PO PRN (20:48)
[2020-08-20] MEDS: predniSOLONE OPHTH SUSP 1%, 5ML HOMEOPHTH SCH ×4 (00:13→17:35)
[2020-08-20] MEDS: SODIUM CHLORIDE 0.9% 1,000 ML IV SCH ×2 (00:15→15:24)
[2020-08-20 00:18] VITALS: BP 118/60
[2020-08-20] MEDS: CYTARABINE IV SCH (02:27)
[2020-08-20] MEDS: SODIUM CHLORIDE 0.9% IV SCH (02:27)
[2020-08-20] MEDS: PROCHLORPERAZINE 10MG TABLET PO PRN ×2 (05:19→17:32)
[2020-08-20] MEDS: OXYcodone/APAP 5/325MG TABLET PO PRN ×2 (05:19→18:35)
[2020-08-20 06:06] LABS: BASOPHILS % (AUTO) 1 % (0-1); EOSINOPHILS % (AUTO) 0 % (1-7); LYMPHOCYTES % (AUTO) 4 % (22-44); MEAN CORPUSCULAR HGB CONC 34.9 g/dL (33.2-36.2); MONOCYTES % (AUTO) 2 % (2-9); NEUTROPHILS % (AUTO) 93 % (42-75); PLATELET COUNT 201 x10^3/uL (130-400); RED BLOOD COUNT 2.59 x10^6/uL (4.38-5.82); RED CELL DISTRIBUTION WIDTH 17.5 % (9.4-14.8)
[2020-08-20 06:08] LABS: MD NO
[2020-08-20 06:09] LABS: ALBUMIN 3.4 g/dL (3.4-5.0); ANION GAP 7 mmol/L (5-15); CALCIUM 9.1 mg/dL (8.5-10.1); CHLORIDE 107 mmol/L (98-107)
[2020-08-20 06:12] LABS: ALANINE AMINOTRANSFERASE 27 U/L (12-78); ALKALINE PHOSPHATASE 79 U/L (45-117); BILIRUBIN,TOTAL 0.2 mg/dL (0.2-1.0); CREATININE 0.88 mg/dL (0.7-1.3); TOTAL PROTEIN 7.1 g/dL (6.4-8.2)
[2020-08-20 08:13] VITALS: BP 123/63
[2020-08-20] MEDS ORDERED: LORazepam 1MG TABLET PO PRN (08:30)
[2020-08-20] MEDS ORDERED: ONDANSETRON 2MG/ML, 2ML ONE (09:09)
[2020-08-20] MEDS: ONDANSETRON 2MG/ML, 2ML IVPush PRN ×2 (09:12→21:11)
[2020-08-20] MEDS: ACYCLOVIR 400 MG TABLET PO SCH ×2 (09:13→21:11)
[2020-08-20] MEDS: PANTOPRAZOLE 40MG TABLET PO SCH (09:13)
[2020-08-20] MEDS: ENOXAPARIN 40 MG/0.4 ML SQ SCH (12:30)
[2020-08-20 12:56] VITALS: BP 122/63
[2020-08-20] MEDS ORDERED: ONDANSETRON ODT 8 MG PO PRN (14:00)
[2020-08-20 18:24] VITALS: BP 118/62
[2020-08-21 00:15] VITALS: BP 105/62
[2020-08-21] MEDS: OXYcodone/APAP 5/325MG TABLET PO PRN ×2 (00:15→21:12)
[2020-08-21] MEDS: PROCHLORPERAZINE 10MG TABLET PO PRN (01:21)
[2020-08-21] MEDS: SODIUM CHLORIDE 0.9% 1,000 ML IV SCH ×2 (03:33→20:18)
[2020-08-21] MEDS: predniSOLONE OPHTH SUSP 1%, 5ML HOMEOPHTH SCH ×4 (05:39→17:55)
[2020-08-21 06:00] LABS: BASOPHILS % (AUTO) 1 % (0-1); EOSINOPHILS % (AUTO) 0 % (1-7); LYMPHOCYTES % (AUTO) 16 % (22-44); MEAN CORPUSCULAR HEMOGLOBIN 32.7 pg (27.5-34.5); MEAN CORPUSCULAR HGB CONC 34.4 g/dL (33.2-36.2); MEAN PLATELET VOLUME 8.2 fL (7.4-10.4); MONOCYTES % (AUTO) 17 % (2-9); NEUTROPHILS % (AUTO) 67 % (42-75); PLATELET COUNT 177 x10^3/uL (130-400); RED BLOOD COUNT 2.36 x10^6/uL (4.38-5.82); RED CELL DISTRIBUTION WIDTH 17.9 % (9.4-14.8)
[2020-08-21 06:09] LABS: CHLORIDE 109 mmol/L (98-107)
[2020-08-21 06:17] LABS: MD NO
[2020-08-21 06:20] LABS: ALANINE AMINOTRANSFERASE 19 U/L (12-78); ALBUMIN 3.1 g/dL (3.4-5.0); ALKALINE PHOSPHATASE 70 U/L (45-117); ANION GAP 6 mmol/L (5-15); CALCIUM 8.2 mg/dL (8.5-10.1); CREATININE 0.99 mg/dL (0.7-1.3); TOTAL PROTEIN 6.2 g/dL (6.4-8.2)
[2020-08-21 06:35] LABS: BILIRUBIN,TOTAL < 0.1 mg/dL (0.2-1.0)
[2020-08-21 08:55] VITALS: BP 103/51
[2020-08-21] MEDS: ACYCLOVIR 400 MG TABLET PO SCH ×2 (09:45→21:00)
[2020-08-21] MEDS: PANTOPRAZOLE 40MG TABLET PO SCH (09:45)
[2020-08-21] MEDS ORDERED: POTASSIUM CHLORIDE 20 MEQ TAB.ER.PRT PO ONE (10:30)
[2020-08-21] MEDS: ENOXAPARIN 40 MG/0.4 ML SQ SCH (12:22)
[2020-08-21] MEDS: ONDANSETRON 16 MG, DEXAMETHASONE 12 MG in SODIUM CHLORIDE 0.9% 50 ML IVPB SCH (13:46)
[2020-08-21 14:16] VITALS: BP 124/69
[2020-08-21] MEDS: CYTARABINE IV SCH (14:23)
[2020-08-21] MEDS: SODIUM CHLORIDE 0.9% IV SCH (14:23)
[2020-08-21 19:28] VITALS: BP 109/65
[2020-08-21] MEDS: LORazepam 1MG TABLET PO PRN (20:18)
[2020-08-22] MEDS: predniSOLONE OPHTH SUSP 1%, 5ML HOMEOPHTH SCH ×4 (00:10→17:41)
[2020-08-22] MEDS: CYTARABINE IV SCH (02:32)
[2020-08-22] MEDS: SODIUM CHLORIDE 0.9% IV SCH (02:32)
[2020-08-22] MEDS: PROCHLORPERAZINE 10MG TABLET PO PRN ×2 (02:41→15:19)
[2020-08-22] MEDS: LORazepam 1MG TABLET PO PRN ×3 (02:46→21:14)
[2020-08-22 02:47] VITALS: BP 118/57
[2020-08-22 06:34] LABS: BASOPHILS % (AUTO) 0 % (0-1); EOSINOPHILS % (AUTO) 0 % (1-7); LYMPHOCYTES % (AUTO) 5 % (22-44); MEAN CORPUSCULAR HEMOGLOBIN 32.9 pg (27.5-34.5); MEAN CORPUSCULAR HGB CONC 35.3 g/dL (33.2-36.2); MEAN PLATELET VOLUME 8.3 fL (7.4-10.4); MONOCYTES % (AUTO) 3 % (2-9); NEUTROPHILS % (AUTO) 92 % (42-75); PLATELET COUNT 198 x10^3/uL (130-400); RED BLOOD COUNT 2.42 x10^6/uL (4.38-5.82); RED CELL DISTRIBUTION WIDTH 17.8 % (9.4-14.8)
[2020-08-22 06:39] LABS: ALBUMIN 3.4 g/dL (3.4-5.0); ANION GAP 7 mmol/L (5-15); CALCIUM 8.8 mg/dL (8.5-10.1); CHLORIDE 107 mmol/L (98-107)
[2020-08-22 06:42] LABS: ALANINE AMINOTRANSFERASE 23 U/L (12-78); ALKALINE PHOSPHATASE 68 U/L (45-117); BILIRUBIN,TOTAL 0.2 mg/dL (0.2-1.0); CREATININE 0.79 mg/dL (0.7-1.3); TOTAL PROTEIN 6.7 g/dL (6.4-8.2)
[2020-08-22 06:55] LABS: MD MORPH REVIEW ONLY
[2020-08-22 06:56] LABS: ANISOCYTOSIS 1+; OVALOCYTES 1+; TEAR DROPS 1+
[2020-08-22 06:57] LABS: <PLATELET ESTIMATE> ADEQUATE; <PLT MORPHOLOGY> NORMAL PLT MORPH
[2020-08-22 07:05] VITALS: BP 123/69
[2020-08-22] MEDS: PANTOPRAZOLE 40MG TABLET PO SCH (08:56)
[2020-08-22] MEDS: SODIUM CHLORIDE 0.9% 1,000 ML IV SCH (08:56)
[2020-08-22] MEDS: ACYCLOVIR 400 MG TABLET PO SCH ×2 (08:56→21:14)
[2020-08-22] MEDS: OXYcodone/APAP 5/325MG TABLET PO PRN ×2 (09:03→17:46)
[2020-08-22] MEDS: ENOXAPARIN 40 MG/0.4 ML SQ SCH (11:59)
[2020-08-22 12:56] VITALS: BP 117/69
[2020-08-22 19:00] VITALS: BP 115/71
[2020-08-23] MEDS: predniSOLONE OPHTH SUSP 1%, 5ML HOMEOPHTH SCH ×4 (00:17→17:39)
[2020-08-23] MEDS: OXYcodone/APAP 5/325MG TABLET PO PRN ×4 (00:18→21:16)
[2020-08-23] MEDS: SODIUM CHLORIDE 0.9% 1,000 ML IV SCH ×2 (00:18→13:45)
[2020-08-23 05:16] VITALS: BP 114/62
[2020-08-23] MEDS: LORazepam 1MG TABLET PO PRN ×3 (05:39→21:16)
[2020-08-23 06:10] LABS: ALBUMIN 2.5 g/dL (3.4-5.0); ANION GAP 4 mmol/L (5-15); CALCIUM 6.4 mg/dL (8.5-10.1); CHLORIDE 118 mmol/L (98-107)
[2020-08-23 06:13] LABS: ALANINE AMINOTRANSFERASE 16 U/L (12-78); ALKALINE PHOSPHATASE 43 U/L (45-117); BILIRUBIN,TOTAL 0.2 mg/dL (0.2-1.0); CREATININE 0.44 mg/dL (0.7-1.3)
[2020-08-23] MEDS ORDERED: POTASSIUM CHLORIDE 40 MEQ in SODIUM CHLORIDE 0.9% 100 ML IV ONE (06:30)
[2020-08-23] MEDS ORDERED: POTASSIUM CHLORIDE 40 MEQ in SODIUM CHLORIDE 0.9% 500 ML IV ONE (06:30)
[2020-08-23 06:57] LABS: ANION GAP 4 mmol/L (5-15); CALCIUM 9.1 mg/dL (8.5-10.1); CHLORIDE 105 mmol/L (98-107); CREATININE 0.75 mg/dL (0.7-1.3)
[2020-08-23 07:04] LABS: MEAN CORPUSCULAR HEMOGLOBIN 32.4 pg (27.5-34.5); MEAN CORPUSCULAR HGB CONC 34.7 g/dL (33.2-36.2); PLATELET COUNT 180 x10^3/uL (130-400); RED BLOOD COUNT 2.34 x10^6/uL (4.38-5.82); RED CELL DISTRIBUTION WIDTH 17.7 % (9.4-14.8)
[2020-08-23 07:29] LABS: MD YES
[2020-08-23 07:35] LABS: ANISOCYTOSIS 1+; BAND#(MANUAL) 0.05 x10^3/uL; BANDS%(MANUAL) 3 % (0-7); LYMPH#(MANUAL) 0.31 x10^3/uL (1-3.4); LYMPHS% (MANUAL) 17 % (22-44); MONOS#(MANUAL) 0.02 x10^3/uL (0.3-2.7); MONOS% (MANUAL) 1 % (2-9); OVALOCYTES 1+; SEG#(MANUAL) 1.42 x10^3/uL (1.8-6.8); SEGS% (MANUAL) 79 % (42-75); TEAR DROPS 1+
[2020-08-23 07:36] LABS: <PLATELET ESTIMATE> ADEQUATE; <PLT MORPHOLOGY> NORMAL PLT MORPH
[2020-08-23] MEDS ORDERED: POTASSIUM CHLORIDE 20 MEQ TAB.ER.PRT PO ONE (08:00)
[2020-08-23 08:14] VITALS: BP 90/43
[2020-08-23] MEDS: ACYCLOVIR 400 MG TABLET PO SCH ×2 (08:39→21:16)
[2020-08-23] MEDS: PANTOPRAZOLE 40MG TABLET PO SCH (08:39)
[2020-08-23] MEDS: ENOXAPARIN 40 MG/0.4 ML SQ SCH (11:48)
[2020-08-23] MEDS ORDERED: FOSAPREPITANT 150 MG in SODIUM CHLORIDE 0.9% 145 ML IV ONE (13:00)
[2020-08-23 13:40] VITALS: BP 111/72
[2020-08-23] MEDS: ONDANSETRON 16 MG, DEXAMETHASONE 12 MG in SODIUM CHLORIDE 0.9% 50 ML IVPB SCH (14:21)
[2020-08-23] MEDS: SODIUM CHLORIDE 0.9% IV SCH (15:11)
[2020-08-23] MEDS: CYTARABINE IV SCH (15:11)
[2020-08-23 18:57] VITALS: BP 102/59
[2020-08-24] MEDS: predniSOLONE OPHTH SUSP 1%, 5ML HOMEOPHTH SCH ×2 (00:15→06:15)
[2020-08-24] MEDS: SODIUM CHLORIDE 0.9% IV SCH (02:24)
[2020-08-24] MEDS: CYTARABINE IV SCH (02:24)
[2020-08-24] MEDS: SODIUM CHLORIDE 0.9% 1,000 ML IV SCH (02:33)
[2020-08-24 02:36] VITALS: BP 119/63
[2020-08-24 06:27] LABS: BASOPHILS % (AUTO) 1 % (0-1); EOSINOPHILS % (AUTO) 0 % (1-7); LYMPHOCYTES % (AUTO) 2 % (22-44); MEAN CORPUSCULAR HEMOGLOBIN 32.9 pg (27.5-34.5); MEAN CORPUSCULAR HGB CONC 35.9 g/dL (33.2-36.2); MONOCYTES % (AUTO) 0 % (2-9); NEUTROPHILS % (AUTO) 97 % (42-75); PLATELET COUNT 177 x10^3/uL (130-400); RED BLOOD COUNT 2.42 x10^6/uL (4.38-5.82); RED CELL DISTRIBUTION WIDTH 17.6 % (9.4-14.8)
[2020-08-24 06:38] LABS: ALANINE AMINOTRANSFERASE 31 U/L (12-78); ALBUMIN 3.5 g/dL (3.4-5.0); ANION GAP 8 mmol/L (5-15); CALCIUM 8.9 mg/dL (8.5-10.1); CHLORIDE 103 mmol/L (98-107); CREATININE 0.79 mg/dL (0.7-1.3)
[2020-08-24 06:40] LABS: ALKALINE PHOSPHATASE 75 U/L (45-117); BILIRUBIN,TOTAL 0.3 mg/dL (0.2-1.0); TOTAL PROTEIN 6.9 g/dL (6.4-8.2)
[2020-08-24 06:58] LABS: MD SCAN
[2020-08-24 07:44] VITALS: BP 116/65
[2020-08-24] MEDS: ACYCLOVIR 400 MG TABLET PO SCH (08:56)
[2020-08-24] MEDS: PANTOPRAZOLE 40MG TABLET PO SCH (08:56)
== END 2020-08-24 11:18 | disposition home health service (06) | DRG 690 ==
LOC: 4NW 10:12
PROVIDERS: ADMIT Internal Medicine Hematology & Oncology; ATTEND Internal Medicine Hematology & Oncology
DX: C92.00 Acute myeloblastic leukemia, not having achieved remission (principal); D75.9 Disease of blood and blood-forming organs, unspecified
CPT/HCPCS: 36415; 80048; 80053; 83735; 84550; 85025; G0378; J1100; J1453; J2405; J9100; Q0162; Q0164; J7030; J7040

== ENCOUNTER 2020-09-13 10:05 | Inpatient (IN) | payer MEDICAID ==
[~2020-09-13] VITALS: Ht 185.4 cm; Wt 121.0 kg
[~2020-09-13 10:05] MED LIST changes: +PROC10TA2 PO
[2020-09-16 10:24] LABS: MEAN CORPUSCULAR HEMOGLOBIN 31.7 pg (27.5-34.5); MEAN CORPUSCULAR HGB CONC 34.9 g/dL (33.2-36.2); MEAN PLATELET VOLUME 8.9 fL (7.4-10.4); PLATELET COUNT 181 x10^3/uL (130-400); RED BLOOD COUNT 2.79 x10^6/uL (4.38-5.82)
[2020-09-16 10:35] LABS: ALANINE AMINOTRANSFERASE 40 U/L (12-78); ALBUMIN 3.6 g/dL (3.4-5.0); ANION GAP 5 mmol/L (5-15); CALCIUM 8.7 mg/dL (8.5-10.1); CHLORIDE 108 mmol/L (98-107); CREATININE 0.81 mg/dL (0.7-1.3)
[2020-09-16 10:37] LABS: ALKALINE PHOSPHATASE 87 U/L (45-117); BILIRUBIN,TOTAL 0.2 mg/dL (0.2-1.0)
[2020-09-16 11:26] LABS: MD YES
[2020-09-16 11:31] LABS: <PLATELET ESTIMATE> ADEQUATE; BAND#(MANUAL) 0.09 x10^3/uL; BANDS%(MANUAL) 2 % (0-7); LARGE PLATELETS 1+; LYMPH#(MANUAL) 0.89 x10^3/uL (1-3.4); LYMPHS% (MANUAL) 19 % (22-44); MONOS#(MANUAL) 0.85 x10^3/uL (0.3-2.7); MONOS% (MANUAL) 18 % (2-9); REACTIVE LYMPHS # (MANUAL) 0.09 x10^3/uL (0-0); REACTIVE LYMPHS % (MANUAL) 2 % (0-0); SEG#(MANUAL) 2.77 x10^3/uL (1.8-6.8); SEGS% (MANUAL) 59 % (42-75)
[2020-09-16 11:32] LABS: ANISOCYTOSIS 1+; POLYCHROMASIA 1+
[2020-09-16 11:41] VITALS: BP 124/61
[2020-09-16] MEDS: SODIUM CHLORIDE 0.9% 1,000 ML IV SCH ×2 (12:41→23:52)
[2020-09-16] MEDS: ONDANSETRON 16 MG, DEXAMETHASONE 12 MG in SODIUM CHLORIDE 0.9% 50 ML IVPB SCH (12:41)
[2020-09-16 12:46] VITALS: BP 124/61
[2020-09-16] MEDS: predniSOLONE OPHTH SUSP 1%, 5ML EACHEYE SCH ×3 (13:11→23:52)
[2020-09-16] MEDS ORDERED: FOSAPREPITANT 150 MG in SODIUM CHLORIDE 0.9% 145 ML IV ONE (13:30)
[2020-09-16] MEDS ORDERED: SODIUM CHLORIDE 0.9% IV SCH (14:00)
[2020-09-16] MEDS ORDERED: CYTARABINE IV SCH (14:00)
[2020-09-16] MEDS: SODIUM CHLORIDE 0.9% IV SCH (14:57)
[2020-09-16] MEDS: CYTARABINE IV SCH (14:57)
[2020-09-16 19:00] VITALS: BP 111/62
[2020-09-16] MEDS: OXYcodone/APAP 5/325MG TABLET PO PRN (20:55)
[2020-09-16] MEDS: ACYCLOVIR 400 MG TABLET PO SCH (20:55)
[2020-09-17] MEDS ORDERED: SODIUM CHLORIDE 0.9% IV SCH (02:00)
[2020-09-17] MEDS ORDERED: CYTARABINE IV SCH (02:00)
[2020-09-17 02:55] VITALS: BP 109/62
[2020-09-17] MEDS: CYTARABINE IV SCH (03:00)
[2020-09-17] MEDS: SODIUM CHLORIDE 0.9% IV SCH (03:00)
[2020-09-17 04:29] LABS: BASOPHILS % (AUTO) 1 % (0-1); EOSINOPHILS % (AUTO) 0 % (1-7); LYMPHOCYTES % (AUTO) 5 % (22-44); MEAN CORPUSCULAR HEMOGLOBIN 31.4 pg (27.5-34.5); MEAN CORPUSCULAR HGB CONC 34.8 g/dL (33.2-36.2); MEAN PLATELET VOLUME 8.5 fL (7.4-10.4); MONOCYTES % (AUTO) 4 % (2-9); NEUTROPHILS % (AUTO) 90 % (42-75); PLATELET COUNT 183 x10^3/uL (130-400); RED BLOOD COUNT 2.86 x10^6/uL (4.38-5.82); RED CELL DISTRIBUTION WIDTH 16.8 % (9.4-14.8)
[2020-09-17 04:40] LABS: ALANINE AMINOTRANSFERASE 40 U/L (12-78); ALBUMIN 3.5 g/dL (3.4-5.0); ANION GAP 7 mmol/L (5-15); CALCIUM 8.9 mg/dL (8.5-10.1); CHLORIDE 107 mmol/L (98-107)
[2020-09-17 04:42] LABS: ALKALINE PHOSPHATASE 76 U/L (45-117); BILIRUBIN,TOTAL 0.4 mg/dL (0.2-1.0); TOTAL PROTEIN 6.8 g/dL (6.4-8.2)
[2020-09-17] MEDS: predniSOLONE OPHTH SUSP 1%, 5ML EACHEYE SCH ×4 (05:30→22:35)
[2020-09-17 05:56] LABS: MD SCAN
[2020-09-17] MEDS: ENOXAPARIN 40 MG/0.4 ML SQ SCH (09:00)
[2020-09-17] MEDS: ACYCLOVIR 400 MG TABLET PO SCH ×2 (09:34→20:26)
[2020-09-17 10:24] VITALS: BP 131/74
[2020-09-17] MEDS: OXYcodone/APAP 5/325MG TABLET PO PRN (12:10)
[2020-09-17] MEDS: ONDANSETRON ODT 8 MG PO PRN (12:10)
[2020-09-17] MEDS: SODIUM CHLORIDE 0.9% 1,000 ML IV SCH (13:51)
[2020-09-17 14:26] VITALS: BP 125/78
[2020-09-17 19:56] VITALS: BP 132/62
[2020-09-17] MEDS: ONDANSETRON 2MG/ML, 2ML IV PRN (20:26)
[2020-09-17] MEDS ORDERED: LORazepam 1MG TABLET PO ONE (21:00)
[2020-09-17] MEDS: LORazepam 0.5MG TABLET PO PRN (21:25)
[2020-09-18] MEDS: SODIUM CHLORIDE 0.9% 1,000 ML IV SCH ×2 (00:33→18:05)
[2020-09-18 00:53] VITALS: BP 115/58
[2020-09-18] MEDS: predniSOLONE OPHTH SUSP 1%, 5ML EACHEYE SCH ×4 (05:37→21:19)
[2020-09-18 06:01] LABS: MEAN CORPUSCULAR HEMOGLOBIN 31.3 pg (27.5-34.5); MEAN CORPUSCULAR HGB CONC 33.8 g/dL (33.2-36.2); MEAN PLATELET VOLUME 8.5 fL (7.4-10.4); PLATELET COUNT 148 x10^3/uL (130-400); RED CELL DISTRIBUTION WIDTH 16.8 % (9.4-14.8)
[2020-09-18 06:06] LABS: RED BLOOD COUNT 2.25 x10^6/uL (4.38-5.82)
[2020-09-18 06:08] LABS: CHLORIDE 115 mmol/L (98-107)
[2020-09-18 06:16] LABS: ALANINE AMINOTRANSFERASE 28 U/L (12-78); ALBUMIN 2.7 g/dL (3.4-5.0); ALKALINE PHOSPHATASE 54 U/L (45-117); ANION GAP 5 mmol/L (5-15); BILIRUBIN,TOTAL 0.3 mg/dL (0.2-1.0); CALCIUM 7.1 mg/dL (8.5-10.1); CREATININE 0.62 mg/dL (0.7-1.3); TOTAL PROTEIN 5.2 g/dL (6.4-8.2)
[2020-09-18 06:19] LABS: MD YES
[2020-09-18 06:24] LABS: LYMPH#(MANUAL) 0.29 x10^3/uL (1-3.4); LYMPHS% (MANUAL) 18 % (22-44); MONOS#(MANUAL) 0.14 x10^3/uL (0.3-2.7); MONOS% (MANUAL) 9 % (2-9); SEG#(MANUAL) 1.17 x10^3/uL (1.8-6.8); SEGS% (MANUAL) 73 % (42-75)
[2020-09-18 06:25] LABS: <PLATELET ESTIMATE> ADEQUATE; <PLT MORPHOLOGY> NORMAL PLT MORPH; ANISOCYTOSIS 1+; POLYCHROMASIA 1+
[2020-09-18 06:27] LABS: MICROCYTOSIS 1+
[2020-09-18 06:50] VITALS: BP 123/61
[2020-09-18 09:04] LABS: MEAN CORPUSCULAR HEMOGLOBIN 31.1 pg (27.5-34.5); MEAN PLATELET VOLUME 8.3 fL (7.4-10.4); PLATELET COUNT 170 x10^3/uL (130-400); RED BLOOD COUNT 2.61 x10^6/uL (4.38-5.82); RED CELL DISTRIBUTION WIDTH 16.8 % (9.4-14.8)
[2020-09-18 09:37] LABS: MD YES
[2020-09-18 09:48] LABS: ANISOCYTOSIS 1+; BAND#(MANUAL) 0.02 x10^3/uL; BANDS%(MANUAL) 1 % (0-7); BASOS#(MANUAL) 0.02 x10^3/uL (0-0.1); BASOS% (MANUAL) 1 % (0-1); LYMPH#(MANUAL) 0.29 x10^3/uL (1-3.4); LYMPHS% (MANUAL) 16 % (22-44); MICROCYTOSIS 1+; MONOS#(MANUAL) 0.18 x10^3/uL (0.3-2.7); MONOS% (MANUAL) 10 % (2-9); SEGS% (MANUAL) 72 % (42-75)
[2020-09-18 09:49] LABS: <PLATELET ESTIMATE> ADEQUATE; <PLT MORPHOLOGY> NORMAL PLT MORPH; POLYCHROMASIA 1+
[2020-09-18] MEDS: ACYCLOVIR 400 MG TABLET PO SCH ×2 (10:11→21:00)
[2020-09-18] MEDS: ENOXAPARIN 40 MG/0.4 ML SQ SCH (10:12)
[2020-09-18 12:34] VITALS: BP 116/75
[2020-09-18] MEDS: ONDANSETRON 16 MG, DEXAMETHASONE 12 MG in SODIUM CHLORIDE 0.9% 50 ML IVPB SCH (14:00)
[2020-09-18] MEDS: SODIUM CHLORIDE 0.9% IV SCH (15:00)
[2020-09-18] MEDS: CYTARABINE IV SCH (15:00)
[2020-09-18] MEDS: PROCHLORPERAZINE 10MG TABLET PO PRN (15:18)
[2020-09-18] MEDS: OXYcodone/APAP 5/325MG TABLET PO PRN (15:59)
[2020-09-18] MEDS: POTASSIUM CHLORIDE 20 MEQ TAB.ER.PRT PO SCH (18:05)
[2020-09-18 19:16] VITALS: BP 116/67
[2020-09-18] MEDS: LORazepam 0.5MG TABLET PO PRN (21:19)
[2020-09-18] MEDS: ONDANSETRON 2MG/ML, 2ML IV PRN (21:19)
[2020-09-19 03:19] VITALS: BP 114/70
[2020-09-19] MEDS: SODIUM CHLORIDE 0.9% IV SCH (03:23)
[2020-09-19] MEDS: CYTARABINE IV SCH (03:23)
[2020-09-19] MEDS: predniSOLONE OPHTH SUSP 1%, 5ML EACHEYE SCH ×4 (06:02→23:07)
[2020-09-19] MEDS: SODIUM CHLORIDE 0.9% 1,000 ML IV SCH ×2 (06:15→21:14)
[2020-09-19 06:32] LABS: BASOPHILS % (AUTO) 1 % (0-1); EOSINOPHILS % (AUTO) 0 % (1-7); LYMPHOCYTES % (AUTO) 5 % (22-44); MEAN CORPUSCULAR HEMOGLOBIN 31.3 pg (27.5-34.5); MEAN CORPUSCULAR HGB CONC 33.7 g/dL (33.2-36.2); MEAN PLATELET VOLUME 8.2 fL (7.4-10.4); MONOCYTES % (AUTO) 2 % (2-9); NEUTROPHILS % (AUTO) 93 % (42-75); PLATELET COUNT 164 x10^3/uL (130-400); RED BLOOD COUNT 2.29 x10^6/uL (4.38-5.82); RED CELL DISTRIBUTION WIDTH 16.6 % (9.4-14.8)
[2020-09-19 06:37] LABS: ALANINE AMINOTRANSFERASE 28 U/L (12-78); ALBUMIN 2.9 g/dL (3.4-5.0); ANION GAP 4 mmol/L (5-15); CALCIUM 7.4 mg/dL (8.5-10.1); CHLORIDE 111 mmol/L (98-107); CREATININE 0.56 mg/dL (0.7-1.3)
[2020-09-19 06:39] LABS: ALKALINE PHOSPHATASE 57 U/L (45-117); BILIRUBIN,TOTAL 0.2 mg/dL (0.2-1.0); TOTAL PROTEIN 5.6 g/dL (6.4-8.2)
[2020-09-19 06:58] LABS: MD SCAN
[2020-09-19 08:18] VITALS: BP 123/60
[2020-09-19] MEDS: ENOXAPARIN 40 MG/0.4 ML SQ SCH (09:17)
[2020-09-19] MEDS: ACYCLOVIR 400 MG TABLET PO SCH ×2 (10:21→21:12)
[2020-09-19] MEDS: OXYcodone/APAP 5/325MG TABLET PO PRN (10:21)
[2020-09-19 11:53] VITALS: BP 117/70
[2020-09-19 12:20] VITALS: BP 134/67
[2020-09-19] MEDS: LORazepam 0.5MG TABLET PO PRN ×2 (13:18→21:12)
[2020-09-19 14:37] VITALS: BP 133/67
[2020-09-19] MEDS: POTASSIUM CHLORIDE 20 MEQ TAB.ER.PRT PO SCH (17:57)
[2020-09-19] MEDS: ONDANSETRON ODT 8 MG PO PRN (17:57)
[2020-09-19 19:31] VITALS: BP 116/66
[2020-09-20 03:24] VITALS: BP 114/72
[2020-09-20 04:39] LABS: BASOPHILS % (AUTO) 1 % (0-1); EOSINOPHILS % (AUTO) 0 % (1-7); LYMPHOCYTES % (AUTO) 14 % (22-44); MEAN CORPUSCULAR HEMOGLOBIN 31.4 pg (27.5-34.5); MEAN CORPUSCULAR HGB CONC 34.4 g/dL (33.2-36.2); MEAN PLATELET VOLUME 7.9 fL (7.4-10.4); MONOCYTES % (AUTO) 1 % (2-9); NEUTROPHILS % (AUTO) 85 % (42-75); PLATELET COUNT 162 x10^3/uL (130-400); RED BLOOD COUNT 2.87 x10^6/uL (4.38-5.82); RED CELL DISTRIBUTION WIDTH 16.2 % (9.4-14.8)
[2020-09-20 04:46] LABS: ALBUMIN 3.6 g/dL (3.4-5.0); ANION GAP 5 mmol/L (5-15); CALCIUM 8.9 mg/dL (8.5-10.1); CHLORIDE 108 mmol/L (98-107)
[2020-09-20 04:50] LABS: ALANINE AMINOTRANSFERASE 32 U/L (12-78); ALKALINE PHOSPHATASE 65 U/L (45-117); BILIRUBIN,TOTAL 0.5 mg/dL (0.2-1.0); CREATININE 0.78 mg/dL (0.7-1.3); TOTAL PROTEIN 6.7 g/dL (6.4-8.2)
[2020-09-20 05:02] LABS: ANISOCYTOSIS 1+; MD MORPH REVIEW ONLY; MICROCYTOSIS 1+; OVALOCYTES 1+
[2020-09-20 05:03] LABS: <PLATELET ESTIMATE> ADEQUATE; <PLT MORPHOLOGY> NORMAL PLT MORPH
[2020-09-20] MEDS: predniSOLONE OPHTH SUSP 1%, 5ML EACHEYE SCH ×4 (05:30→21:59)
[2020-09-20] MEDS: ENOXAPARIN 40 MG/0.4 ML SQ SCH (09:37)
[2020-09-20] MEDS: ACYCLOVIR 400 MG TABLET PO SCH ×2 (10:08→20:45)
[2020-09-20] MEDS: LORazepam 0.5MG TABLET PO PRN ×2 (10:11→20:45)
[2020-09-20] MEDS: OXYcodone/APAP 5/325MG TABLET PO PRN (10:12)
[2020-09-20 10:14] VITALS: BP 114/67
[2020-09-20] MEDS: PROCHLORPERAZINE 10MG TABLET PO PRN (12:19)
[2020-09-20] MEDS ORDERED: LEVO500T8 PO (12:23)
[2020-09-20] MEDS ORDERED: FLUC200T4 PO (12:23)
[2020-09-20] MEDS ORDERED: FOSAPREPITANT 150 MG in SODIUM CHLORIDE 0.9% 145 ML IV ONE (13:30)
[2020-09-20] MEDS: SODIUM CHLORIDE 0.9% 1,000 ML IV SCH (13:59)
[2020-09-20] MEDS: ONDANSETRON 16 MG, DEXAMETHASONE 12 MG in SODIUM CHLORIDE 0.9% 50 ML IVPB SCH (15:02)
[2020-09-20] MEDS: CYTARABINE IV SCH (15:38)
[2020-09-20] MEDS: SODIUM CHLORIDE 0.9% IV SCH (15:38)
[2020-09-20 16:13] VITALS: BP 107/67
[2020-09-20] MEDS: POTASSIUM CHLORIDE 20 MEQ TAB.ER.PRT PO SCH (16:57)
[2020-09-20] MEDS: ONDANSETRON 2MG/ML, 2ML IV PRN (19:05)
[2020-09-20 19:42] VITALS: BP 129/65
[2020-09-21 03:14] VITALS: BP 120/64
[2020-09-21 03:38] LABS: BASOPHILS % (AUTO) 0 % (0-1); EOSINOPHILS % (AUTO) 0 % (1-7); LYMPHOCYTES % (AUTO) 3 % (22-44); MEAN CORPUSCULAR HEMOGLOBIN 31.3 pg (27.5-34.5); MEAN CORPUSCULAR HGB CONC 35.1 g/dL (33.2-36.2); MEAN PLATELET VOLUME 8.1 fL (7.4-10.4); MONOCYTES % (AUTO) 0 % (2-9); NEUTROPHILS % (AUTO) 97 % (42-75); PLATELET COUNT 170 x10^3/uL (130-400); RED CELL DISTRIBUTION WIDTH 15.6 % (9.4-14.8)
[2020-09-21 03:40] LABS: MD NO
[2020-09-21] MEDS: CYTARABINE IV SCH (03:43)
[2020-09-21] MEDS: SODIUM CHLORIDE 0.9% IV SCH (03:43)
[2020-09-21 03:49] LABS: ALANINE AMINOTRANSFERASE 50 U/L (12-78); ALBUMIN 3.7 g/dL (3.4-5.0); ANION GAP 5 mmol/L (5-15); CHLORIDE 105 mmol/L (98-107); CREATININE 0.84 mg/dL (0.7-1.3)
[2020-09-21 03:51] LABS: ALKALINE PHOSPHATASE 74 U/L (45-117); BILIRUBIN,TOTAL 0.4 mg/dL (0.2-1.0); TOTAL PROTEIN 7.3 g/dL (6.4-8.2)
[2020-09-21] MEDS: predniSOLONE OPHTH SUSP 1%, 5ML EACHEYE SCH (04:59)
[2020-09-21] MEDS: SODIUM CHLORIDE 0.9% 1,000 ML IV SCH (04:59)
[2020-09-21 06:36] VITALS: BP 117/67
[2020-09-21] MEDS: ENOXAPARIN 40 MG/0.4 ML SQ SCH (08:21)
[2020-09-21] MEDS: ACYCLOVIR 400 MG TABLET PO SCH (08:31)
[2020-09-22] MEDS ORDERED: PEGFILGRASTIM 6 MG/0.6 ML SQ ONE (08:00)
== END 2020-09-21 08:50 | disposition home or self-care (01) | DRG 695 ==
LOC: 4NW 09-16 09:25 → DCLOUNGE 09-21 08:45
PROVIDERS: ADMIT Internal Medicine Hematology & Oncology; ATTEND Internal Medicine Hematology & Oncology
PROC: 30233N1 Transfusion of Nonautologous Red Blood Cells into Peripheral Vein, Percutaneous Approach (ICD-10-PCS; 2020-09-19)
PROC: XW033B3 Introduction of Cytarabine and Daunorubicin Liposome Antineoplastic into Peripheral Vein, Percutaneous Approach, New Technology Group 3 (ICD-10-PCS; principal; 2020-09-20)
DX: Z51.11 Encounter for antineoplastic chemotherapy (principal); C92.00 Acute myeloblastic leukemia, not having achieved remission; D61.818 Other pancytopenia; E87.6 Hypokalemia; G47.00 Insomnia, unspecified; E83.51 Hypocalcemia; F41.9 Anxiety disorder, unspecified; Z86.16 Personal history of COVID-19; Z79.899 Other long term (current) drug therapy
CPT/HCPCS: 36415; 80053; 85025; 86850; 86900; 86923; G0378; J1100; J1453; J2405; J9100; Q0162; Q0164; J7030; J7040; P9040

== ENCOUNTER 2020-10-25 07:33 | Day surgery (SDC) | payer MEDICAID ==
[~2020-10-25] VITALS: Ht 185.4 cm; Wt 121.4 kg
[2020-10-25 08:31] VITALS: BP 133/87
[2020-10-25] MEDS ORDERED: SODIUM CHLORIDE 0.9% 1,000 ML IV SCH (09:00)
[2020-10-25] MEDS ORDERED: NALOXONE 1 MG/ML, 2ML ONE (09:09)
[2020-10-25] MEDS ORDERED: FLUMAZENIL 0.1 MG/1 ML, 5ML ONE (09:09)
[2020-10-25] MEDS ORDERED: FENTANYL PF 100 MCG/2ML ONE (09:09)
[2020-10-25] MEDS ORDERED: MIDAZOLAM 1 MG/ML, 5ML ONE (09:09)
[2020-10-25 09:41] LABS: BASOPHILS % (AUTO) 1 % (0-1); EOSINOPHILS % (AUTO) 0 % (1-7); LYMPHOCYTES % (AUTO) 23 % (22-44); MEAN CORPUSCULAR HEMOGLOBIN 31.7 pg (27.5-34.5); MEAN CORPUSCULAR HGB CONC 33.6 g/dL (33.2-36.2); MEAN PLATELET VOLUME 7.8 fL (7.4-10.4); MONOCYTES % (AUTO) 23 % (2-9); NEUTROPHILS % (AUTO) 52 % (42-75); PLATELET COUNT 399 x10^3/uL (130-400); RED CELL DISTRIBUTION WIDTH 18.2 % (9.4-14.8)
[2020-10-25] MEDS ORDERED: OXYcodone 5 MG/5 ML ORAL.SOL UDC ONE (10:49)
[2020-10-25] MEDS ORDERED: OXYcodone 5 MG/5 ML ORAL.SOL UDC PO PRN (11:00)
== END 2020-10-25 11:16 | disposition home or self-care (01) ==
LOC: OUT 07:33
PROVIDERS: ATTEND Internal Medicine Hematology & Oncology
DX: C92.01 Acute myeloblastic leukemia, in remission (principal); Z79.899 Other long term (current) drug therapy; Z79.2 Long term (current) use of antibiotics; Z88.0 Allergy status to penicillin; Z88.8 Allergy status to other drugs, medicaments and biological substances; Z72.89 Other problems related to lifestyle; Z87.891 Personal history of nicotine dependence
CPT/HCPCS: 36415; 38222; 77012; 85025; 85060; 85097; 88237; 88264; 88280; 88305; 88311; 88313; 99156; 99157; J2250; J3010; J7030; J2310